=== PATIENT | male | born 1950 | race Caucasian/White ===

== ENCOUNTER → 2016-08-31 | Outpatient (REF) | payer MEDICARE ==
[~2016-08-31] MED LIST: /AMLO25TA PO; /PANT40TA OR; /TAMS4CA OR; ACET65TA OR; ADVA45AE INH; AMLO10TAB OR; ASPI81TA85 PO; BENA10TA PO; CEPACOL LOZENGE PO; CORE25TA PO; IBUP600T OR; LANCMIS XX; LEVA750T OR; LEVO750T PO; LOTENSIN HCT OR; MAALSUS OR; METF500T PO; OMEP40CA2 PO; OXYB5TA PO; OXYC-208 PO; PRED10PA PO; PRED20TA PO; RIBO100C PO; SOMA350T OR; SOMA350T PO; TESS100C PO; TYLENOL #3 OR; VENTAER IN; VENTAER INH; [UNRECOGNIZED DRUG - CODE] MT; [UNRECOGNIZED DRUG - SUPPLY]
[2016-08-31 12:58] LABS: ALBUMIN 3.5 GM/DL (3.2-5.2); ALBUMIN/GLOBULIN RATIO 1.03 (1.00-1.93); BILIRUBIN,DIRECT 0.2 MG/DL (0.0-0.2); BILIRUBIN,TOTAL 0.5 MG/DL (0.2-1.0); TOTAL PROTEIN 6.9 GM/DL (6.4-8.2)
== END ==
LOC: M LABDRWAD 12:22
PROVIDERS: ATTEND Internal Medicine Gastroenterology
DX: R93.3 Abnormal findings on diagnostic imaging of other parts of digestive tract (principal)

== ENCOUNTER → 2016-09-14 | Outpatient (CLI) | payer MEDICARE ==
[2016-09-14 13:44] LABS: ALBUMIN 3.3 GM/DL (3.2-5.2); ALBUMIN/GLOBULIN RATIO 0.87 (1.00-1.93); ALKALINE PHOSPHATASE 71 U/L (45-117); ALT/SGPT 20 U/L (12-78); ANION GAP 7 MEQ/L (8-16); AST/SGOT 16 U/L (15-37); BILIRUBIN,TOTAL 0.5 MG/DL (0.2-1.0); BLOOD UREA NITROGEN 11 MG/DL (7-18); CALCIUM LEVEL 8.9 MG/DL (8.8-10.2); CARBON DIOXIDE LEVEL 31 MEQ/L (21-32); CHLORIDE LEVEL 103 MEQ/L (98-107); CHOLESTEROL LEVEL 126 MG/DL (<200); CREATININE FOR GFR 1.01 MG/DL (0.70-1.30); GLOMERULAR FILTRATION RATE > 60.0 (>49); GLUCOSE, FASTING 121 MG/DL (80-110); POTASSIUM SERUM 4.6 MEQ/L (3.5-5.1); SODIUM LEVEL 141 MEQ/L (136-145); TOTAL PROTEIN 7.1 GM/DL (6.4-8.2); TRIGLYCERIDES LEVEL 130 MG/DL (<150)
== END ==
LOC: M LAB 12:37
PROVIDERS: ATTEND Physician Assistant
DX: E11.9 Type 2 diabetes mellitus without complications (principal); I10 Essential (primary) hypertension; E78.4 Other hyperlipidemia; Z12.5 Encounter for screening for malignant neoplasm of prostate

== ENCOUNTER → 2016-09-14 | Outpatient (CLI) | payer MEDICARE ==
[2016-09-14 13:41] LABS: BLOOD UREA NITROGEN 11 MG/DL (7-18); CREATININE FOR GFR 1.01 MG/DL (0.70-1.30); GLOMERULAR FILTRATION RATE > 60.0 (>49)
--- NOTE | 2016-09-14 19:45 | REP ---
MRI study of the abdomen without and with IV gadolinium: History: Gallbladder mass. Comparison sonography: 06/18/2016. MRI contrast dose: 17.8 mL of intravenous ProHance is administered. MR technique: Axial and coronal T1 and T2-weighted scans are obtained including true FISP, spin echo, turbo spin-echo, in and out of phase, and dynamically acquired sequential post gadolinium enhanced 2-D gradient echo T1 fat sat images. MRI findings: The gallbladder is somewhat distended and there is heterogeneous material in the dependent portion the gallbladder consistent with sludge and gravel like stones. Gallbladder wall is thin and no mass lesion is seen. No enhancement is seen post contrast within the intraluminal material in the gallbladder. No liver mass lesion is seen. No abnormal splenic or pancreatic enhancement or mass lesion is observed. There is a cyst in the lower pole right kidney and another cyst is seen at mid pole position of the left kidney. These measure 2.3 and 2.1 cm in greatest diameter respectively and appear to be simple cysts. No adrenal lesion is seen on either side. No pleural effusion or ascites is noted. Impression: Gravel like calculi and sludge in the gallbladder lumen. No evidence of gallbladder mass. Normal CBD and pancreatic ducts. Caliber. No abnormal contrast enhancement seen. Signed by Taras Urias MD 09/15/2016 10:04 A
== END ==
LOC: M RAD 12:27
PROVIDERS: ATTEND Surgery
DX: R93.3 Abnormal findings on diagnostic imaging of other parts of digestive tract (principal); K80.20 Calculus of gallbladder without cholecystitis without obstruction; E11.9 Type 2 diabetes mellitus without complications; I10 Essential (primary) hypertension; E78.4 Other hyperlipidemia; Z12.5 Encounter for screening for malignant neoplasm of prostate
CPT/HCPCS: 36415; 74183; 80053; 80061; 82043; 83036; A9576; G0103

== ENCOUNTER 2016-09-23 07:45 | Emergency (ER) | payer MEDICARE ==
[2016-09-23] MEDS ORDERED: predniSONE 20 MG TAB As Ordered ONE (08:09)
[2016-09-23] MEDS ORDERED: IPRATROPIUM 0.5MG/ALBUTEROL 2.5MG INH SOL UD 3ML (DUONEB)(J7620) As Ordered ONE (08:12)
[2016-09-23] MEDS ORDERED: BENZONATATE 100 MG CAP As Ordered ONE (09:03)
[2016-09-23] MEDS ORDERED: BUDESONIDE 0.5 MG/2 ML INHALATION SUSPENSION INH ONE (09:30)
--- NOTE | 2016-09-23 10:45 | EDDOCDS ---
Nurse's Notes [facility] Name: Amando Ovalle Age: 65 yrs Sex: Male : 1950 Arrival Date: 09/23/2016 Time: 07:45 Bed I3 / M3 Private MD: Diagnosis: Chronic obstructive pulmonary disease with (acute) exacerbation Presentation: 09/23 07:49 Presenting complaint: Patient states: non productive cough x 4 days - reports headache pml and joint pains. Adult Sepsis Screening: The patient does not have new or worsening altered mentation. Patient's respiratory rate is less than 22. Systolic blood pressure is greater than 100. Patient has a qSOFA score of 0- Negative Sepsis Screen. Suicide/Homicide risk assessment- the patient denies having any suicidal and/or homicidal ideations and does not present with any other emotional, behavioral or mental health complaints. Status: Patient is not a business services officer or dependent. Transition of care: patient was not received from another setting of care. 07:49 Method Of Arrival: Walkin/Carried/Asstd pml 07:49 Acuity: ZOE Level 4 pml Triage Assessment: 07:55 General: Appears in no apparent distress, Behavior is appropriate for age, cooperative. pml Pain: Location: scalp and back Pain currently is 7 out of 10 on a pain scale. HIV screening NA for this visit Offered previously. Historical: - Allergies: no known allergies; - Home Meds: 1. metformin 1,000 mg oral TG24 1 tab 2 times per day 2. amlodipine 10 mg oral tab 1 tab once daily 3. oxycodone 5 mg Oral tab 1 tab every 4-6 hours 4. carisoprodol 350 mg oral tab 1 tab 3 times per day 5. atorvastatin 40 mg oral tab 1 tab once daily 6. omeprazole 40 mg Oral cpDR 1 cap once daily 7. oxybutynin chloride 5 mg Oral tab daily 8. tamsulosin 0.4 mg oral cp24 1 cap once daily - PMHx: Diabetes - NIDDM: uncontrolled; High Cholesterol; Hypertension; Chronic Back pain; - PSHx: back surgery; Appendectomy; - Social history: Smoking status: Patient uses tobacco products, heavy tobacco smoker. No barriers to communication noted, The patient speaks fluent Icelandic, Speaks appropriately for age. - Family history: Not pertinent. - : The pt / caregiver states he / she is not on anticoagulants. Home medication list is obtained from patients' pharmacy. Unable to Verify Home Med List with the patient / caregiver. - Exposure Risk Screening:: None identified. Screenin:13 Screening information is obtained from the patient. Fall risk: No risks identified. ck1 Assistance ADL's: requires no assistance with activities of daily living. Abuse/DV Screen: The patient / caregiver reports he/she is: not in a situation that causes fear, pain or injury. Nutritional screening: No deficits noted. Advance Directives: Currently, there is no health care proxy. home support is adequate. Assessment: 08:13 General: Appears in no apparent distress, comfortable, Behavior is appropriate for age, ck1 cooperative. Pain: Location: head and chest Pain currently is 8 out of 10 on a pain scale. Aggravated by coughing. Respiratory: Respiratory effort is unlabored, Respiratory pattern is regular, symmetrical, Breath sounds are diminished Breath sounds with wheezes bilaterally. Derm: Skin is pink, warm & dry. 09:06 General: Appears in no apparent distress, comfortable, Behavior is appropriate for age, ck1 cooperative. Pain: Location: chest and head Pain currently is 8 out of 10 on a pain scale. Aggravated by cough. Respiratory: Respiratory effort is unlabored, Respiratory pattern is regular, symmetrical, Reports cough that is dry, persistent. Derm: Skin is pink, warm & dry. 10:26 General: Appears in no apparent distress, Behavior is appropriate for age, cooperative. mlb1 Pain: Location: chest and head Pain currently is 8 out of 10 on a pain scale. Respiratory: Airway is patent Respiratory effort is even, unlabored, Reports cough that is dry, persistent. Derm: No deficits noted. 10:44 General: Appears in no apparent distress, comfortable, Behavior is appropriate for age, ck1 cooperative. Pain: Location: head Pain currently is 8 out of 10 on a pain scale. Neurological: Level of Consciousness is awake, alert, obeys commands, Oriented to person, place, time. Respiratory: Respiratory effort is unlabored, Respiratory pattern is regular, symmetrical, Reports cough that is dry, persistent. Derm: Skin is pink, warm & dry. Vital Signs: 07:49 BP 139 / 87; Pulse 106; Resp 22; Temp 98.7; Pulse Ox 94% on R/A; Weight 90.72 kg; pml Height 5 ft. 11 in. (180.34 cm); 10:28 BP 118 / 55; Pulse 95; Resp 18; Temp 98.2(O); Pulse Ox 97% on R/A; Pain 8/10; jml1 07:49 Body Mass Index 27.89 (90.72 kg, 180.34 cm) [facility] Vitals: 07:49 Log In Time: September 23, 2016 at 07:46. [facility] ED Course: 07:46 Patient visited by Maddie Weiner, Reg. hs2 07:46 Patient moved to Waiting hs2 07:50 Triage Initiated pml 07:56 Patient visited by Rosa Jaquez,JUANPABLO. pml 07:56 Patient moved to I3 / M3 pml 08:04 Dean Rodriguez PA-C is PHCP. cc10 08:04 Karel Bustamante MD is Attending Physician. cc10 08:04 Patient visited by Dean Rodriguez PA-C. cc10 08:04 Patient visited by Dean Rodriguez PA-C. cc10 08:13 No IV's were initiated during this patient's visit. No procedures done that require ck1 assistance. 08:14 The patient / caregiver is instructed regarding the plan of care and ED course. ck1 08:39 Patient visited by Maribel Egan RN. ck1 09:05 Patient visited by Maribel Egan RN. ck1 09:45 Patient visited by Maribel Egan RN. ck1 10:27 Patient visited by Simeon Dominguez, JUANPABLO. mlb1 10:28 Patient visited by Jony Gonzalez. jml1 Administered Medications: 08:13 Drug: predniSONE 40 mg [prednisone 20 mg tablet (2 tabs)] Route: PO; ck1 08:14 Drug: Albuterol-Ipratropium 3 ml [ipratropium-albuterol 0.5 mg-3 mg(2.5 mg base)/3 mL js nebulization soln (3 mL)] Route: Inhalation; 09:06 Drug: Tessalon 200 mg Route: PO; ck1 10:01 Drug: Pulmicort 2 mg Route: Inhalation; js RT: 08:14 Initial Med Neb Given as ordered Patient was instructed and evaluated on procedure js Patient tolerated procedure well without adverse effect. Respiratory: Breath sounds are diminished bilaterally. 10:02 Subsequent Med Neb Given as ordered. Respiratory: Breath sounds are diminished js bilaterally. Order Results: There are currently no results for this order. Outcome: 10:34 Discharge ordered by Provider. cc10 10:43 Discharge Assessment: Patient awake, alert and oriented x 3. No cognitive and/or ck1 functional deficits noted. Patient verbalized understanding of disposition instructions. patient administered narcotics - no. The following High Risk Discharge criteria are identified: None. Discharged to home ambulatory. Condition: stable. Discharge instructions given to patient, Instructed on discharge instructions, follow up and referral plans. medication usage, Demonstrated understanding of instructions, medications, Pt was receptive of discharge instructions/ teaching. Prescriptions given X 4. No special radiology studies were completed. Property :Personal belongings accompany Pt. 10:45 Patient left the ED. ck1 Signatures: Louie Simon Michael B RN RN mlb1 Maribel Egan RN RN ck1 Jony Gonzalez jml1 Rosa Jaquez RN RN pml Dean Rodriguez, PA-C PA-C cc10 Maddie Weiner, Reg Reg hs2 Corrections: (The following items were deleted from the chart) 07:56 07:49 Acuity: ZOE Level 3 pml pml MTDD
--- NOTE | 2016-09-23 10:45 | EDDOCDS ---
Physician Documentation [facility] Name: Amando Ovalle Age: 65 yrs Sex: Male : 1950 Arrival Date: 09/23/2016 Time: 07:45 Bed I3 / M3 Private MD: Disposition: 09/23/16 10:34 Discharged to Home/Self Care. Impression: Chronic obstructive pulmonary disease with (acute) exacerbation. - Condition is Stable. - Discharge Instructions: Chronic Obstructive Pulmonary Disease. - Prescriptions for hydrocodone- guaifenesin 2.5-200 mg/5 mL Oral solution - take 10 milliliter by ORAL route every 6 hours As needed MDD: 40 ML; 150 milliliter. Prednisone 20 mg Oral Tablet - take 1 tablet by ORAL route once daily for 3 days; 3 tablet. Pulmicort Flexhaler 90 mcg/actuation - inhale 2 puff by INHALATION route 2 times per day; 1 unit. benzonatate 200 mg Oral Capsule - take 1 capsule by ORAL route 3 times per day As needed; 30 capsule. - Medication Reconciliation, Local Pharmacy Hours form. - Follow up: Private Physician; When: Call to arrange an appointment; Reason: Wound/Symptom Recheck, Recheck today's complaints, Worsening of conditions, Continuance of care. - Problem is new. - Symptoms have improved. Historical: - Allergies: no known allergies; - Home Meds: 1. metformin 1,000 mg oral TG24 1 tab 2 times per day 2. amlodipine 10 mg oral tab 1 tab once daily 3. oxycodone 5 mg Oral tab 1 tab every 4-6 hours 4. carisoprodol 350 mg oral tab 1 tab 3 times per day 5. atorvastatin 40 mg oral tab 1 tab once daily 6. omeprazole 40 mg Oral cpDR 1 cap once daily 7. oxybutynin chloride 5 mg Oral tab daily 8. tamsulosin 0.4 mg oral cp24 1 cap once daily - PMHx: Diabetes - NIDDM: uncontrolled; High Cholesterol; Hypertension; Chronic Back pain; - PSHx: back surgery; Appendectomy; - Social history: Smoking status: Patient uses tobacco products, heavy tobacco smoker. No barriers to communication noted, The patient speaks fluent [place], Speaks appropriately for age. - Family history: Not pertinent. - : The pt / caregiver states he / she is not on anticoagulants. Home medication list is obtained from patients' pharmacy. Unable to Verify Home Med List with the patient / caregiver. - Exposure Risk Screening:: None identified. Vital Signs: 09/23 07:49 BP 139 / 87; Pulse 106; Resp 22; Temp 98.7; Pulse Ox 94% on R/A; Weight 90.72 kg / 200 pml lbs; Height 5 ft. 11 in. (180.34 cm); 10:28 BP 118 / 55; Pulse 95; Resp 18; Temp 98.2(O); Pulse Ox 97% on R/A; Pain 8/10; jml1 07:49 Body Mass Index 27.89 (90.72 kg, 180.34 cm) pml MDM: 08:08 Albuterol-Ipratropium 3 ml Inhalation once ordered. cc10 08:08 Call Respiratory ordered. cc10 08:08 predniSONE 40 mg PO once; administer with food or milk ordered. cc10 08:08 Call Respiratory complete. ck1 08:09 Chest, 2 View (pa\E\lat) Ordered. EDMS 08:36 Financial registration complete. mpb 08:57 Tessalon 200 mg PO once ordered. cc10 08:57 Call Respiratory ordered. cc10 08:57 Pulmicort 2 mg Inhalation once ordered. cc10 08:59 Call Respiratory complete. ck1 10:21 Vital Signs ordered. cc10 Administered Medications: 08:13 Drug: predniSONE 40 mg [prednisone 20 mg tablet (2 tabs)] Route: PO; ck1 08:14 Drug: Albuterol-Ipratropium 3 ml [ipratropium-albuterol 0.5 mg-3 mg(2.5 mg base)/3 mL js nebulization soln (3 mL)] Route: Inhalation; 09:06 Drug: Tessalon 200 mg Route: PO; ck1 10:01 Drug: Pulmicort 2 mg Route: Inhalation; js Signatures: Dispatcher [employer] EDMS Maribel Egan RN RN ck1 Rosa Jaquez RN RN pml Dean Rodriguez, PA-C PA-C cc10 Simeon Phan, Reg Reg Louie Rivers MTDD
--- NOTE | 2016-09-23 13:45 | REP ---
CHEST PA AND LATERAL: 09/23/2016. Clinical history: Cough. Comparison: 12/25/2014, 07/09/2014. Findings: Lungs are well inflated. There is no pleural effusion, dense consolidation or pneumothorax. Underlying interstitial fibrotic changes noted. There is peribronchial thickening noted bilaterally suggesting some bronchitis or reactive airway disease. No pulmonary edema. There is no cardiomegaly. The aorta is calcified at the arch but without aneurysm. Airway intact. No mediastinal or hilar mass. Bones show no compression deformity. There is no free air under the diaphragm. Impression: 1. Perihilar changes of bronchitis or reactive airway disease without dense consolidation, pleural effusion, cardiomegaly or edema. Signed by Flavio Tabor MD 09/23/2016 07:22 P
--- NOTE | 2016-09-25 11:46 | EDDOCDS ---
Nurse's Notes [facility] Name: Amando Ovalle Age: 65 yrs Sex: Male : 1950 Arrival Date: 09/23/2016 Time: 07:45 Bed I3 / M3 Private MD: Diagnosis: Chronic obstructive pulmonary disease with (acute) exacerbation Presentation: 09/23 07:49 Presenting complaint: Patient states: non productive cough x 4 days - reports headache pml and joint pains. Adult Sepsis Screening: The patient does not have new or worsening altered mentation. Patient's respiratory rate is less than 22. Systolic blood pressure is greater than 100. Patient has a qSOFA score of 0- Negative Sepsis Screen. Suicide/Homicide risk assessment- the patient denies having any suicidal and/or homicidal ideations and does not present with any other emotional, behavioral or mental health complaints. Status: Patient is not a bibliographic services specialist or dependent. Transition of care: patient was not received from another setting of care. 07:49 Method Of Arrival: Walkin/Carried/Asstd pml 07:49 Acuity: ZOE Level 4 pml Triage Assessment: 07:55 General: Appears in no apparent distress, Behavior is appropriate for age, cooperative. pml Pain: Location: scalp and back Pain currently is 7 out of 10 on a pain scale. HIV screening NA for this visit Offered previously. Historical: - Allergies: no known allergies; - Home Meds: 1. metformin 1,000 mg oral TG24 1 tab 2 times per day 2. amlodipine 10 mg oral tab 1 tab once daily 3. oxycodone 5 mg Oral tab 1 tab every 4-6 hours 4. carisoprodol 350 mg oral tab 1 tab 3 times per day 5. atorvastatin 40 mg oral tab 1 tab once daily 6. omeprazole 40 mg Oral cpDR 1 cap once daily 7. oxybutynin chloride 5 mg Oral tab daily 8. tamsulosin 0.4 mg oral cp24 1 cap once daily - PMHx: Diabetes - NIDDM: uncontrolled; High Cholesterol; Hypertension; Chronic Back pain; - PSHx: back surgery; Appendectomy; - Social history: Smoking status: Patient uses tobacco products, heavy tobacco smoker. No barriers to communication noted, The patient speaks fluent Albanian, Speaks appropriately for age. - Family history: Not pertinent. - : The pt / caregiver states he / she is not on anticoagulants. Home medication list is obtained from patients' pharmacy. Unable to Verify Home Med List with the patient / caregiver. - Exposure Risk Screening:: None identified. Screenin:13 Screening information is obtained from the patient. Fall risk: No risks identified. ck1 Assistance ADL's: requires no assistance with activities of daily living. Abuse/DV Screen: The patient / caregiver reports he/she is: not in a situation that causes fear, pain or injury. Nutritional screening: No deficits noted. Advance Directives: Currently, there is no health care proxy. home support is adequate. Assessment: 08:13 General: Appears in no apparent distress, comfortable, Behavior is appropriate for age, ck1 cooperative. Pain: Location: head and chest Pain currently is 8 out of 10 on a pain scale. Aggravated by coughing. Respiratory: Respiratory effort is unlabored, Respiratory pattern is regular, symmetrical, Breath sounds are diminished Breath sounds with wheezes bilaterally. Derm: Skin is pink, warm & dry. 09:06 General: Appears in no apparent distress, comfortable, Behavior is appropriate for age, ck1 cooperative. Pain: Location: chest and head Pain currently is 8 out of 10 on a pain scale. Aggravated by cough. Respiratory: Respiratory effort is unlabored, Respiratory pattern is regular, symmetrical, Reports cough that is dry, persistent. Derm: Skin is pink, warm & dry. 10:26 General: Appears in no apparent distress, Behavior is appropriate for age, cooperative. mlb1 Pain: Location: chest and head Pain currently is 8 out of 10 on a pain scale. Respiratory: Airway is patent Respiratory effort is even, unlabored, Reports cough that is dry, persistent. Derm: No deficits noted. 10:44 General: Appears in no apparent distress, comfortable, Behavior is appropriate for age, ck1 cooperative. Pain: Location: head Pain currently is 8 out of 10 on a pain scale. Neurological: Level of Consciousness is awake, alert, obeys commands, Oriented to person, place, time. Respiratory: Respiratory effort is unlabored, Respiratory pattern is regular, symmetrical, Reports cough that is dry, persistent. Derm: Skin is pink, warm & dry. Vital Signs: 07:49 BP 139 / 87; Pulse 106; Resp 22; Temp 98.7; Pulse Ox 94% on R/A; Weight 90.72 kg; pml Height 5 ft. 11 in. (180.34 cm); 10:28 BP 118 / 55; Pulse 95; Resp 18; Temp 98.2(O); Pulse Ox 97% on R/A; Pain 8/10; jml1 07:49 Body Mass Index 27.89 (90.72 kg, 180.34 cm) [facility] Vitals: 07:49 Log In Time: September 23, 2016 at 07:46. [facility] ED Course: 07:46 Patient visited by Maddie Weiner, Reg. hs2 07:46 Patient moved to Waiting hs2 07:50 Triage Initiated pml 07:56 Patient visited by Rosa Jaquez,JUANPABLO. pml 07:56 Patient moved to I3 / M3 pml 08:04 Dean Rodriguez PA-C is PHCP. cc10 08:04 Karel Bustamante MD is Attending Physician. cc10 08:04 Patient visited by Dean Rodriguez PA-C. cc10 08:04 Patient visited by Dean Rodriguez PA-C. cc10 08:13 No IV's were initiated during this patient's visit. No procedures done that require ck1 assistance. 08:14 The patient / caregiver is instructed regarding the plan of care and ED course. ck1 08:39 Patient visited by Maribel Egan RN. ck1 09:05 Patient visited by Maribel Egan,JUANPABLO. ck1 09:45 Patient visited by Maribel Egan,JUANPABLO. ck1 10:27 Patient visited by Simeon Dominguez, JUANPABLO. mlb1 10:28 Patient visited by Jony Gonzalez. jml1 13:56 Chest, 2 View (pa\E\lat) Returned. EDMS 14:34 [facility] Payment Agreement was scanned into [employer] and attached to record. mpb 21:01 T-Sheet-- Draft Copy was scanned into [employer] and attached to record. klr Administered Medications: 08:13 Drug: predniSONE 40 mg [prednisone 20 mg tablet (2 tabs)] Route: PO; ck1 08:14 Drug: Albuterol-Ipratropium 3 ml [ipratropium-albuterol 0.5 mg-3 mg(2.5 mg base)/3 mL js nebulization soln (3 mL)] Route: Inhalation; 09:06 Drug: Tessalon 200 mg Route: PO; ck1 10:01 Drug: Pulmicort 2 mg Route: Inhalation; js RT: 08:14 Initial Med Neb Given as ordered Patient was instructed and evaluated on procedure js Patient tolerated procedure well without adverse effect. Respiratory: Breath sounds are diminished bilaterally. 10:02 Subsequent Med Neb Given as ordered. Respiratory: Breath sounds are diminished js bilaterally. Order Results: Radiology Order: Chest, 2 View (pa\E\lat) Test: Chest, 2 View (pa\E\lat) REASON FOR EXAMINATION: Cough; CHEST PA AND LATERAL: 09/23/2016.; ; Clinical history: Cough.; ; Comparison: 12/25/2014, 07/09/2014.; ; Findings: Lungs are well inflated. There is no pleural effusion, dense; consolidation or pneumothorax. Underlying interstitial fibrotic changes noted.; There is peribronchial thickening noted bilaterally suggesting some bronchitis or; reactive airway disease. No pulmonary edema. There is no cardiomegaly. The; aorta is calcified at the arch but without aneurysm. Airway intact. No; mediastinal or hilar mass. Bones show no compression deformity. There is no; free air under the diaphragm.; ; Impression:; ; 1. Perihilar changes of bronchitis or reactive airway disease without dense; consolidation, pleural effusion, cardiomegaly or edema.; ; ; Signed by; Flavio Tabor MD 09/23/2016 07:22 P; Outcome: 10:34 Discharge ordered by Provider. cc10 10:43 Discharge Assessment: Patient awake, alert and oriented x 3. No cognitive and/or ck1 functional deficits noted. Patient verbalized understanding of disposition instructions. patient administered narcotics - no. The following High Risk Discharge criteria are identified: None. Discharged to home ambulatory. Condition: stable. Discharge instructions given to patient, Instructed on discharge instructions, follow up and referral plans. medication usage, Demonstrated understanding of instructions, medications, Pt was receptive of discharge instructions/ teaching. Prescriptions given X 4. No special radiology studies were completed. Property :Personal belongings accompany Pt. 10:45 Patient left the ED. ck1 Signatures: Dispatcher [employer] EDLouie Hogue Michael B RN RN mlb1 Maribel Egan RN RN ck1 Jony Gonzalez jml1 Rosa Jaquez RN RN pml Dean Rodriguez PAMarlonC PA-C cc10 Simeon Phan, Reg Reg mpb Maddie Weiner, Reg Reg hs2 Gill Serrano Corrections: (The following items were deleted from the chart) 07:56 07:49 Acuity: ZOE Level 3 pml pml Chart Complete MTDD
--- NOTE | 2016-09-25 11:46 | EDDOCDS ---
Physician Documentation [facility] Name: Amando Ovalle Age: 65 yrs Sex: Male : 1950 Arrival Date: 09/23/2016 Time: 07:45 Bed I3 / M3 Private MD: Disposition: 09/23/16 10:34 Discharged to Home/Self Care. Impression: Chronic obstructive pulmonary disease with (acute) exacerbation. - Condition is Stable. - Discharge Instructions: Chronic Obstructive Pulmonary Disease. - Prescriptions for hydrocodone- guaifenesin 2.5-200 mg/5 mL Oral solution - take 10 milliliter by ORAL route every 6 hours As needed MDD: 40 ML; 150 milliliter. Prednisone 20 mg Oral Tablet - take 1 tablet by ORAL route once daily for 3 days; 3 tablet. Pulmicort Flexhaler 90 mcg/actuation - inhale 2 puff by INHALATION route 2 times per day; 1 unit. benzonatate 200 mg Oral Capsule - take 1 capsule by ORAL route 3 times per day As needed; 30 capsule. - Medication Reconciliation, Local Pharmacy Hours form. - Follow up: Private Physician; When: Call to arrange an appointment; Reason: Wound/Symptom Recheck, Recheck today's complaints, Worsening of conditions, Continuance of care. - Problem is new. - Symptoms have improved. Historical: - Allergies: no known allergies; - Home Meds: 1. metformin 1,000 mg oral TG24 1 tab 2 times per day 2. amlodipine 10 mg oral tab 1 tab once daily 3. oxycodone 5 mg Oral tab 1 tab every 4-6 hours 4. carisoprodol 350 mg oral tab 1 tab 3 times per day 5. atorvastatin 40 mg oral tab 1 tab once daily 6. omeprazole 40 mg Oral cpDR 1 cap once daily 7. oxybutynin chloride 5 mg Oral tab daily 8. tamsulosin 0.4 mg oral cp24 1 cap once daily - PMHx: Diabetes - NIDDM: uncontrolled; High Cholesterol; Hypertension; Chronic Back pain; - PSHx: back surgery; Appendectomy; - Social history: Smoking status: Patient uses tobacco products, heavy tobacco smoker. No barriers to communication noted, The patient speaks fluent Estonian, Speaks appropriately for age. - Family history: Not pertinent. - : The pt / caregiver states he / she is not on anticoagulants. Home medication list is obtained from patients' pharmacy. Unable to Verify Home Med List with the patient / caregiver. - Exposure Risk Screening:: None identified. Vital Signs: 12 07:49 BP 139 / 87; Pulse 106; Resp 22; Temp 98.7; Pulse Ox 94% on R/A; Weight 90.72 kg / 200 pml lbs; Height 5 ft. 11 in. (180.34 cm); 10:28 BP 118 / 55; Pulse 95; Resp 18; Temp 98.2(O); Pulse Ox 97% on R/A; Pain 8/10; jml1 07:49 Body Mass Index 27.89 (90.72 kg, 180.34 cm) pml MDM: 08:08 Albuterol-Ipratropium 3 ml Inhalation once ordered. cc10 08:08 Call Respiratory ordered. cc10 08:08 predniSONE 40 mg PO once; administer with food or milk ordered. cc10 08:08 Call Respiratory complete. ck1 08:09 Chest, 2 View (pa\E\lat) Ordered. EDMS 08:36 Financial registration complete. mpb 08:57 Tessalon 200 mg PO once ordered. cc10 08:57 Call Respiratory ordered. cc10 08:57 Pulmicort 2 mg Inhalation once ordered. cc10 08:59 Call Respiratory complete. ck1 10:21 Vital Signs ordered. cc10 14:34 [facility] Payment Agreement was scanned into [employer] and attached to record. mpb 21:01 T-Sheet-- Draft Copy was scanned into [employer] and attached to record. klr Administered Medications: 08:13 Drug: predniSONE 40 mg [prednisone 20 mg tablet (2 tabs)] Route: PO; ck1 08:14 Drug: Albuterol-Ipratropium 3 ml [ipratropium-albuterol 0.5 mg-3 mg(2.5 mg base)/3 mL js nebulization soln (3 mL)] Route: Inhalation; 09:06 Drug: Tessalon 200 mg Route: PO; ck1 10:01 Drug: Pulmicort 2 mg Route: Inhalation; js Signatures: Dispatcher [employer] EDMS Maribel Egan RN RN ck1 Rosa Jaquez RN RN pml Dean Rodriguez, PA-C PA-C cc10 Simeon Phan, Reg Reg mpb Gill Serrano James js The chart was reviewed and I authenticate all verbal orders and agree with the evaluation and treatment provided.Attachments: 14:34 [facility] Payment Agreement mpb 21:01 T-Sheet-- Draft Copy klr Chart Complete MTDD
--- NOTE | 2016-09-25 11:46 | EDDOCDS ---
Physician Documentation [facility] Name: Amando Ovalle Age: 65 yrs Sex: Male : 1950 Arrival Date: 09/23/2016 Time: 07:45 Bed I3 / M3 Private MD: Disposition: 09/23/16 10:34 Discharged to Home/Self Care. Impression: Chronic obstructive pulmonary disease with (acute) exacerbation. - Condition is Stable. - Discharge Instructions: Chronic Obstructive Pulmonary Disease. - Prescriptions for hydrocodone- guaifenesin 2.5-200 mg/5 mL Oral solution - take 10 milliliter by ORAL route every 6 hours As needed MDD: 40 ML; 150 milliliter. Prednisone 20 mg Oral Tablet - take 1 tablet by ORAL route once daily for 3 days; 3 tablet. Pulmicort Flexhaler 90 mcg/actuation - inhale 2 puff by INHALATION route 2 times per day; 1 unit. benzonatate 200 mg Oral Capsule - take 1 capsule by ORAL route 3 times per day As needed; 30 capsule. - Medication Reconciliation, Local Pharmacy Hours form. - Follow up: Private Physician; When: Call to arrange an appointment; Reason: Wound/Symptom Recheck, Recheck today's complaints, Worsening of conditions, Continuance of care. - Problem is new. - Symptoms have improved. Historical: - Allergies: no known allergies; - Home Meds: 1. metformin 1,000 mg oral TG24 1 tab 2 times per day 2. amlodipine 10 mg oral tab 1 tab once daily 3. oxycodone 5 mg Oral tab 1 tab every 4-6 hours 4. carisoprodol 350 mg oral tab 1 tab 3 times per day 5. atorvastatin 40 mg oral tab 1 tab once daily 6. omeprazole 40 mg Oral cpDR 1 cap once daily 7. oxybutynin chloride 5 mg Oral tab daily 8. tamsulosin 0.4 mg oral cp24 1 cap once daily - PMHx: Diabetes - NIDDM: uncontrolled; High Cholesterol; Hypertension; Chronic Back pain; - PSHx: back surgery; Appendectomy; - Social history: Smoking status: Patient uses tobacco products, heavy tobacco smoker. No barriers to communication noted, The patient speaks fluent Urdu, Speaks appropriately for age. - Family history: Not pertinent. - : The pt / caregiver states he / she is not on anticoagulants. Home medication list is obtained from patients' pharmacy. Unable to Verify Home Med List with the patient / caregiver. - Exposure Risk Screening:: None identified. Vital Signs: 12 07:49 BP 139 / 87; Pulse 106; Resp 22; Temp 98.7; Pulse Ox 94% on R/A; Weight 90.72 kg / 200 pml lbs; Height 5 ft. 11 in. (180.34 cm); 10:28 BP 118 / 55; Pulse 95; Resp 18; Temp 98.2(O); Pulse Ox 97% on R/A; Pain 8/10; jml1 07:49 Body Mass Index 27.89 (90.72 kg, 180.34 cm) pml MDM: 08:08 Albuterol-Ipratropium 3 ml Inhalation once ordered. cc10 08:08 Call Respiratory ordered. cc10 08:08 predniSONE 40 mg PO once; administer with food or milk ordered. cc10 08:08 Call Respiratory complete. ck1 08:09 Chest, 2 View (pa\E\lat) Ordered. EDMS 08:36 Financial registration complete. mpb 08:57 Tessalon 200 mg PO once ordered. cc10 08:57 Call Respiratory ordered. cc10 08:57 Pulmicort 2 mg Inhalation once ordered. cc10 08:59 Call Respiratory complete. ck1 10:21 Vital Signs ordered. cc10 14:34 [facility] Payment Agreement was scanned into [employer] and attached to record. mpb 21:01 T-Sheet-- Draft Copy was scanned into [employer] and attached to record. klr Administered Medications: 08:13 Drug: predniSONE 40 mg [prednisone 20 mg tablet (2 tabs)] Route: PO; ck1 08:14 Drug: Albuterol-Ipratropium 3 ml [ipratropium-albuterol 0.5 mg-3 mg(2.5 mg base)/3 mL js nebulization soln (3 mL)] Route: Inhalation; 09:06 Drug: Tessalon 200 mg Route: PO; ck1 10:01 Drug: Pulmicort 2 mg Route: Inhalation; js Signatures: Dispatcher [employer] EDMS Maribel Egan RN RN ck1 Rosa Jaquez RN RN pml Dean Rodriguez, PA-C PA-C cc10 Simeon Phan, Reg Reg mpb Gill Serrano James js The chart was reviewed and I authenticate all verbal orders and agree with the evaluation and treatment provided.Attachments: 14:34 [facility] Payment Agreement mpb 21:01 T-Sheet-- Draft Copy klr Chart Complete MTDD
== END 2016-09-23 10:45 | disposition home or self-care (01) ==
LOC: M ED 07:45
DX: J44.1 Chronic obstructive pulmonary disease with (acute) exacerbation (principal); E11.9 Type 2 diabetes mellitus without complications; I10 Essential (primary) hypertension; E78.00 Pure hypercholesterolemia, unspecified; G89.29 Other chronic pain; M54.9 Dorsalgia, unspecified; Z72.0 Tobacco use; Z79.84 Long term (current) use of oral hypoglycemic drugs; Z79.899 Other long term (current) drug therapy

== ENCOUNTER → 2016-12-12 | Outpatient (REF) | payer MEDICARE | LOC: M SMT 17:05 | PROVIDERS: ATTEND Nurse Practitioner Women's Health | DX: N40.0 Benign prostatic hyperplasia without lower urinary tract symptoms (principal) | CPT/HCPCS: 51798; 81001; 87086; G0463 ==

== ENCOUNTER → 2017-07-17 | Outpatient (CLI) | payer MEDICARE | LOC: M PAIN 13:30 | DX: G89.29 Other chronic pain (principal); M96.1 Postlaminectomy syndrome, not elsewhere classified; M47.816 Spondylosis without myelopathy or radiculopathy, lumbar region; I10 Essential (primary) hypertension; E11.9 Type 2 diabetes mellitus without complications; F17.210 Nicotine dependence, cigarettes, uncomplicated; E78.5 Hyperlipidemia, unspecified; N40.0 Benign prostatic hyperplasia without lower urinary tract symptoms; Z79.899 Other long term (current) drug therapy; Z79.891 Long term (current) use of opiate analgesic; Z79.84 Long term (current) use of oral hypoglycemic drugs | CPT/HCPCS: G0463 ==

== ENCOUNTER → 2017-09-02 | Outpatient (CLI) | payer MEDICARE | LOC: M PAIN 13:45 | DX: M96.1 Postlaminectomy syndrome, not elsewhere classified (principal); M47.816 Spondylosis without myelopathy or radiculopathy, lumbar region; I10 Essential (primary) hypertension; E11.9 Type 2 diabetes mellitus without complications; G89.29 Other chronic pain; N40.0 Benign prostatic hyperplasia without lower urinary tract symptoms; F17.210 Nicotine dependence, cigarettes, uncomplicated; Z79.891 Long term (current) use of opiate analgesic; Z79.899 Other long term (current) drug therapy; Z79.82 Long term (current) use of aspirin | CPT/HCPCS: G0463 ==

== ENCOUNTER → 2017-10-21 | Outpatient (CLI) | payer MEDICARE | LOC: M PAIN 09:15 | DX: M47.816 Spondylosis without myelopathy or radiculopathy, lumbar region (principal); M96.1 Postlaminectomy syndrome, not elsewhere classified; M79.1 Myalgia; G89.29 Other chronic pain; I10 Essential (primary) hypertension; E11.9 Type 2 diabetes mellitus without complications; F17.210 Nicotine dependence, cigarettes, uncomplicated; E78.5 Hyperlipidemia, unspecified; Z79.82 Long term (current) use of aspirin; Z79.84 Long term (current) use of oral hypoglycemic drugs; Z79.899 Other long term (current) drug therapy | CPT/HCPCS: G0463 ==

== ENCOUNTER → 2017-10-24 | Outpatient (CLI) | payer MEDICARE | LOC: M ADAMS 09:19 | DX: S20.212A Contusion of left front wall of thorax, initial encounter (principal); X58.XXXA Exposure to other specified factors, initial encounter; Y92.89 Other specified places as the place of occurrence of the external cause; Y99.9 Unspecified external cause status; Y93.89 Activity, other specified | CPT/HCPCS: 71101 ==

== ENCOUNTER 2017-10-28 09:27 | Emergency (ER) | payer MEDICARE ==
[2017-10-28] MEDS: IPRATROPIUM 0.5MG/ALBUTEROL 2.5MG INH SOL UD 3ML (DUONEB)(J7620) NEB (10:12)
[2017-10-28] MEDS: BENZONATATE 100 MG CAP PO (10:14)
[2017-10-28 10:33] LABS: BASO # 0.1 10^3/uL (0.0-0.2); BASO % 0.3 % (0.0-1.0); EOS # 0.3 10^3/uL (0.0-0.50); EOS % 1.3 % (0.0-3.0); HEMOGLOBIN 14.9 g/dl (14.0-18.0); IMMATURE GRANULOCYTE % 0.5 % (0-3.0); LYMPH # 4.2 10^3/uL (1.5-4.5); LYMPH % 20.8 % (24.0-44.0); MEAN CORPUSCULAR HEMOGLOBIN 30.1 pg (27.0-33.0); MEAN CORPUSCULAR HGB CONC 31.7 g/dl (32.0-36.5); MEAN CORPUSCULAR VOLUME 94.9 fl (80.0-96.0); MONO # 1.7 10^3/uL (0.0-0.8); MONO % 8.5 % (0.0-5.0); NEUTROPHILS # 13.8 10^3/uL (1.8-7.7); NEUTROPHILS % 68.6 % (36.0-66.0); PLATELET COUNT, AUTOMATED 292 10^3/uL (150-450); RED BLOOD COUNT 4.95 10^6/uL (4.30-6.10); RED CELL DISTRIBUTION WIDTH 14.5 % (11.5-14.5); WHITE BLOOD COUNT 20.1 10^3/uL (4.0-10.0)
[2017-10-28 10:49] LABS: D-DIMER QUANT 1572.5 ng/ml (<500)
[2017-10-28 10:54] LABS: ANION GAP 9 MEQ/L (8-16); BLOOD UREA NITROGEN 12 MG/DL (7-18); CALCIUM LEVEL 8.8 MG/DL (8.8-10.2); CARBON DIOXIDE LEVEL 29 MEQ/L (21-32); CHLORIDE LEVEL 100 MEQ/L (98-107); CREATININE FOR GFR 1.16 MG/DL (0.70-1.30); GLOMERULAR FILTRATION RATE > 60.0 (>49); GLUCOSE, FASTING 136 MG/DL (70-100); POTASSIUM SERUM 4.3 MEQ/L (3.5-5.1); SODIUM LEVEL 138 MEQ/L (136-145)
[2017-10-28] MEDS: MORPHINE 4 MG/ML 1ML VIAL (J2270) IV (11:19)
[2017-10-28] MEDS ORDERED: ISOVUE-370 76% 100ML VIAL (Q9967) As Ordered (11:55)
[2017-10-28] MEDS: METHOCARBAMOL 750 MG TAB PO (12:06)
[2017-10-28 12:35] LABS: INFLUENZA A AMPLIFICATION NEGATIVE (NEGATIVE); INFLUENZA B AMPLIFICATION NEGATIVE (NEGATIVE)
== END 2017-10-28 13:31 | disposition home or self-care (01) ==
LOC: M ED 09:27
DX: J18.1 Lobar pneumonia, unspecified organism (principal); S20.222A Contusion of left back wall of thorax, initial encounter; W00.9XXA Unspecified fall due to ice and snow, initial encounter; Y92.89 Other specified places as the place of occurrence of the external cause; E11.9 Type 2 diabetes mellitus without complications; I10 Essential (primary) hypertension; M54.9 Dorsalgia, unspecified; G89.29 Other chronic pain; F17.210 Nicotine dependence, cigarettes, uncomplicated; Z79.51 Long term (current) use of inhaled steroids; Z79.899 Other long term (current) drug therapy; Z79.82 Long term (current) use of aspirin; Z98.890 Other specified postprocedural states
CPT/HCPCS: J2270

== ENCOUNTER → 2017-11-06 | Outpatient (CLI) | payer MEDICARE | LOC: M PAIN 14:00 | DX: M96.1 Postlaminectomy syndrome, not elsewhere classified (principal); M79.1 Myalgia; M47.816 Spondylosis without myelopathy or radiculopathy, lumbar region; G89.29 Other chronic pain; I10 Essential (primary) hypertension; E11.9 Type 2 diabetes mellitus without complications; F17.210 Nicotine dependence, cigarettes, uncomplicated; E78.5 Hyperlipidemia, unspecified; Z79.82 Long term (current) use of aspirin; Z79.84 Long term (current) use of oral hypoglycemic drugs; Z79.899 Other long term (current) drug therapy; Z86.19 Personal history of other infectious and parasitic diseases | CPT/HCPCS: G0463 ==

== ENCOUNTER → 2018-01-08 | Outpatient (REF) | payer MEDICARE ==
[2018-01-08 17:50] LABS: AMMONIA 71 uMOL/L (<32)
[2018-01-08 22:19] LABS: ESTIMATED AVERAGE GLUCOSE 140 MG/DL (60-110); HEMOGLOBIN A1c 6.5 %
[2018-01-08 22:38] LABS: BASO # 0.1 10^3/uL (0.0-0.2); BASO % 0.6 % (0.0-1.0); EOS # 0.5 10^3/uL (0.0-0.50); EOS % 3.4 % (0.0-3.0); HEMATOCRIT 40.8 % (42.0-52.0); HEMOGLOBIN 13.7 g/dl (13.5-17.5); IMMATURE GRANULOCYTE % 0.4 % (0-3.0); LYMPH % 34.3 % (24.0-44.0); MEAN CORPUSCULAR HEMOGLOBIN 34.2 pg (27.0-33.0); MEAN CORPUSCULAR HGB CONC 33.6 g/dl (32.0-36.5); MEAN CORPUSCULAR VOLUME 101.7 fl (80.0-96.0); MONO % 7.3 % (0.0-5.0); NEUTROPHILS # 7.7 10^3/uL (1.8-7.7); PLATELET COUNT, AUTOMATED 256 10^3/uL (150-450); RED BLOOD COUNT 4.01 10^6/uL (4.30-6.10); RED CELL DISTRIBUTION WIDTH 14.9 % (11.5-14.5); WHITE BLOOD COUNT 14.2 10^3/uL (4.0-10.0)
[2018-01-08 23:39] LABS: ALBUMIN 3.5 GM/DL (3.2-5.2); ALBUMIN/GLOBULIN RATIO 0.97 (1.00-1.93); ALKALINE PHOSPHATASE 71 U/L (45-117); ALT/SGPT 20 U/L (12-78); ANION GAP 5 MEQ/L (8-16); AST/SGOT 27 U/L (7-37); BILIRUBIN,TOTAL 0.6 MG/DL (0.2-1.0); BLOOD UREA NITROGEN 18 MG/DL (7-18); CALCIUM LEVEL 8.5 MG/DL (8.8-10.2); CARBON DIOXIDE LEVEL 30 MEQ/L (21-32); CHLORIDE LEVEL 104 MEQ/L (98-107); CHOLESTEROL LEVEL 76 MG/DL (<200); CHOLESTEROL RISK RATIO 2.375 (<5); CREATININE FOR GFR 1.33 MG/DL (0.70-1.30); GLOMERULAR FILTRATION RATE 57.3 (>49); GLUCOSE, FASTING 73 MG/DL (70-100); HDL CHOLESTEROL 32 MG/DL (>40); LDL CHOLESTEROL 30.8 MG/DL (<100); NON-HDL-C 44 MG/DL; POTASSIUM SERUM 4.3 MEQ/L (3.5-5.1); SODIUM LEVEL 139 MEQ/L (136-145); TOTAL PROTEIN 7.1 GM/DL (6.4-8.2); TRIGLYCERIDES LEVEL 66 MG/DL (<150)
[2018-01-08 23:53] LABS: LYMPH # 4.9 10^3/uL (1.5-4.5); POSITIVE DIFF POS FLAG
[2018-01-09 02:59] LABS: SLIDE REVIEW Report; SOURCE PERIPHERAL SMEAR
[2018-01-09 03:00] LABS: REASON FOR REVIEW WBC/LEUKEMIA/BLAST
[2018-01-09 14:38] LABS: TOTAL 25(OH) VITAMIN D 13.5 NG/ML (30.0-100.0)
[2018-01-10 10:47] LABS: ALPHA FETOPROTEIN TUMOR QUANT 1.5 NG/ML (<8.1)
== END ==
LOC: M SFHCADAM 07:34
DX: E11.9 Type 2 diabetes mellitus without complications (principal); I10 Essential (primary) hypertension; K74.60 Unspecified cirrhosis of liver; D72.828 Other elevated white blood cell count
CPT/HCPCS: 82140

== ENCOUNTER → 2018-01-13 | Outpatient (REF) | payer MEDICARE ==
[2018-01-13 13:09] LABS: CREATININE, URINE 74.3 MG/DL; MALB URINE SIEMENS 8.7 MG/L; MAU/CREAT RATIO 11.7 MCG/MG (0.0-30.0)
== END ==
LOC: M SFHCADAM 12:19
DX: K74.60 Unspecified cirrhosis of liver (principal); E11.9 Type 2 diabetes mellitus without complications; I10 Essential (primary) hypertension
CPT/HCPCS: 82043

== ENCOUNTER → 2018-05-06 | Outpatient (CLI) | payer MEDICARE | LOC: M ADAMS 15:37 | DX: M19.012 Primary osteoarthritis, left shoulder (principal); M25.78 Osteophyte, vertebrae; S22.42XD Multiple fractures of ribs, left side, subsequent encounter for fracture with routine healing; M47.816 Spondylosis without myelopathy or radiculopathy, lumbar region; M54.2 Cervicalgia; M25.512 Pain in left shoulder | CPT/HCPCS: 72050 ==

== ENCOUNTER → 2018-05-16 | Outpatient (CLI) | payer MEDICARE | LOC: M RAD 07:11 | DX: S46.912A Strain of unspecified muscle, fascia and tendon at shoulder and upper arm level, left arm, initial encounter (principal); M19.012 Primary osteoarthritis, left shoulder; X58.XXXA Exposure to other specified factors, initial encounter; Y92.9 Unspecified place or not applicable | CPT/HCPCS: 73221 ==

== ENCOUNTER → 2018-07-24 | Outpatient (REF) | payer MEDICARE ==
[2018-07-24 13:25] LABS: HEMATOCRIT 47.8 % (42.0-52.0); HEMOGLOBIN 15.7 g/dl (13.5-17.5); MEAN CORPUSCULAR HEMOGLOBIN 33.4 pg (27.0-33.0); MEAN CORPUSCULAR HGB CONC 32.8 g/dl (32.0-36.5); MEAN CORPUSCULAR VOLUME 101.7 fl (80.0-96.0); PLATELET COUNT, AUTOMATED 330 10^3/uL (150-450); RED CELL DISTRIBUTION WIDTH 14.1 % (11.5-14.5)
[2018-07-24 13:42] LABS: WHITE BLOOD COUNT 21.7 10^3/uL (4.0-10.0)
[2018-07-24 13:49] LABS: ADD MANUAL DIFFER YES; DIFF SLIDE NUMBER 212; POSITIVE DIFF POS FLAG
[2018-07-24 14:00] LABS: ALBUMIN 3.2 GM/DL (3.2-5.2); ALBUMIN/GLOBULIN RATIO 0.84 (1.00-1.93); ALKALINE PHOSPHATASE 75 U/L (45-117); ALT/SGPT 17 U/L (12-78); ANION GAP 4 MEQ/L (8-16); AST/SGOT 14 U/L (7-37); BILIRUBIN,TOTAL 0.4 MG/DL (0.2-1.0); BLOOD UREA NITROGEN 8 MG/DL (7-18); CALCIUM LEVEL 8.8 MG/DL (8.8-10.2); CARBON DIOXIDE LEVEL 35 MEQ/L (21-32); CHLORIDE LEVEL 101 MEQ/L (98-107); CHOLESTEROL LEVEL 135 MG/DL (<200); CHOLESTEROL RISK RATIO 3.552 (<5); CREATININE FOR GFR 1.03 MG/DL (0.70-1.30); GLOMERULAR FILTRATION RATE > 60.0 (>49); GLUCOSE, FASTING 116 MG/DL (70-100); HDL CHOLESTEROL 38 MG/DL (>40); LDL CHOLESTEROL 76 MG/DL (<100); NON-HDL-C 97 MG/DL; POTASSIUM SERUM 4.8 MEQ/L (3.5-5.1); SODIUM LEVEL 140 MEQ/L (136-145); TOTAL 25(OH) VITAMIN D 21.5 NG/ML (30.0-100.0); TRIGLYCERIDES LEVEL 106 MG/DL (<150)
[2018-07-24 14:05] LABS: ESTIMATED AVERAGE GLUCOSE 131 MG/DL (60-110); HEMOGLOBIN A1c 6.2 %
[2018-07-24 14:12] LABS: ATYPICAL LYMPH 1 % (0-5); BASOPHILS 2 % (0-4); EOSINOPHILS 2 % (0-5); LYMPHOCYTES 31 % (16-52); MONOCYTES 8 % (0-8); NEUTROPHILS 56 % (35-75); PLATELET ESTIMATE NORMAL (NORMAL)
[2018-07-25 11:36] LABS: ALPHA FETOPROTEIN TUMOR QUANT 1.7 NG/ML (<8.1)
== END ==
LOC: M SFHCADAM 11:20
DX: K74.60 Unspecified cirrhosis of liver (principal); E11.9 Type 2 diabetes mellitus without complications; I10 Essential (primary) hypertension; E55.9 Vitamin D deficiency, unspecified
CPT/HCPCS: 84443

== ENCOUNTER → 2018-09-27 | Outpatient (CLI) | payer MEDICARE ==
[~2018-09-27] MED LIST changes: +AMLO10TA5 PO; +ATOR40TA75 PO; +CHERSYP3 PO; +IBUP-1022 PO; +LEVA750T7 PO; +METF-877 PO; +OMEP-221 PO; -OXYB5TA PO; +OXYB5TAB10 PO; +TAMS1CAP17 PO
--- NOTE | 2018-09-28 10:07 | REP ---
MRI CERVICAL SPINE WITHOUT CONTRAST: 09/27/2018. COMPARISON: X-ray, 05/06/2018. TECHNIQUE: Sagittal T1, T2, and STIR images with axial T1 and T2 sequences. Technologist's notes indicate patient in pain, unable to lay still, and he had significant claustrophobia. This degrades the image quality, and I certainly appreciate the patient and technologist's effort to complete the examination. There is some diagnostic information to be obtained. Normal lordosis of the cervical spine is maintained. There is cervical spondylosis with disc space narrowing at C4-5 and C6-7, less at any other level. Loss of disc water signal at all cervical levels. Vertebral body heights are intact. There are some endplate changes at the inferior aspect of C4 vertebral body. No compression deformity or destructive bone lesion evident. The dens intact. Cervical cord shows no intrinsic signal abnormality, syrinx, atrophy, or mass. Craniocervical junction shows ample subarachnoid space. At C2-3, there is no disc bulge or herniation and no spinal or foraminal stenosis. At C3-4, there is no significant disc bulge or herniation. AP canal diameter is 11 mm. Foramina are only marginally adequate on the left, mildly stenotic on the right. At C4-5, posterior osteophytic ridging with associated disc bulge flattens the ventral cord surface and thins the subarachnoid space causing mild cord compression. AP canal diameter 7.9 mm. Bilateral foraminal encroachment due to uncinate and facet spurs. At C5-6, there is also minimal disc bulge. AP canal diameter 9.3 mm. This thins the subarachnoid space but does not cause cord compression. Foramina show adequate left and mildly narrowed right foramen. At C6-7, there is a posterior osteophytic ridge with a broad-based disc bulge. This flattens the ventral thecal sac, which has an AP diameter of 7 mm. There is mild cord compression. There is no myelomalacia. No subarachnoid fluid seen. The foramina are adequate on the right and marginally adequate on the left. At C7-T1, there is no disc bulge or herniation and no spinal or foraminal stenosis. IMPRESSION: 1. Cervical spondylosis from C4-5 through C6-7 with greatest stenosis of the central canal at C6-7, less at C4-5, minimally at C5-6. No compression deformity or destructive lesion. No myelomalacia or syrinx in the cord. 2. Multilevel uncinate and facet spurring along with disc bulges contributing to foraminal encroachment at the levels described above. Electronically Signed by Flavio Tabor MD 09/28/2018 11:32 A
== END ==
LOC: M RAD 11:56
PROVIDERS: ATTEND Physician Assistant
DX: M50.30 Other cervical disc degeneration, unspecified cervical region (principal); M47.892 Other spondylosis, cervical region; M50.20 Other cervical disc displacement, unspecified cervical region

== ENCOUNTER → 2019-03-05 | Outpatient (REF) | payer MEDICARE ==
[~2019-03-05] MED LIST changes: -/AMLO25TA PO; -/PANT40TA OR; -/TAMS4CA OR; +FLOM0.4C39 OR; +NORV2TAB PO; +PROT1TAB2 OR
[2019-03-05 14:42] LABS: HEMATOCRIT 43.4 % (42.0-52.0); HEMOGLOBIN 13.4 g/dl (13.5-17.5); MEAN CORPUSCULAR HEMOGLOBIN 32.4 pg (27.0-33.0); MEAN CORPUSCULAR HGB CONC 30.9 g/dl (32.0-36.5); MEAN CORPUSCULAR VOLUME 104.8 fl (80.0-96.0); PLATELET COUNT, AUTOMATED 276 10^3/uL (150-450); RED BLOOD COUNT 4.14 10^6/uL (4.30-6.10)
[2019-03-05 14:43] LABS: ALBUMIN 3.1 GM/DL (3.2-5.2); ALT/SGPT 19 U/L (12-78); BILIRUBIN,TOTAL 0.3 MG/DL (0.2-1.0); BLOOD UREA NITROGEN 19 MG/DL (7-18); CALCIUM LEVEL 8.8 MG/DL (8.8-10.2); CARBON DIOXIDE LEVEL 30 MEQ/L (21-32); CHLORIDE LEVEL 104 MEQ/L (98-107); CHOLESTEROL LEVEL 104 MG/DL (<200); CREATININE FOR GFR 1.27 MG/DL (0.70-1.30); GLOMERULAR FILTRATION RATE > 60.0 (>49); GLUCOSE, FASTING 92 MG/DL (70-100); HDL CHOLESTEROL 32 MG/DL (>40); LDL CHOLESTEROL 47 MG/DL (<100); NON-HDL-C 72 MG/DL; POTASSIUM SERUM 4.7 MEQ/L (3.5-5.1); SODIUM LEVEL 140 MEQ/L (136-145); TOTAL PROTEIN 6.7 GM/DL (6.4-8.2); TRIGLYCERIDES LEVEL 126 MG/DL (<150)
[2019-03-05 14:51] LABS: TOTAL 25(OH) VITAMIN D 19.9 NG/ML (30.0-100.0)
[2019-03-05 14:53] LABS: HEMOGLOBIN A1c 6.3 %
[2019-03-05 15:12] LABS: MALB URINE SIEMENS 23.5 MG/L; MAU/CREAT RATIO 15.1 MCG/MG (0.0-30.0)
[2019-03-05 16:05] LABS: ATYPICAL LYMPH 8 % (0-5); LYMPHOCYTES 33 % (16-52); MONOCYTES 5 % (0-8); NEUTROPHILS 52 % (35-75)
[2019-03-05 16:06] LABS: PLATELET ESTIMATE NORMAL (NORMAL)
[2019-03-05 16:08] LABS: EOSINOPHILS 2 % (0-5)
== END ==
LOC: M SFHCADAM 10:43
PROVIDERS: ATTEND Physician Assistant Medical
DX: E11.9 Type 2 diabetes mellitus without complications (principal); K74.60 Unspecified cirrhosis of liver; E55.9 Vitamin D deficiency, unspecified
CPT/HCPCS: 80053; 80061; 82043; 82105; 82306; 83036; 85025; 90670; 93005; G0009; G0463

== ENCOUNTER → 2019-03-25 | Outpatient (CLI) | payer MEDICARE ==
--- NOTE | 2019-03-25 11:28 | REP ---
RIGHT UPPER QUADRANT SONOGRAPHY: HISTORY: Hepatic cirrhosis. Comparison MRI study September 14, 2016. FINDINGS: Right upper quadrant sonography demonstrates normal sized thin-walled gallbladder containing immobile shadowing echogenic calculi in the fundal region. The gallbladder wall is borderline measuring at 3.5 mm. Common bile duct is normal measuring 3.7 mm. Liver parenchyma is somewhat heterogeneous but no focal liver mass lesion is seen. Limited views of the pancreas show no abnormality. There is a cyst in the right mid kidney measuring 2.6 x 2.5 x 2.4 cm. Right renal dimensions are 10.0 x 5.5 x 5.4 cm. IMPRESSION: No focal liver lesion. Cholelithiasis. 2.6 cm right renal cyst. Otherwise negative. Electronically Signed by Taras Urias MD 03/25/2019 08:58 P
== END ==
LOC: M RAD 07:16
PROVIDERS: ATTEND Physician Assistant Medical
DX: K74.69 Other cirrhosis of liver (principal)

== ENCOUNTER → 2019-10-15 | Outpatient (REF) | payer MEDICARE ==
[2019-10-15 15:45] LABS: BASO # 0.1 10^3/uL (0.0-0.2); BASO % 0.4 % (0.0-1.0); EOS # 0.3 10^3/uL (0.0-0.5); EOS % 2.3 % (0.0-3.0); HEMATOCRIT 43.2 % (42.0-52.0); HEMOGLOBIN 13.7 g/dl (13.5-17.5); LYMPH # 4.3 10^3/uL (1.5-5.0); MEAN CORPUSCULAR HEMOGLOBIN 31.6 pg (27.0-33.0); MEAN CORPUSCULAR HGB CONC 31.7 g/dl (32.0-36.5); MEAN CORPUSCULAR VOLUME 99.8 fl (80.0-96.0); MONO # 0.8 10^3/uL (0.0-0.8); MONO % 5.5 % (0.0-5.0); NEUTROPHILS # 8.5 10^3/uL (1.5-8.5); NEUTROPHILS % 60.4 % (36.0-66.0); PLATELET COUNT, AUTOMATED 314 10^3/uL (150-450); RED BLOOD COUNT 4.33 10^6/uL (4.30-6.10)
[2019-10-15 15:54] LABS: ALBUMIN 3.4 GM/DL (3.2-5.2); ALT/SGPT 17 U/L (12-78); BILIRUBIN,TOTAL 0.3 MG/DL (0.2-1.0); BLOOD UREA NITROGEN 9 MG/DL (7-18); CALCIUM LEVEL 8.8 MG/DL (8.8-10.2); CARBON DIOXIDE LEVEL 32 MEQ/L (21-32); CHLORIDE LEVEL 99 MEQ/L (98-107); CHOLESTEROL LEVEL 117 MG/DL (<200); CHOLESTEROL RISK RATIO 3.545 (<5); GLOMERULAR FILTRATION RATE > 60.0 (>49); GLUCOSE, FASTING 101 MG/DL (70-100); HDL CHOLESTEROL 33 MG/DL (>40); LDL CHOLESTEROL 62 MG/DL (<100); NON-HDL-C 84 MG/DL; POTASSIUM SERUM 4.7 MEQ/L (3.5-5.1); SODIUM LEVEL 135 MEQ/L (136-145); THYROID STIMULATING HORMONE 0.492 uIU/ML (0.358-3.740); TOTAL 25(OH) VITAMIN D 38.4 NG/ML (30.0-100.0); TOTAL PROTEIN 7.1 GM/DL (6.4-8.2); TRIGLYCERIDES LEVEL 109 MG/DL (<150)
[2019-10-15 16:11] LABS: HEMOGLOBIN A1c 6.6 %
== END ==
LOC: M SFHCADAM 12:57
PROVIDERS: ATTEND Family Medicine
DX: K74.60 Unspecified cirrhosis of liver (principal); E11.9 Type 2 diabetes mellitus without complications; I10 Essential (primary) hypertension; E55.9 Vitamin D deficiency, unspecified; Z23 Encounter for immunization
CPT/HCPCS: 80053; 80061; 82105; 82306; 83036; 84443; 85025; G0463

== ENCOUNTER → 2020-02-12 | Outpatient (REF) | payer MEDICARE ==
[~2020-02-12] MED LIST changes: -AMLO10TA5 PO; +AMLO1TAB25 PO; -ASPI81TA85 PO; +ASPI81TA86 PO; +OXYC-1 PO; +SOMA250T PO
[2020-02-12 17:23] LABS: INR 0.98; PROTHROMBIN TIME 12.7 SECONDS (11.8-14.0)
[2020-02-12 17:40] LABS: ALBUMIN 3.1 GM/DL (3.2-5.2); BILIRUBIN,DIRECT 0.2 MG/DL (0.0-0.2); BILIRUBIN,TOTAL 0.4 MG/DL (0.2-1.0); TOTAL PROTEIN 7.1 GM/DL (6.4-8.2)
== END ==
LOC: M LABDRWAD 16:54
PROVIDERS: ATTEND Internal Medicine Gastroenterology
DX: K74.60 Unspecified cirrhosis of liver (principal)

== ENCOUNTER → 2020-02-22 | Outpatient (REF) | payer MEDICARE ==
[2020-02-22 18:04] LABS: ALBUMIN 3.1 GM/DL (3.2-5.2); ALT/SGPT 16 U/L (12-78); BILIRUBIN,TOTAL 0.3 MG/DL (0.2-1.0); BLOOD UREA NITROGEN 17 MG/DL (7-18); CALCIUM LEVEL 8.7 MG/DL (8.8-10.2); CARBON DIOXIDE LEVEL 27 MEQ/L (21-32); CHLORIDE LEVEL 106 MEQ/L (98-107); CREATININE FOR GFR 1.03 MG/DL (0.70-1.30); GLOMERULAR FILTRATION RATE > 60.0 (>49); GLUCOSE, FASTING 98 MG/DL (70-100); LDH LACTATE DEHYDROGENASE 221 U/L (87-241); POTASSIUM SERUM 4.7 MEQ/L (3.5-5.1); SODIUM LEVEL 140 MEQ/L (136-145); TOTAL PROTEIN 7.1 GM/DL (6.4-8.2)
[2020-02-22 18:50] LABS: BASO # 0.1 10^3/uL (0.0-0.2); BASO % 0.5 % (0.0-1.0); EOS # 0.4 10^3/uL (0.0-0.5); EOS % 2.2 % (0.0-3.0); HEMATOCRIT 39.4 % (42.0-52.0); LYMPH # 5.5 10^3/uL (1.5-5.0); LYMPH % 31.3 % (24.0-44.0); MEAN CORPUSCULAR HEMOGLOBIN 33.7 pg (27.0-33.0); MEAN CORPUSCULAR VOLUME 102.1 fl (80.0-96.0); MONO # 1.3 10^3/uL (0.0-0.8); MONO % 7.4 % (0.0-5.0); NEUTROPHILS # 10.3 10^3/uL (1.5-8.5); NEUTROPHILS % 58.1 % (36.0-66.0); PLATELET COUNT, AUTOMATED 342 10^3/uL (150-450); RED BLOOD COUNT 3.86 10^6/uL (4.30-6.10)
[2020-02-22 19:05] LABS: WHITE BLOOD COUNT 17.6 10^3/uL (4.0-10.0)
== END ==
LOC: M LABDRWAD 16:36
PROVIDERS: ATTEND Internal Medicine Medical Oncology
DX: D72.829 Elevated white blood cell count, unspecified (principal)

== ENCOUNTER → 2020-11-03 | Outpatient (CLI) | payer MEDICARE ==
[~2020-11-03] MED LIST changes: +ACET1TAB55 PO; +ASPI81TA26 PO; +BENA20TA8 PO; +CEFD1CAP8 PO; +CEFD300CAP PO; +DOXY-350 PO; +DOXY100C37 PO; +IBUP1TAB6 PO; +IPRA2IN INH; +LEVO500T3 PO; +MUCI600T31 PO; +OXYB15TA14 PO; +PATIENT COMMENT; +PRED5PAK2 PO; +SPIR1CAP INH; +TORS10TA3 PO; +med rec comment
--- NOTE | 2020-11-03 17:02 | REP ---
INDICATION: GANGLION. COMPARISON: None. TECHNIQUE: AP and lateral views. FINDINGS: AP and lateral views of the right wrist demonstrate overall normal mineralization. There is small subcortical cyst in the distal pole of the navicula. Joint spaces are preserved. No erosive changes seen. There is minimal swelling dorsally over the carpus on lateral radiograph. No soft tissue mass is evident. IMPRESSION: No acute bony abnormality noted. Mild soft tissue swelling dorsally over the carpus on lateral film. <Electronically signed by Pj Urias > 11/03/20 [id number]
== END ==
LOC: M SOG 15:17
PROVIDERS: ATTEND Orthopaedic Surgery Sports Medicine
DX: M79.89 Other specified soft tissue disorders (principal)

== ENCOUNTER → 2020-11-15 | Outpatient (CLI) | payer MEDICARE ==
[~2020-11-15] MED LIST changes: -ACET1TAB55 PO; -ASPI81TA26 PO; -BENA20TA8 PO; -CEFD1CAP8 PO; -CEFD300CAP PO; -DOXY-350 PO; -DOXY100C37 PO; -IBUP1TAB6 PO; -IPRA2IN INH; -LEVO500T3 PO; -MUCI600T31 PO; -OXYB15TA14 PO; -PATIENT COMMENT; -PRED5PAK2 PO; -SPIR1CAP INH; -TORS10TA3 PO; -med rec comment
--- NOTE | 2020-11-16 07:39 | REP ---
INDICATION: GANGLION CYST WRIST COMPARISON: None TECHNIQUE: Realtime grayscale and color evaluation using linear high-frequency transducer. FINDINGS: There is a complex cystic lesion anterior and adjacent to the distal radial artery measuring 18 x 7 x 12 mm. Adjacent renal artery and vein are patent and without communication to the above-mentioned cystic lesion. IMPRESSION: Findings consistent with the given history of ganglion cyst. <Electronically signed by Mayo Bradshaw > 11/16/20 [id number]
--- NOTE | 2020-11-16 07:55 | REP ---
INDICATION: GANGLION RT WRIST COMPARISON: None TECHNIQUE: Grayscale and Doppler evaluation using linear high-frequency transducer. FINDINGS: A complex cystic lesion is identified separate from, but adjacent to the distal radial artery and vein in the wrist/distal forearm. Proximal radial artery: 63.8 cm/sec and triphasic. Mid radial artery 82.0 cm/sec and triphasic. Distal radial artery 885 cm/sec and triphasic. IMPRESSION: Normal velocity and wave patterns to the radial artery. Adjacent presumed complex ganglion cyst in the distal forearm/wrist. <Electronically signed by Mayo Bradshaw > 11/16/20 [id number]
== END ==
LOC: M RAD 14:31
PROVIDERS: ATTEND Orthopaedic Surgery Sports Medicine
DX: M67.431 Ganglion, right wrist (principal)

== ENCOUNTER → 2020-12-01 | Outpatient (REF) | payer MEDICARE | LOC: M SFHCADAM 09:47 | PROVIDERS: ATTEND Physician Assistant Medical | DX: K74.60 Unspecified cirrhosis of liver (principal); E11.9 Type 2 diabetes mellitus without complications ==

== ENCOUNTER → 2020-12-02 | Outpatient (REF) | payer MEDICARE ==
[2020-12-02 12:59] LABS: BASO # 0.1 10^3/uL (0.0-0.2); BASO % 0.6 % (0.0-1.0); EOS # 0.4 10^3/uL (0.0-0.5); HEMATOCRIT 40.8 % (42.0-52.0); HEMOGLOBIN 12.8 g/dl (13.5-17.5); LYMPH # 4.1 10^3/uL (1.5-5.0); LYMPH % 29.4 % (24.0-44.0); MEAN CORPUSCULAR HEMOGLOBIN 32.1 pg (27.0-33.0); MEAN CORPUSCULAR HGB CONC 31.4 g/dl (32.0-36.5); MEAN CORPUSCULAR VOLUME 102.3 fl (80.0-96.0); MONO # 1.1 10^3/uL (0.0-0.8); NEUTROPHILS # 8.3 10^3/uL (1.5-8.5); NEUTROPHILS % 58.7 % (36.0-66.0); PLATELET COUNT, AUTOMATED 305 10^3/uL (150-450); RED BLOOD COUNT 3.99 10^6/uL (4.30-6.10); WHITE BLOOD COUNT 14.1 10^3/uL (4.0-10.0)
[2020-12-02 13:34] LABS: ALT/SGPT 14 U/L (12-78); BILIRUBIN,TOTAL 0.3 MG/DL (0.2-1.0); BLOOD UREA NITROGEN 15 MG/DL (7-18); CALCIUM LEVEL 8.8 MG/DL (8.8-10.2); CARBON DIOXIDE LEVEL 32 MEQ/L (21-32); CHLORIDE LEVEL 104 MEQ/L (98-107); CHOLESTEROL LEVEL 109 MG/DL (<200); CHOLESTEROL RISK RATIO 3.114 (<5); CREATININE FOR GFR 1.18 MG/DL (0.70-1.30); GLOMERULAR FILTRATION RATE > 60.0 (>49); GLUCOSE, FASTING 154 MG/DL (70-100); HDL CHOLESTEROL 35 MG/DL (>40); LDL CHOLESTEROL 52 MG/DL (<100); NON-HDL-C 74 MG/DL; POTASSIUM SERUM 4.6 MEQ/L (3.5-5.1); SODIUM LEVEL 140 MEQ/L (136-145); TOTAL PROTEIN 6.7 GM/DL (6.4-8.2); TRIGLYCERIDES LEVEL 111 MG/DL (<150)
== END ==
LOC: M SFHCADAM 07:51
PROVIDERS: ATTEND Physician Assistant Medical
DX: K74.60 Unspecified cirrhosis of liver (principal); E11.9 Type 2 diabetes mellitus without complications

== ENCOUNTER 2020-12-16 14:21 | Inpatient (IN) | payer MEDICARE ==
[~2020-12-16] VITALS: Ht 180.3 cm; Wt 81.1 kg
[2020-12-16] MEDS ORDERED: COMBIVENT RESPIMAT 100-20MCG INHALER 4GM INH PRN (15:25)
[2020-12-16 15:52] LABS: VENOUS BASE EXCESS 1.7 (-2.0-2.0); VENOUS HCO3 29.3 MEQ/L (23.0-27.0); VENOUS O2 SATURATION 50.6 % (60.0-80.0); VENOUS PARTIAL PRESSURE CO2 58.8 mmHg (38.0-50.0); VENOUS PARTIAL PRESSURE O2 25.5 mmHg (30.0-50.0); VENOUS PH 7.315 UNITS (7.330-7.430); VENOUS STANDARD HCO3 24.8 MEQ/L; VENOUS TOTAL CO2 31.1 MEQ/L (24.0-28.0)
[2020-12-16 15:57] LABS: BASO # 0.1 10^3/uL (0.0-0.2); BASO % 0.3 % (0.0-1.0); EOS % 0.1 % (0.0-3.0); HEMATOCRIT 43.3 % (42.0-52.0); HEMOGLOBIN 13.4 g/dl (13.5-17.5); LYMPH # 4.2 10^3/uL (1.5-5.0); LYMPH % 12.5 % (24.0-44.0); MEAN CORPUSCULAR HEMOGLOBIN 29.6 pg (27.0-33.0); MEAN CORPUSCULAR HGB CONC 30.9 g/dl (32.0-36.5); MEAN CORPUSCULAR VOLUME 95.8 fl (80.0-96.0); MONO % 8.9 % (2.0-8.0); NEUTROPHILS # 25.5 10^3/uL (1.5-8.5); NEUTROPHILS % 76.3 % (36.0-66.0); PLATELET COUNT, AUTOMATED 306 10^3/uL (150-450); RED BLOOD COUNT 4.52 10^6/uL (4.30-6.10)
--- NOTE | 2020-12-16 16:23 | REP ---
INDICATION: DYSPNEA/COUGH. COMPARISON: Comparison chest x-ray October 28, 2017. TECHNIQUE: Portable upright AP chest radiograph. FINDINGS: The lungs are symmetrically aerated and free of focal infiltrate. Interstitial markings are slightly prominent unchanged. There are old healed rib fractures on the left. The heart is not enlarged. Pulmonary vasculature is not increased. Monitoring electrodes are seen. A fusion plate is visible in the lower cervical spine.. IMPRESSION: No active disease. <Electronically signed by Pj Urias > 12/16/20 [id number]
[2020-12-16 16:31] LABS: ALBUMIN 3.2 GM/DL (3.2-5.2); ALT/SGPT 17 U/L (12-78); BILIRUBIN,DIRECT 0.2 MG/DL (0.0-0.2); BILIRUBIN,TOTAL 0.5 MG/DL (0.2-1.0); NT-PRO BNP 392 PG/ML (<125); THYROID STIMULATING HORMONE 0.224 uIU/ML (0.358-3.740); TOTAL PROTEIN 7.6 GM/DL (6.4-8.2)
[2020-12-16] MEDS ORDERED: predniSONE 20 MG TAB PO ONE (16:35)
[2020-12-16 16:48] LABS: WHITE BLOOD COUNT 33.4 10^3/uL (4.0-10.0)
[2020-12-16] MEDS ORDERED: ISOVUE-370 76% 100ML VIAL As Ordered ONE (17:37)
[2020-12-16 18:12] LABS: CPK CREATINE PHOSPHOKINASE 361 U/L (39-308); MB/CK RELATIVE INDEX 1.39 (< OR =4); TROPONIN I < 0.02 NG/ML (< 0.10)
[2020-12-16] MEDS ORDERED: AZITHROMYCIN INJ 500 MG, VIAL MATE ADAPTER 1 EACH in NS 250 ML IV ONE (18:15)
[2020-12-16] MEDS ORDERED: cefTRIAXone SOD 1 GM in D5W MINI-BAG PLUS 50 ML IV ONE (18:15)
[2020-12-16] MEDS ORDERED: OXYB15TA14 PO (18:52)
--- NOTE | 2020-12-16 19:08 | ECGEPIP ---
[facility] - ED Test Date: 2020-12-16 Pat Name: FLACO BALL Department: Room: - Gender: Male Religious Educator: : 1950 Requested By: Chantelle Lombardi Order Number: [id number] Reading MD: Miguel Angel Diaz Measurements Intervals Eads Rate: 107 P: 67 NE: 136 QRS: 78 QRSD: 94 T: 65 QT: 336 QTc: 448 Interpretive Statements Sinus tachycardia NSTTW ABNORMALITY(S) NO PRIORS FOR COMPARISON Electronically Signed on 12-16-2020 19:07:41 EDT by Miguel Angel Diaz
--- NOTE | 2020-12-16 19:20 | REPVR ---
PROCEDURE INFORMATION: Exam: CTA Chest With Contrast Exam date and time: 12/16/2020 5:42 PM Age: 70 years old Clinical indication: Shortness of breath; Additional info: SOB TECHNIQUE: Imaging protocol: Computed tomographic angiography of the chest with contrast. 3D rendering (Not supervised by radiologist): MIP and/or 3D reconstructed images were created by the technologist. Radiation optimization: All CT scans at this facility use at least one of these dose optimization techniques: automated exposure control; mA and/or kV adjustment per patient size (includes targeted exams where dose is matched to clinical indication); or iterative reconstruction. Contrast material: ISOVUE 370; Contrast volume: 100 ml; Contrast route: INTRAVENOUS (IV); COMPARISON: 1. CT ANGIO CHEST 10/28/2017 12:01 PM 2. [place] Chest, 2 view PA, Lat 10/28/2017 10:06:42 AM 3. [place] PORTABLE CHEST X-RAY 12/16/2020 4:07:48 PM FINDINGS: Pulmonary arteries: Normal. No pulmonary emboli. Aorta: There is atherosclerotic calcification of the thoracic aorta. Mildly ectatic aorta with no aneurysmal dilatation. No dissection. Lungs: There is peripheral mixed interstitial and airspace opacity in the right lower lobe, increased since 10/28/2017. This includes a somewhat nodular mostly more dense area which is increased, measuring 1.8 cm. This has tiny foci of air within it which are rounded in appearance. It is difficult to determine whether there are branching patterns of air bronchograms given that this region is not very large in size. There are multiple pulmonary nodules bilaterally, more pronounced in the right upper lobe posteriorly with peribronchovascular and peripheral configuration measuring up to 7 mm, with less extensive similar smaller nodules in the right middle lobe, lingula and left lower lobe as well as the left upper lobe. Most of these nodules have soft tissue density, although a few have ground-glass attenuation. Overall, findings suggest endobronchial spread of infection or atypical infection. Pleural spaces: Unremarkable. No pneumothorax. No pleural effusion. Heart: Unremarkable. No cardiomegaly. No pericardial effusion. Lymph nodes: Small mediastinal nodes, with AP window lymph node at the upper limits of normal at 9 mm. Small left hilar nodes. Right hilar lymphadenopathy, with the largest node node with short axis dimension of 2.3 cm. Gallbladder and bile ducts: Marked gallbladder distension, partially included. Common bile duct is only partially included, measuring up to 10 mm. Pancreas: Mild fatty atrophy of the pancreas. Kidneys and ureters: Nonobstructing calculus in the upper pole right kidney measuring 9 mm. Bones/joints: No acute osseous abnormality. Fixation hardware in the lower cervical spine partially included. Old healed left rib fractures. Soft tissues: Unremarkable. IMPRESSION: 1. Increased peripheral mixed interstitial and airspace opacity in the right lower lobe with somewhat nodular mostly more dense opacity measuring 1.8 cm which is larger and better visualized and of uncertain etiology. Findings could be related to pulmonary fibrosis, although pneumonia is not excluded. Parenchymal mass lesion could potentially be obscured but is considered less likely given the tiny rounded foci of air within this. Recommend follow-up to resolution. 2. Numerous peribronchovascular nodules, most pronounced in the right upper lobe where there are larger more extensive nodules measuring up to 7 mm, but seen in all lobes. These findings suggest endobronchial spread of infection or atypical infection such as mycobacterial infection. 3. Marked gallbladder distention. Common bile duct only partially included, measuring up to 10 mm. 4. Right hilar lymphadenopathy with the largest node measuring up to 2.3 cm in short axis dimension. Recommend attention to this on follow-up imaging. Recommend CT Chest at 3-6 months. Subsequent management based on the most suspicious nodule(s) (Reference: Sandro). Also recommend correlation with patient's clinical presentation and history. References: Sandro Aguirre, et al. Guidelines for Management of Incidental Pulmonary Nodules Detected on CT Images: From the Fleischner Society 2017. Radiology. 2017;284(1):228-243. Electronically signed by: Rachel Franco On 12/16/2020 19:19:40 PM
[2020-12-16] MEDS ORDERED: ASPI81TA26 PO (19:33)
[2020-12-16] MEDS ORDERED: BENA20TA8 PO (19:33)
[2020-12-16] MEDS ORDERED: med rec comment (19:34)
[2020-12-16] MEDS: SODIUM CHLORIDE 0.9% 1000ML IV STA ×2 (19:47→19:57)
[2020-12-16 20:10] LABS: FREE T4 1.15 NG/DL (0.76-1.46)
--- NOTE | 2020-12-16 20:25 | HPEPDOC ---
[facility] Medical History & Physical Date of Admission December 16, 2020 Date of Service: December 16, 2020 Attending Physician: RYANN ALBERTO MD History and Physical CHIEF COMPLAINT: shortness of breath, cough HISTORY OF PRESENT ILLNESS: Amando Ovalle is a 70 year old male who presented to the ED today after 3 days of worsening cough and shortness of breath. He states his symptoms came on gradually over the course of 1 day on Saturday. He does not recall what he was doing when his symptoms began. He notes a productive cough with yellow sputum, no hemoptysis. He also notes some shortness of breath which is worse when he lies down. He reports chest pain which is present around his rib cage only when coughing. He denies any radiation of the pain. He describes the pain as sharp. He denies prior episodes of symptoms like this. No fevers, chills, weight loss. Patient is a poor history regarding his medical history and much of this is obtained from chart review. PAST MEDICAL HISTORY: CLL Type 2 diabetes Hypertension Hyperlipidemia Liver cirrhosis with chronic hepatitis C Little's esophagus vitamin D deficiency Low back pain due to discopathy BPH PAST SURGICAL HISTORY: Lumbar fusion Cervical fusion Umbilical hernia repair as a child EGD and colonoscopies SOCIAL HISTORY: Current smoker since age 19 up to 2 packs per day, currently 1 ppd and trying to cut back. Denies alcohol use. Denies illicit substance use Lives at home with a roommate On disability for back problems. FAMILY HISTORY: A sister of unknown unknown type of cancer in her 30s. Another sister had leukemia in childhood. ALLERGIES: Please see below. REVIEW OF SYSTEMS: 10-point review of systems negative except as listed in HPI HOME MEDICATIONS: Please see below. PHYSICAL EXAMINATION: VITAL SIGNS: See below GENERAL: Alert, comfortable, in no acute distress HEENT: Normocephalic, atraumatic, sclera anicteric, moist mucous membranes NECK: Supple, trachea midline, no lymphadenopathy CARDIOVASCULAR: Regular rate and rhythm, normal S1 and S2. RESPIRATORY: Clear to auscultation bilaterally with equal air entry bilaterally. No wheezing, rhonchi, or rales. ABDOMEN: Soft, nontender, nondistended, bowel sounds present, no masses or hepatosplenomegaly appreciated EXTREMITIES: No cyanosis or edema. Pulses 2+/4 in bilateral upper and lower extremities SKIN: [place], warm, dry NEUROLOGIC: Alert and oriented x3 to person, place and time. No focal deficits appreciated PSYCHIATRIC: Mood and affect appropriate LABORATORY DATA: See below. IMAGING: - CXR No active disease. - CTA Chest 1. Increased peripheral mixed interstitial and airspace opacity in the right lower lobe with somewhat nodular mostly more dense opacity measuring 1.8 cm which is larger and better visualized and of uncertain etiology. Findings could be related to pulmonary fibrosis, although pneumonia is not excluded. Parenchymal mass lesion could potentially be obscured but is considered less likely given the tiny rounded foci of air within this. Recommend follow-up to resolution. 2. Numerous peribronchovascular nodules, most pronounced in the right upper lobe where there are larger more extensive nodules measuring up to 7 mm, but seen in all lobes. These findings suggest endobronchial spread of infection or atypical infection such as mycobacterial infection. 3. Marked gallbladder distention. Common bile duct only partially included, measuring up to 10 mm. 4. Right hilar lymphadenopathy with the largest node measuring up to 2.3 cm in short axis dimension. Recommend attention to this on follow-up imaging. MICROBIOLOGY: Please see below. ASSESSMENT: 70 year old male with PMHx of CLL, type 2 diabetes, hypertension, hyperlipidemia, liver cirrhosis with chronic hepatitis C, Little's esophagus, vitamin D deficiency, low back pain due to discopathy. and BPH who presented with 3 days of worsening shortness of breath and coughing found to be tachycardic with WBC above baseline and CT suggestive of pneumonia PLAN: # Sepsis 2/2 pneumonia - SIRS criteria met with tachycardia, elevated WBC. qsofa score 0, low risk - Lactic acid level below 2. Procalcitonin pending. - IV fluids 30ml/kg bolus. May require further fluid bolus if he continues to be tachycardic. - IV antibiotics ceftriaxone and doxycycline for community acquired pneumonia - Sputum culture ordered. Blood cultures x2 pending. - Monitor on telemetry - oxygen therapy titrate to O2 sat >92%, incentive spirometer, acapella # CLL - may contribute to his elevated WBC, although his baseline appears to be 14-20 - follows with oncology, no current treatment # Type 2 diabetes - consistent carb diet, SSI ACHS, hypoglycemic protocol - hold home meds # Hypertension - hold home meds to avoid hypotension # Hyperlipidemia - continue statin and aspirin # Little's esophagus - continue PPI # Low back pain due to discopathy - continue home oxycodone prn # BPH - continue home flomax and Oxybutynin # Liver cirrhosis with chronic hepatitis C DVT prophylaxis: sc heparin Disposition: admitted to PCU pending clinical improvement Vital Signs Vital Signs Date Time Temp Pulse Resp B/P (MAP) Pulse Ox O2 Delivery O2 Flow Rate FiO2 12/16/20 19:30 125 123/58 (79) 93 Nasal Cannula 3.0 12/16/20 14:22 97.9 14 Laboratory Data Labs 24H Laboratory Tests 2 12/16/20 15:08: Immature Granulocyte % (Auto) 1.9, Neutrophils (%) (Auto) 76.3H, Lymphocytes (%) (Auto) 12.5L, Monocytes (%) (Auto) 8.9H, Eosinophils (%) (Auto) 0.1, Basophils (%) (Auto) 0.3, Neutrophils # (Auto) 25.5H, Lymphocytes # (Auto) 4.2, Monocytes # (Auto) 3.0H, Eosinophils # (Auto) 0.0, Basophils # (Auto) 0.1, Nucleated Red Blood Cells % (auto) 0.0, Lactic Acid Level 1.8, Total Bilirubin 0.5, Direct Bilirubin 0.2, Aspartate Amino Transf (AST/SGOT) 24, Alanine Aminotransferase (ALT/SGPT) 17, Alkaline Phosphatase 116, Total Creatine Kinase 361H, Creatine Kinase MB 5.0H, Creatine Kinase MB Relative Index 1.39, Troponin I < 0.02, SZ-Kbh-H-Type Natriuretic Peptide 392H, Total Protein 7.6, Albumin 3.2, Albumin/Globulin Ratio 0.7, Thyroid Stimulating Hormone (TSH) 0.224L, Free Thyroxine 1.15 12/16/20 15:34: Blood Gas Bicarbonate Standard 24.8, Venous Blood pH 7.315L, Venous Blood Partial Pressure CO2 58.8H, Venous Blood Partial Pressure O2 25.5L, Venous Blood Total Carbon Dioxide 31.1H, Venous Blood HCO3 29.3H, Venous Blood Oxygen Satu ration 50.6L, Venous Blood Base Excess 1.7 12/16/20 15:43: POC Glucose (Misc Panel) 102, POC Sodium (Misc Panel) 133L, POC Potassium (Misc Panel) 4.4, POC Chloride (Misc Panel) 94L, POC Total CO2 (Misc Panel) 30.0H, POC Blood Urea Nitrogen (Misc Panel 16, POC Ionized Calcium (Misc Panel) 4.6, POC Creatinine (Misc Panel) 1.4H, POC Hematocrit (Misc Panel) 49.0 CBC/BMP Laboratory Tests 12/16/20 15:08 Microbiology Microbiology 12/16/20 Blood Culture, Received Pending 12/16/20 Respiratory Virus Panel (PCR) (TASIA) - Final, Complete 12/16/20 Blood Culture, Received Pending Home Medications Scheduled Amlodipine Besylate (Amlodipine Besylate) 10 Mg Tab, 10 MG PO DAILY Aspirin (Aspirin EC) 81 Mg Tablet.dr, 81 MG PO DAILY Atorvastatin Calcium (Atorvastatin Calcium) 40 Mg Tab, 40 MG PO DAILY Benazepril HCl (Benazepril HCl) 20 Mg Tablet, 20 MG PO DAILY Cefdinir (Cefdinir) 300 Mg Capsule, 300 MG PO BID Doxycycline Monohydrate (Doxycycline) 100 Mg Capsule, 1 CAP PO BID Guaifenesin (Mucinex) 600 Mg Tab.er.12h, 600 MG PO BID Metformin HCl (Metformin HCl) 1,000 Mg Tab, 1,000 MG PO BID Omeprazole (Omeprazole) 40 Mg Cap, 40 MG PO DAILY Oxybutynin Chloride (Oxybutynin Chloride ER) 15 Mg Tab.er.24, 15 MG PO DAILY Tamsulosin Hcl (Tamsulosin HCl) 0.4 Mg Cap, 0.4 MG PO DAILY Scheduled PRN Albuterol Sulfate (Ventolin Hfa) 108 Mcg/Act Aer, 2 PUFF INH Q4-6HP PRN for wheezing Ibuprofen (Ibuprofen) 600 Mg Tab, 600 MG PO Q6H PRN for PAIN Oxycodone Hcl (Oxycodone HCl) 15 Mg Tablet, 15 MG PO TIDP PRN for PAIN Miscellaneous Medications [med rec comment] unable to speak with patient Allergies Coded Allergies: No Known Allergies (Unverified , 11/28/18) GME ATTESTATION GME ATTESTATION My faculty preceptor for this patient encounter was physically present during the encounter and was fully available. All aspects of the patient interview, examination, medical decision making process, and medical care plan development were reviewed and approved by the faculty preceptor. The faculty preceptor is aware and concurs with the plan as stated in the body of this note and will attest to such by his/her cosignature. ATTENDING NOTE I, A Yousef, have independently examined this patient and performed my own physical exam, as well as reviewed the documentation and edited where necessary. I have discussed in detail with the resident / student the findings and plan of treatment as documented by the resident / student and edited their note. I agree with their findings and treatment plan and have edited their documentation. I will continue to follow the patient during this hospital stay. ANDREW PEREZ D.O. December 16, 2020 20:25 RYANN ALBERTO MD December 19, 2020 02:24
[2020-12-16] MEDS: IPRATROPIUM 0.5MG/ALBUTEROL 2.5MG INH SOL UD 3ML (DUONEB) INH SCH (21:06)
[2020-12-16 22:40] VITALS: BP 145/70
[2020-12-16 23:00] VITALS: O2SAT 90
[2020-12-16] MEDS ORDERED: oxyCODONE 5MG TAB PO PRN (23:25)
[2020-12-17] VITALS (11 sets, daily range): BP systolic 107–137; BP diastolic 58–70; O2SAT 91–97
[2020-12-17] MEDS ORDERED: DEXTROSE 50% 50 ML SYRINGE IV PRN
[2020-12-17] MEDS ORDERED: GLUCOSE 4GM CHEW TABLET PO PRN
[2020-12-17] MEDS ORDERED: GLUCAGON INJ 1MG VIAL SC PRN
[2020-12-17] MEDS: IPRATROPIUM 0.5MG/ALBUTEROL 2.5MG INH SOL UD 3ML (DUONEB) INH SCH ×7 (00:02→23:54)
[2020-12-17] MEDS: HumaLOG INSULIN (NovoLOG) PER UNIT SC SCH ×5 (01:45→20:34)
[2020-12-17 05:14] LABS: BLOOD UREA NITROGEN 16 MG/DL (7-18); CALCIUM LEVEL 8.8 MG/DL (8.8-10.2); CARBON DIOXIDE LEVEL 31 MEQ/L (21-32); CHLORIDE LEVEL 105 MEQ/L (98-107); GLOMERULAR FILTRATION RATE > 60.0 (>49); GLUCOSE, FASTING 165 MG/DL (70-100); MAGNESIUM LEVEL 1.9 MG/DL (1.8-2.4); POTASSIUM SERUM 4.3 MEQ/L (3.5-5.1); SODIUM LEVEL 138 MEQ/L (136-145)
[2020-12-17] MEDS: HEPARIN SOD (PORCINE) 5000UNITS/ML 1ML VIAL/SYRINGE SC SCH ×3 (06:34→22:01)
[2020-12-17] MEDS: OMEPRAZOLE 20 MG CAP PO SCH (08:46)
[2020-12-17] MEDS: ASPIRIN 81MG ENTERIC TABLET PO SCH (08:46)
[2020-12-17] MEDS: ATORVASTATIN 20 MG TAB PO SCH (08:46)
[2020-12-17] MEDS: oxyBUTYnin *DITROPAN XL* 5 MG TABCR PO SCH (08:46)
[2020-12-17] MEDS: TAMSULOSIN 0.4 MG CAP PO SCH (08:46)
[2020-12-17] MEDS: DOXYCYCLINE HYCLATE 100 MG in D5W MINI-BAG PLUS 100 ML IV SCH ×2 (08:46→20:34)
[2020-12-17] MEDS ORDERED: PNEUMOCOCCAL VACCINE 0.5ML SYRINGE (PNEUMOVAX 23) IM ONE (09:00)
[2020-12-17] MEDS ORDERED: FLUBLOK(EGG FREE)(QUAD)INFLUENZA VACC 0.5ML SYRINGE 18YRS & OLDER IM ONE (09:00)
[2020-12-17] MEDS: guaiFENesin ER 600 MG TAB PO SCH ×2 (12:10→20:34)
[2020-12-17] MEDS: ACETAMINOPHEN TAB 650MG DOSE (2X325MG) PO PRN (12:16)
--- NOTE | 2020-12-17 13:55 | IPNPDOC ---
Subjective Date Seen The patient was seen on 12/17/20. Subjective Chief Complaint/HPI Mr. Ovalle is a 70 year old male with CLL, DM type 2, and HTN who presents with worsening cough and dyspnea and found to have PNA. This morning, he still has dyspnea and productive cough. Will continue with current therapy Objective Physical Examination General Exam: Positive: Alert, Cooperative Eye Exam: Negative: Sclera icteric ENT Exam: Positive: Atraumatic Neck Exam: Positive: Supple Chest Exam: Positive: Clear to auscultation Heart Exam: Positive: Rate Normal, Regular Rhythm Abdomen Exam: Positive: Normal bowel sounds, Soft; Negative: Tenderness Male Exam: Negative: Edema Neuro Exam: Positive: Normal Speech Psych Exam: Positive: Mental status NL, Mood NL Assessment /Plan Assessment Mr. Ovalle is a 70 year old male with CLL, DM type 2, and HTN who presents with worsening cough and dyspnea and found to have PNA. Will continue ceftriaxone and Doxycycline. Otherwise, will continue to monitor CBC due to his CLL. Plan/VTE VTE Prophylaxis Ordered?: Yes Plan 1. Sepsis secondary to pneumonia -SIRs criteria 2/4 (tachycardia and leukocytosis above baseline) -Lactic acid level <2 -Received IVF 30mg/KG -Continue antibiotics 2. CAP -Continue doxycycline and ceftriaxone day 2 -Requiring 4L of oxygen 3. CLL -Baseline WBC around 17 -Hgb around baseline, no thrombocytopenia -Follow with oncology outpatient 4. Diabetes mellitus type 2 -ISS and carbohydrate consistent diet 5. Hypertension -Holding amlodipine and benazepril due to sepsis 6. Hyperlipidemia -Continue statin 7. Little's esophagus -Continue PPI 8. Chronic low back pain -Continue PRN oxycodone 9. BPH -Continue tamsulosin 10. Liver cirrhosis with chronic hepatitis C -Be cautious with acetaminophen 11. DVT ppx -Heparin Disposition: Pending clinical improvement. Wean oxygen as tolerated VS, I&O, 24H, Fishbone Vital Signs/I&O Vital Signs Date Time Temp Pulse Resp B/P (MAP) Pulse Ox O2 Delivery O2 Flow Rate FiO2 12/17/20 12:00 97.3 102 21 129/65 (86) Nasal Cannula 4.0 12/17/20 08:00 98 I&O- Last 24 Hours up to 6 AM 12/17/20 06:00 Intake Total 2945 ml Output Total 1200 ml Balance 1745 ml Laboratory Data 24H LABS Laboratory Tests 2 12/16/20 15:08: Immature Granulocyte % (Auto) 1.9, Neutrophils (%) (Auto) 76.3H, Lymphocytes (%) (Auto) 12.5L, Monocytes (%) (Auto) 8.9H, Eosinophils (%) (Auto) 0.1, Basophils (%) (Auto) 0.3, Neutrophils # (Auto) 25.5H, Lymphocytes # (Auto) 4.2, Monocytes # (Auto) 3.0H, Eosinophils # (Auto) 0.0, Basophils # (Auto) 0.1, Nucleated Red Blood Cells % (auto) 0.0, Lactic Acid Level 1.8, Total Bilirubin 0.5, Direct Dave irubin 0.2, Aspartate Amino Transf (AST/SGOT) 24, Alanine Aminotransferase (ALT/SGPT) 17, Alkaline Phosphatase 116, Total Creatine Kinase 361H, Creatine Kinase MB 5.0H, Creatine Kinase MB Relative Index 1.39, Troponin I < 0.02, PQ-Alo-H-Type Natriuretic Peptide 392H, Total Protein 7.6, Albumin 3.2, Albumin/Globulin Ratio 0.7, Thyroid Stimulating Hormone (TSH) 0.224L, Free Thyroxine 1.15 12/16/20 15:34: Blood Gas Bicarbonate Standard 24.8, Venous Blood pH 7.315L, Venous Blood Partial Pressure CO2 58.8H, Venous Blood Partial Pressure O2 25.5L, Venous Blood Total Carbon Dioxide 31.1H, Venous Blood HCO3 29.3H, Venous Blood Oxygen Saturation 50.6L, Venous Blood Base Excess 1.7 12/16/20 15:43: POC Glucose (Misc Panel) 102, POC Sodium (Misc Panel) 133L, POC Potassium (Misc Panel) 4.4, POC Chloride (Misc Panel) 94L, POC Total CO2 (Misc Panel) 30.0H, POC Blood Urea Nitrogen (Misc Panel 16, POC Ionized Calcium (Misc Panel) 4.6, POC Creatinine (Misc Panel) 1.4H, POC Hematocrit (Misc Panel) 49.0 12/17/20 01:32: Bedside Glucose (Misc Panel) 183H 12/17/20 04:34: Anion Gap 2L, Glomerular Filtration Rate > 60.0, Calcium Level 8.8, Magnesium Level 1.9, Procalcitonin 0.90 12/17/20 12:18: Bedside Glucose (Misc Panel) 106 CBC/BMP Laboratory Tests 12/16/20 15:08 12/17/20 04:34 Microbiology Microbiology 12/17/20 Gram Stain, Received Pending 12/17/20 Sputum Culture, Received Pending 12/16/20 Blood Culture, Received Pending 12/16/20 Respiratory Virus Panel (PCR) (TASIA) - Final, Complete 12/16/20 Blood Culture, Received Pending ANNIKA ALVAREZ DO December 17, 2020 13:55
[2020-12-17] MEDS ORDERED: cefTRIAXone SOD 1 GM in D5W MINI-BAG PLUS 50 ML IV SCH (18:00)
[2020-12-18] VITALS: BP 138/68
[2020-12-18 04:00] VITALS: BP 133/67
[2020-12-18] MEDS: IPRATROPIUM 0.5MG/ALBUTEROL 2.5MG INH SOL UD 3ML (DUONEB) INH SCH ×3 (04:21→11:46)
[2020-12-18] MEDS: ACETAMINOPHEN TAB 650MG DOSE (2X325MG) PO PRN (04:25)
[2020-12-18 04:34] LABS: MEAN CORPUSCULAR HEMOGLOBIN 29.3 pg (27.0-33.0); MEAN CORPUSCULAR VOLUME 97.6 fl (80.0-96.0); PLATELET COUNT, AUTOMATED 270 10^3/uL (150-450); WHITE BLOOD COUNT 21.1 10^3/uL (4.0-10.0)
[2020-12-18 04:55] LABS: BLOOD UREA NITROGEN 14 MG/DL (7-18); CALCIUM LEVEL 8.6 MG/DL (8.8-10.2); CARBON DIOXIDE LEVEL 31 MEQ/L (21-32); CHLORIDE LEVEL 107 MEQ/L (98-107); CREATININE FOR GFR 1.03 MG/DL (0.70-1.30); GLOMERULAR FILTRATION RATE > 60.0 (>49); GLUCOSE, FASTING 131 MG/DL (70-100); SODIUM LEVEL 140 MEQ/L (136-145)
[2020-12-18] MEDS: HEPARIN SOD (PORCINE) 5000UNITS/ML 1ML VIAL/SYRINGE SC SCH ×2 (05:05→14:00)
[2020-12-18 08:00] VITALS: BP 143/79
[2020-12-18] MEDS: ASPIRIN 81MG ENTERIC TABLET PO SCH (08:35)
[2020-12-18] MEDS: HumaLOG INSULIN (NovoLOG) PER UNIT SC SCH ×2 (08:35→12:00)
[2020-12-18] MEDS: OMEPRAZOLE 20 MG CAP PO SCH (08:35)
[2020-12-18] MEDS: DOXYCYCLINE HYCLATE 100 MG in D5W MINI-BAG PLUS 100 ML IV SCH (08:36)
[2020-12-18] MEDS: guaiFENesin ER 600 MG TAB PO SCH (08:36)
[2020-12-18] MEDS: ATORVASTATIN 20 MG TAB PO SCH (08:36)
[2020-12-18] MEDS: TAMSULOSIN 0.4 MG CAP PO SCH (08:36)
[2020-12-18] MEDS: oxyBUTYnin *DITROPAN XL* 5 MG TABCR PO SCH (08:36)
[2020-12-18] MEDS ORDERED: PNEUMOCOCCAL VACCINE 0.5ML SYRINGE (PNEUMOVAX 23) IM ONE (09:00)
[2020-12-18] MEDS ORDERED: FLUBLOK(EGG FREE)(QUAD)INFLUENZA VACC 0.5ML SYRINGE 18YRS & OLDER IM ONE (09:00)
[2020-12-18 12:00] VITALS: BP 142/78
[2020-12-18 16:00] VITALS: BP_SYST 128; BP_SYST 148; BP_DIAS 75; BP_DIAS 82
[2020-12-18] MEDS ORDERED: CEFD1CAP8 PO (16:16)
[2020-12-18] MEDS ORDERED: DOXY-350 PO (16:16)
[2020-12-18] MEDS ORDERED: MUCI600T31 PO (16:16)
--- NOTE | 2020-12-18 22:36 | DS.PDOC ---
Discharge Summary General Date of Admission December 16, 2020 at 21:09 Date of Discharge December 18, 2020 Discharge Summary PROCEDURES PERFORMED DURING STAY: None ADMITTING DIAGNOSES: 1. Sepsis 2/2 pneumonia 2. CLL 3. Type 2 diabetes mellitus 4. Hypertension 5. Hyperlipidemia 6. Little's esophagus 7. Low back pain 2/2 discopathy 8. BPH 9. Liver Cirrhosis with chronic hepatitis C DISCHARGE DIAGNOSES: 1. Sepsis 2/2 pneumonia 2. CLL 3. Type 2 diabetes mellitus 4. Hypertension 5. Hyperlipidemia 6. Little's esophagus 7. Low back pain 2/2 discopathy 8. BPH 9. Liver Cirrhosis with chronic hepatitis C COMPLICATIONS/CHIEF COMPLAINT: Hypoxia, Pneumonia. HISTORY OF PRESENT ILLNESS: Copied from admitting physician's H&P " Amando Ovalle is a 70 year old male who presented to the ED today after 3 days of worsening cough and shortness of breath. He states his symptoms came on gradually over the course of 1 day on Saturday. He does not recall what he was doing when his symptoms began. He notes a productive cough with yellow sputum, no hemoptysis. He also notes some shortness of breath which is worse when he lies down. He reports chest pain which is present around his rib cage only when coughing. He denies any radiation of the pain. He describes the pain as sharp. He denies prior episodes of symptoms like this. No fevers, chills, weight loss. Patient is a poor history regarding his medical history and much of this is obtained from chart review. " HOSPITAL COURSE: Patient was given ceftriaxone and doxycycline. Today, patient wanted to go home, but he was on 4L of oxygen. I told him that if he was able to be weaned off oxygen, he would be ready for home. Later in the afternoon, he was weaned off oxygen. Nurse reported that patient was ambulatory in the room. He felt ready for home and was subsequently discharged home with home health. DISCHARGE MEDICATIONS: Please see below. ALLERGIES: Please see below. PHYSICAL EXAMINATION ON DISCHARGE: VITAL SIGNS: Please see below. GENERAL: Comfortable, in no apparent distress HEENT: Head normocephalic, atraumatic NECK: Supple CARDIOVASCULAR EXAMINATION: Regular rate and rhythm RESPIRATORY EXAMINATION: Lungs clear to auscultation bilaterally ABDOMINAL EXAMINATION: Soft, non-tender, normal bowel sounds EXTREMITIES: No pitting edema bilaterally SKIN: Warm and dry NEUROLOGICAL EXAMINATION: CN 3-12 grossly intact PSYCHIATRIC EXAMINATION: Normal mood and affect LABORATORY DATA: Please see below. IMAGING: Radiologist interpretation CT angio chest 1. Increased peripheral mixed interstitial and airspace opacity in the right lower lobe with somewhat nodular mostly more dense opacity measuring 1.8 cm which is larger and better visualized and of uncertain etiology. Findings could be related to pulmonary fibrosis, although pneumonia is not excluded. Parenchymal mass lesion could potentially be obscured but is considered less likely given the tiny rounded foci of air within this. Recommend follow-up to resolution. 2. Numerous peribronchovascular nodules, most pronounced in the right upper lobe where there are larger more extensive nodules measuring up to 7 mm, but seen in all lobes. These findings suggest endobronchial spread of infection or atypical infection such as mycobacterial infection. 3. Marked gallbladder distention. Common bile duct only partially included, measuring up to 10 mm. 4. Right hilar lymphadenopathy with the largest node measuring up to 2.3 cm in short axis dimension. Recommend attention to this on follow-up imaging. Recommend CT Chest at 3-6 months. Subsequent management based on the most suspicious nodule(s) (Reference: Sandro). Also recommend correlation with patient's clinical presentation and history. PROGNOSIS: Good ACTIVITY: As tolerated. DIET: Consistent carbohydrate diet DISCHARGE PLAN: Home with home health DISPOSITION: 06 Home Health Service. DISCHARGE INSTRUCTIONS: 1. Follow up with your PCP within 1 week ITEMS TO FOLLOWUP ON ON OUTPATIENT: 1. CT chest in 3 to 6 months DISCHARGE CONDITION: Stable. Total time spent on discharge planning, discharge summary, and medication reconciliation: 50 minutes Vital Signs/I&Os Vital Signs Date Time Temp Pulse Resp B/P (MAP) Pulse Ox O2 Delivery O2 Flow Rate FiO2 12/18/20 16:00 97.3 104 18 148/82 (104) 91 Room Air 12/18/20 12:00 2.0 I&O- Last 24 Hours up to 6 AM 12/18/20 06:00 Intake Total 2800 ml Output Total 2975 ml Balance -175 ml Laboratory Data Labs 24H Laboratory Tests 2 12/18/20 04:12: Nucleated Red Blood Cells % (auto) 0.0, Anion Gap 2L, Glomerular Filtration Rate > 60.0, Calcium Level 8.6L 12/18/20 11:45: Bedside Glucose (Misc Panel) 84 CBC/BMP Laboratory Tests 12/18/20 04:12 FSBS Laboratory Tests Test 12/18/20 11:45 Range/Units Bedside Glucose (Misc Panel) 84 80-115 MG/DL Microbiology Microbiology 12/17/20 Gram Stain - Final, Resulted 12/17/20 Sputum Culture, Resulted Pending 12/16/20 Blood Culture - Preliminary, Resulted No Growth after 48 hours. All Specime... 12/16/20 Respiratory Virus Panel (PCR) (TASIA) - Final, Complete 12/16/20 Blood Culture - Preliminary, Resulted No Growth after 48 hours. All Specime... Discharge Medications Scheduled Amlodipine Besylate (Amlodipine Besylate) 10 Mg Tab, 10 MG PO DAILY, (Reported) Aspirin (Aspirin EC) 81 Mg Tablet.dr, 81 MG PO DAILY, (Reported) Atorvastatin Calcium (Atorvastatin Calcium) 40 Mg Tab, 40 MG PO DAILY, (Reported) Benazepril HCl (Benazepril HCl) 20 Mg Tablet, 20 MG PO DAILY, (Reported) Cefdinir (Cefdinir) 300 Mg Capsule, 300 MG PO BID, (Reported) STARTED 12/18/20 Doxycycline Monohydrate (Doxycycline Monohydrate) 100 Mg Capsule, 100 MG PO BID, (Reported) STARTED 12/18/20 Guaifenesin (Mucinex) 600 Mg Tab.er.12h, 600 MG PO BID, (Reported) STARTED 12/18/20 Metformin HCl (Metformin HCl) 1,000 Mg Tab, 1,000 MG PO BID, (Reported) Omeprazole (Omeprazole) 40 Mg Cap, 40 MG PO DAILY, (Reported) Oxybutynin Chloride (Oxybutynin Chloride ER) 15 Mg Tab.er.24, 15 MG PO DAILY, (Reported) Tamsulosin Hcl (Tamsulosin HCl) 0.4 Mg Cap, 0.4 MG PO DAILY, (Reported) Scheduled PRN Albuterol Sulfate (Ventolin Hfa) 108 Mcg/Act Aer, 2 PUFF INH Q4-6HP PRN for SHORTNESS OF BREATH, (Reported) Ibuprofen (Ibuprofen) 600 Mg Tablet, 600 MG PO TID PRN for HEADACHE OR PAIN, (Reported) Allergies Coded Allergies: No Known Allergies (Unverified , 11/28/18) ANNIKA ALVAREZ DO December 18, 2020 22:36
[2020-12-19] MEDS ORDERED: CEFD300CAP PO (19:39)
[2020-12-19] MEDS ORDERED: MUCI600T31 PO (19:39)
[2020-12-19] MEDS ORDERED: DOXY100C37 PO (19:39)
[2020-12-19] MEDS ORDERED: IBUP1TAB6 PO (19:39)
[2020-12-19] MEDS ORDERED: PATIENT COMMENT (19:41)
== END 2020-12-18 17:17 | disposition home health service (06) | DRG 871 ==
LOC: M ED 14:21 → M ED INP 21:09 → ENRESERV 21:39 → M PCU 22:36
PROVIDERS: ADMIT Family Medicine; ATTEND Internal Medicine
DX: A41.9 Sepsis, unspecified organism (principal); J18.9 Pneumonia, unspecified organism; C91.10 Chronic lymphocytic leukemia of B-cell type not having achieved remission; N40.0 Benign prostatic hyperplasia without lower urinary tract symptoms; I10 Essential (primary) hypertension; E78.5 Hyperlipidemia, unspecified; B18.2 Chronic viral hepatitis C; K74.60 Unspecified cirrhosis of liver; E11.9 Type 2 diabetes mellitus without complications; K22.70 Barrett's esophagus without dysplasia; Z79.899 Other long term (current) drug therapy; Z79.82 Long term (current) use of aspirin; E55.9 Vitamin D deficiency, unspecified; M54.5 Low back pain; F17.200 Nicotine dependence, unspecified, uncomplicated

== ENCOUNTER 2020-12-19 15:19 | Inpatient (IN) | payer MEDICARE ==
[~2020-12-19] VITALS: Ht 180.3 cm; Wt 76.0 kg
[~2020-12-19 15:19] MED LIST changes: +ASPI81TA26 PO; +BENA20TA8 PO; +CEFD1CAP8 PO; +DOXY-350 PO; +MUCI600T31 PO; +OXYB15TA14 PO; +med rec comment
[2020-12-19] MEDS ORDERED: LEVALBUTEROL HFA 45MCG/ACT 15 GM INHALER INH PRN (16:15)
--- NOTE | 2020-12-19 16:39 | REP ---
INDICATION: DYSPNEA/COUGH COMPARISON: 12/16/2020 TECHNIQUE: Portable AP view of the chest FINDINGS: The mediastinum and cardiac silhouette are stable and within normal limits for portable technique. The lung lorenz demonstrate diffuse chronic appearing interstitial changes. Superimposed lower lobe atelectasis cannot be excluded. No discrete focal consolidation, effusion, or pneumothorax.. IMPRESSION: Chronic changes similar to prior examination. Cannot exclude subtle superimposed basilar atelectasis. <Electronically signed by Mayo Bradshaw > 12/19/20 [id number]
[2020-12-19 17:08] LABS: VENOUS BASE EXCESS -1.2 (-2.0-2.0); VENOUS HCO3 24.4 MEQ/L (23.0-27.0); VENOUS O2 SATURATION 93.6 % (60.0-80.0); VENOUS PARTIAL PRESSURE CO2 44.1 mmHg (38.0-50.0); VENOUS PARTIAL PRESSURE O2 68.5 mmHg (30.0-50.0); VENOUS PH 7.361 UNITS (7.330-7.430); VENOUS STANDARD HCO3 23.4 MEQ/L; VENOUS TOTAL CO2 25.8 MEQ/L (24.0-28.0)
[2020-12-19 17:13] LABS: HEMATOCRIT 42.6 % (42.0-52.0); HEMOGLOBIN 13.3 g/dl (13.5-17.5); MEAN CORPUSCULAR HEMOGLOBIN 30.2 pg (27.0-33.0); MEAN CORPUSCULAR HGB CONC 31.2 g/dl (32.0-36.5); MEAN CORPUSCULAR VOLUME 96.6 fl (80.0-96.0); PLATELET COUNT, AUTOMATED 270 10^3/uL (150-450); RED BLOOD COUNT 4.41 10^6/uL (4.30-6.10); WHITE BLOOD COUNT 15.4 10^3/uL (4.0-10.0)
[2020-12-19 17:29] LABS: BASOPHILS 1 % (0-1); EOSINOPHILS 1 % (0-3); LYMPHOCYTES 31 % (16-44); MONOCYTES 4 % (0-5); NEUTROPHILS 63 % (28-66); PLATELET ESTIMATE NORMAL (NORMAL)
[2020-12-19 17:45] LABS: ALT/SGPT 23 U/L (12-78); BILIRUBIN,DIRECT 0.2 MG/DL (0.0-0.2); BILIRUBIN,TOTAL 0.4 MG/DL (0.2-1.0); BLOOD UREA NITROGEN 7 MG/DL (7-18); CARBON DIOXIDE LEVEL 29 MEQ/L (21-32); CHLORIDE LEVEL 108 MEQ/L (98-107); CK-MB VALUE MASS 2.7 NG/ML (<3.6); CPK CREATINE PHOSPHOKINASE 189 U/L (39-308); CREATININE FOR GFR 0.89 MG/DL (0.70-1.30); GLOMERULAR FILTRATION RATE > 60.0 (>49); GLUCOSE, FASTING 93 MG/DL (70-100); MAGNESIUM LEVEL 1.7 MG/DL (1.8-2.4); MB/CK RELATIVE INDEX 1.43 (< OR =4); NT-PRO BNP 1151 PG/ML (<125); PHOSPHORUS LEVEL 3.6 MG/DL (2.5-4.9); POTASSIUM SERUM 3.9 MEQ/L (3.5-5.1); SODIUM LEVEL 141 MEQ/L (136-145); TOTAL PROTEIN 7.3 GM/DL (6.4-8.2); TROPONIN I < 0.02 NG/ML (< 0.10)
[2020-12-19] MEDS ORDERED: DOXY100C37 PO (19:39)
[2020-12-19] MEDS ORDERED: IBUP1TAB6 PO (19:39)
[2020-12-19] MEDS ORDERED: CEFD300CAP PO (19:39)
[2020-12-19] MEDS ORDERED: MUCI600T31 PO (19:39)
[2020-12-19] MEDS ORDERED: PATIENT COMMENT (19:41)
--- NOTE | 2020-12-19 20:15 | ECGEPIP ---
[facility] - ED Test Date: 2020-12-19 Pat Name: FLACO BALL Department: Room: - Gender: Male Business Information Consultant: nino : [id number] Requested By: ELLEN Glynn PA-C Order Number: [id number] Reading MD: Chantelle Lombardi Measurements Intervals [place] Rate: 95 P: 50 DE: 130 QRS: 71 QRSD: 100 T: 59 QT: 374 QTc: 469 Interpretive Statements Sinus rhythm with premature atrial complexes NSTTW abnormalities increased ectopy 12/16/20 Electronically Signed on 12-19-2020 20:15:31 EDT by Chantelle Lombardi
[2020-12-19] MEDS ORDERED: IBUPROFEN 600MG TAB PO PRN (20:35)
[2020-12-19] MEDS ORDERED: ACETAMINOPHEN TAB 650MG DOSE (2X325MG) PO PRN (20:35)
[2020-12-19] MEDS: guaiFENesin ER 600 MG TAB PO SCH (20:59)
[2020-12-19] MEDS: CEFDINIR 300 MG CAP (OMNICEF) PO SCH (20:59)
[2020-12-19] MEDS: DOXYCYCLINE HYCLATE 100MG TABLET PO SCH (20:59)
[2020-12-19] MEDS: DOCUSATE SODIUM 100MG CAPSULE PO SCH (20:59)
[2020-12-19] MEDS: HumaLOG INSULIN (NovoLOG) PER UNIT SC SCH (21:00)
--- NOTE | 2020-12-19 21:03 | HPEPDOC ---
[facility] Medical History & Physical Date of Admission December 19, 2020 Date of Service: December 19, 2020 Attending Physician: RYANN ALBERTO MD History and Physical CHIEF COMPLAINT: shortness of breath HISTORY OF PRESENT ILLNESS: Amando Ovalle is a 70 year old male who presented to the ED today at the direction of his home health nurse due to low oxygen saturations. The patient states he does continue to have some shortness of breath on exertion, which he feels has been stable since he left the hospital. He notes his cough is about the same, productive of mostly clear sputum with some yellow. No blood in the sputum. He denies fevers, chills, or chest pain. PAST MEDICAL HISTORY: CLL Type 2 diabetes Hypertension Hyperlipidemia Liver cirrhosis with chronic hepatitis C Little's esophagus vitamin D deficiency Low back pain due to discopathy BPH PAST SURGICAL HISTORY: Lumbar fusion Cervical fusion Umbilical hernia repair as a child EGD and colonoscopies SOCIAL HISTORY: Current smoker since age 19 up to 2 packs per day, currently 1 ppd and trying to cut back. Denies alcohol use. Denies illicit substance use Lives at home with a roommate On disability for back problems. FAMILY HISTORY: A sister of unknown unknown type of cancer in her 30s. Another sister had leukemia in childhood. ALLERGIES: Please see below. REVIEW OF SYSTEMS: 10-point review of systems negative except as listed in HPI HOME MEDICATIONS: Please see below. PHYSICAL EXAMINATION: VITAL SIGNS: See below GENERAL: Alert, comfortable, in no acute distress HEENT: Normocephalic, atraumatic, sclera anicteric, moist mucous membranes NECK: Supple, trachea midline, no lymphadenopathy CARDIOVASCULAR: Regular rate and rhythm, normal S1 and S2. RESPIRATORY: Clear to auscultation bilaterally with equal air entry bilaterally. No wheezing, rhonchi, or rales. ABDOMEN: Soft, nontender, nondistended, bowel sounds present, no masses or hepatosplenomegaly appreciated EXTREMITIES: No cyanosis or edema. Pulses 2+/4 in bilateral upper and lower extremities SKIN: [place], warm, dry NEUROLOGIC: Alert and oriented x3 to person, place and time. No focal deficits appreciated PSYCHIATRIC: Mood and affect appropriate LABORATORY DATA: See below. IMAGING: - CXR Chronic changes similar to prior examination. Cannot exclude subtle superimposed basilar atelectasis. MICROBIOLOGY: Please see below. ASSESSMENT: 70 year old male with PMHx of CLL, type 2 diabetes, hypertension, hyperlipidemia, liver cirrhosis with chronic hepatitis C, Little's esophagus, vitamin D deficiency, low back pain due to discopathy, and BPH who presented to the ED after visiting nurse found him to be hypoxic requiring oxygen supplementation likely secondary to his pneumonia which is currently being treated PLAN: # Hypoxia 2/2 community Acquired Pneumonia - Lactic acid level below 2. No additional evidence for sepsis. Chronic elevated WBC at baseline. - PO antibiotics cefdinir and doxycycline - oxygen therapy titrate to O2 sat >92%, incentive spirometer, acapella. prn nebs. # CLL - may contribute to his elevated WBC, baseline appears to be 14-20 - follows with oncology, no current treatment # Type 2 diabetes - consistent carb diet, SSI ACHS, hypoglycemic protocol - hold home meds # Hypertension - continue home meds # Hyperlipidemia - continue statin and aspirin # Little's esophagus - continue PPI # Low back pain due to discopathy - continue home tylenol and ibuprofen # BPH - continue home flomax and Oxybutynin # Liver cirrhosis with chronic hepatitis C DVT prophylaxis: sc heparin Disposition: admitted to med/surg pending clinical improvement Vital Signs Vital Signs Date Time Temp Pulse Resp B/P (MAP) Pulse Ox O2 Delivery O2 Flow Rate FiO2 12/19/20 19:25 102 20 176/81 (112) 92 Room Air 12/19/20 19:00 2.0 12/19/20 16:14 97.9 Laboratory Data Labs 24H Laboratory Tests 2 12/19/20 17:01: Neutrophils (%) (Auto) , Nucleated Red Blood Cells % (auto) 0.0, Neutrophils 63, Lymphocytes (Manual) 31, Monocytes (Manual) 4, Eosinophils (Manual) 1, Basophils (Manual) 1, Platelet Estimate NORMAL, Blood Gas Bicarbonate Standard 23.4, Venous Blood pH 7.361, Venous Blood Partial Pressure CO2 44.1, Venous Blood Partial Pressure O2 68.5H, Venous Blood Total Carbon Dioxide 25.8, Venous Blood HCO3 24.4, Venous Blood Oxygen Saturation 93.6H, Venous Blood Base Excess -1.2, Anion Gap 4L, Glomerular Filtration Rate > 60.0, Calcium Level 9.0, Phosphorus Level 3.6, Magnesium Level 1.7L, Total Bilirubin 0.4, Direct Bilirubin 0.2, Aspartate Amino Transf (AST/SGOT) 26, Alanine Aminotransferase (ALT/SGPT) 23, A lkaline Phosphatase 95, Total Creatine Kinase 189, Creatine Kinase MB 2.7, Creatine Kinase MB Relative Index 1.43, Troponin I < 0.02, JB-Jel-P-Type Natriuretic Peptide 1151H, Total Protein 7.3, Albumin 3.0L, Albumin/Globulin Ratio 0.7 12/19/20 19:38: Lactic Acid Level 1.2 12/19/20 20:40: CBC/BMP Laboratory Tests 12/19/20 17:01 Home Medications Scheduled Amlodipine Besylate (Amlodipine Besylate) 10 Mg Tab, 10 MG PO DAILY Aspirin (Aspirin EC) 81 Mg Tablet.dr, 81 MG PO DAILY Atorvastatin Calcium (Atorvastatin Calcium) 40 Mg Tab, 40 MG PO DAILY Benazepril HCl (Benazepril HCl) 20 Mg Tablet, 20 MG PO DAILY Cefdinir (Cefdinir) 300 Mg Capsule, 300 MG PO BID STARTED 12/18/20 Doxycycline Monohydrate (Doxycycline Monohydrate) 100 Mg Capsule, 100 MG PO BID STARTED 12/18/20 Guaifenesin (Mucinex) 600 Mg Tab.er.12h, 600 MG PO BID STARTED 12/18/20 Metformin HCl (Metformin HCl) 1,000 Mg Tab, 1,000 MG PO BID Omeprazole (Omeprazole) 40 Mg Cap, 40 MG PO DAILY Oxybutynin Chloride (Oxybutynin Chloride ER) 15 Mg Tab.er.24, 15 MG PO DAILY Tamsulosin Hcl (Tamsulosin HCl) 0.4 Mg Cap, 0.4 MG PO DAILY Scheduled PRN Albuterol Sulfate (Ventolin Hfa) 108 Mcg/Act Aer, 2 PUFF INH Q4-6HP PRN for SHORTNESS OF BREATH Ibuprofen (Ibuprofen) 600 Mg Tablet, 600 MG PO TID PRN for HEADACHE OR PAIN Allergies Coded Allergies: No Known Allergies (Unverified , 11/28/18) GME ATTESTATION GME ATTESTATION My faculty preceptor for this patient encounter was physically present during the encounter and was fully available. All aspects of the patient interview, examination, medical decision making process, and medical care plan development were reviewed and approved by the faculty preceptor. The faculty preceptor is aware and concurs with the plan as stated in the body of this note and will attest to such by his/her cosignature. ANDREW PEREZ D.O. December 19, 2020 21:03
[2020-12-19 21:29] LABS: RSV AMPLIFICATION NEGATIVE (NEGATIVE)
[2020-12-19] MEDS ORDERED: DEXTROSE 50% 50 ML SYRINGE IV PRN (23:30)
[2020-12-19] MEDS ORDERED: GLUCOSE 4GM CHEW TABLET PO PRN (23:30)
[2020-12-19] MEDS ORDERED: GLUCAGON INJ 1MG VIAL SC PRN (23:30)
[2020-12-19] MEDS ORDERED: IPRATROPIUM 0.5MG/ALBUTEROL 2.5MG INH SOL UD 3ML (DUONEB) NEB PRN (23:35)
[2020-12-20 00:33] VITALS: BP 169/95
[2020-12-20] MEDS: HEPARIN SOD (PORCINE) 5000UNITS/ML 1ML VIAL/SYRINGE SC SCH ×3 (05:54→21:25)
[2020-12-20 06:00] VITALS: BP 148/73
[2020-12-20 06:33] LABS: HEMOGLOBIN 12.7 g/dl (13.5-17.5); MEAN CORPUSCULAR HEMOGLOBIN 29.2 pg (27.0-33.0); MEAN CORPUSCULAR HGB CONC 30.2 g/dl (32.0-36.5); MEAN CORPUSCULAR VOLUME 96.6 fl (80.0-96.0); PLATELET COUNT, AUTOMATED 271 10^3/uL (150-450); RED BLOOD COUNT 4.35 10^6/uL (4.30-6.10); WHITE BLOOD COUNT 15.4 10^3/uL (4.0-10.0)
[2020-12-20 07:02] LABS: BLOOD UREA NITROGEN 9 MG/DL (7-18); CALCIUM LEVEL 9.1 MG/DL (8.8-10.2); CARBON DIOXIDE LEVEL 31 MEQ/L (21-32); CHLORIDE LEVEL 104 MEQ/L (98-107); CREATININE FOR GFR 0.82 MG/DL (0.70-1.30); GLOMERULAR FILTRATION RATE > 60.0 (>49); GLUCOSE, FASTING 112 MG/DL (70-100); SODIUM LEVEL 139 MEQ/L (136-145)
[2020-12-20 07:38] VITALS: O2SAT 94
[2020-12-20] MEDS: TAMSULOSIN 0.4 MG CAP PO SCH (08:34)
[2020-12-20] MEDS: DOCUSATE SODIUM 100MG CAPSULE PO SCH ×2 (08:34→21:25)
[2020-12-20] MEDS: CEFDINIR 300 MG CAP (OMNICEF) PO SCH (08:34)
[2020-12-20] MEDS: BENAZEPRIL 20 MG TAB PO SCH (08:34)
[2020-12-20] MEDS: guaiFENesin ER 600 MG TAB PO SCH ×2 (08:34→21:25)
[2020-12-20] MEDS: ATORVASTATIN 20 MG TAB PO SCH (08:35)
[2020-12-20] MEDS: DOXYCYCLINE HYCLATE 100MG TABLET PO SCH (08:35)
[2020-12-20] MEDS: ASPIRIN 81MG ENTERIC TABLET PO SCH (08:35)
[2020-12-20] MEDS: oxyBUTYnin *DITROPAN XL* 5 MG TABCR PO SCH (08:35)
[2020-12-20] MEDS: HumaLOG INSULIN (NovoLOG) PER UNIT SC SCH ×4 (08:36→20:58)
[2020-12-20] MEDS ORDERED: ALBUTEROL 90 MCG/ACT 8GM HFA INHALER INH PRN (10:45)
[2020-12-20] MEDS ORDERED: predniSONE 20 MG TAB PO ONE (11:00)
[2020-12-20] MEDS: IPRATROPIUM 0.5MG/ALBUTEROL 2.5MG INH SOL UD 3ML (DUONEB) INH SCH ×3 (11:32→19:53)
[2020-12-20] MEDS: LevoFLOXacin IV 750 MG in IV 1 EA IV SCH (13:03)
[2020-12-20 14:00] VITALS: BP 130/80
--- NOTE | 2020-12-20 14:03 | IPNPDOC ---
Text Note Date of Service The patient was seen on 12/20/20. NOTE Subjective: No any acute events overnight. Patient continues to complain of c ough with yellowish sputum. No fever or chills Objective: GENERAL APPEARANCE: NAD HEENT: no scleral icterus, plus JVD, EOMI CARDIOVASCULAR: S1S2 LUNGS: Diminished lung sounds bilaterally ABDOMEN: soft & not tender w palpitation MUSCULOSKELETAL: no cyanosis, no swelling INTEGUMENT: no generalized pallor NEUROLOGICAL: cranial nerve function from 2-12 intact intact, follows commands, speech not dysarthric Assessment and plan: 70 year old male with PMHx of CLL, type 2 diabetes, hypertension, hyper lipidemia, liver cirrhosis with chronic hepatitis C, Little's esophagus, vitamin D deficiency, low back pain due to discopathy, and BPH who presented to the ED after visiting nurse found him to be hypoxic requiring oxygen supplementation Acute hypoxemic respiratory failure Patient did not use oxygen at home. Currently he is on 2 L of oxygen with pulse ox 89%. Most likely secondary to acute CHF and COPD exacerbation Levofloxacin IV, prednisone by mouth, inhalers Continue oxygen therapy Incentive spirometry Acute diastolic CHF Patient has positive JVD, orthopnea BNP elevated to 1151 I's and O's Lasix IV Echo CLL Follow-up with oncologist Type 2 diabetes Insulin sliding scale Diabetes diet Hypertension Continue home meds Hyperlipidemia Continue statin Little's esophagus continue PPI Low back pain due to discopathy continue pain management BPH continue home flomax and Oxybutynin Liver cirrhosis with chronic hepatitis C Follow-up with ID specialist in the outpatient settings VS,Marc, I+O VS, Marc, I+O Laboratory Tests 12/19/20 17:01 12/20/20 06:18 Vital Signs Date Time Temp Pulse Resp B/P (MAP) Pulse Ox O2 Delivery O2 Flow Rate FiO2 12/20/20 10:54 90 Nasal Cannula 2.0 12/20/20 08:34 147/89 12/20/20 08:34 86 12/20/20 06:00 98.4 20 I&O- Last 24 Hours up to 6 AM 12/20/20 06:00 Intake Total 120 ml Output Total 400 ml Balance -280 ml EDITH IRVIN DO December 20, 2020 14:03
[2020-12-20] MEDS: FUROSEMIDE 40MG/4ML VIAL (J1940) IV SCH (16:55)
[2020-12-20 22:00] VITALS: BP 134/76
[2020-12-21] MEDS: FUROSEMIDE 40MG/4ML VIAL (J1940) IV SCH ×3 (00:40→16:09)
[2020-12-21] MEDS: IPRATROPIUM 0.5MG/ALBUTEROL 2.5MG INH SOL UD 3ML (DUONEB) INH SCH ×6 (00:53→20:02)
[2020-12-21] MEDS: HEPARIN SOD (PORCINE) 5000UNITS/ML 1ML VIAL/SYRINGE SC SCH ×4 (05:46→21:24)
[2020-12-21 06:00] VITALS: BP 146/87
[2020-12-21] MEDS: DOCUSATE SODIUM 100MG CAPSULE PO SCH ×2 (08:56→21:24)
[2020-12-21] MEDS: ATORVASTATIN 20 MG TAB PO SCH (08:56)
[2020-12-21] MEDS: guaiFENesin ER 600 MG TAB PO SCH ×2 (08:56→21:24)
[2020-12-21] MEDS: HumaLOG INSULIN (NovoLOG) PER UNIT SC SCH ×4 (08:56→21:00)
[2020-12-21] MEDS: ASPIRIN 81MG ENTERIC TABLET PO SCH (08:58)
[2020-12-21] MEDS: BENAZEPRIL 20 MG TAB PO SCH (08:58)
[2020-12-21] MEDS: predniSONE 20 MG TAB PO SCH (08:58)
[2020-12-21] MEDS: TAMSULOSIN 0.4 MG CAP PO SCH (08:58)
[2020-12-21] MEDS: oxyBUTYnin *DITROPAN XL* 5 MG TABCR PO SCH (08:58)
[2020-12-21 09:50] VITALS: O2SAT 90
[2020-12-21 10:06] LABS: BASO # 0.1 10^3/uL (0.0-0.2); BASO % 0.3 % (0.0-1.0); EOS # 0.1 10^3/uL (0.0-0.5); EOS % 0.4 % (0.0-3.0); HEMOGLOBIN 13.1 g/dl (13.5-17.5); LYMPH # 3.7 10^3/uL (1.5-5.0); LYMPH % 21.1 % (24.0-44.0); MEAN CORPUSCULAR HEMOGLOBIN 29.2 pg (27.0-33.0); MEAN CORPUSCULAR HGB CONC 31.2 g/dl (32.0-36.5); MEAN CORPUSCULAR VOLUME 93.8 fl (80.0-96.0); MONO # 1.3 10^3/uL (0.0-0.8); MONO % 7.6 % (2.0-8.0); NEUTROPHILS # 12.1 10^3/uL (1.5-8.5); NEUTROPHILS % 69.7 % (36.0-66.0); PLATELET COUNT, AUTOMATED 295 10^3/uL (150-450); RED BLOOD COUNT 4.48 10^6/uL (4.30-6.10); WHITE BLOOD COUNT 17.4 10^3/uL (4.0-10.0)
[2020-12-21 10:47] LABS: ALBUMIN 2.8 GM/DL (3.2-5.2); ALT/SGPT 21 U/L (12-78); BILIRUBIN,TOTAL 0.4 MG/DL (0.2-1.0); BLOOD UREA NITROGEN 19 MG/DL (7-18); CALCIUM LEVEL 9.5 MG/DL (8.8-10.2); CARBON DIOXIDE LEVEL 32 MEQ/L (21-32); CHLORIDE LEVEL 100 MEQ/L (98-107); CREATININE FOR GFR 1.04 MG/DL (0.70-1.30); GLOMERULAR FILTRATION RATE > 60.0 (>49); GLUCOSE, FASTING 194 MG/DL (70-100); MAGNESIUM LEVEL 1.6 MG/DL (1.8-2.4); POTASSIUM SERUM 3.2 MEQ/L (3.5-5.1); SODIUM LEVEL 138 MEQ/L (136-145); TOTAL PROTEIN 7.3 GM/DL (6.4-8.2)
[2020-12-21] MEDS: LevoFLOXacin IV 750 MG in IV 1 EA IV SCH (13:00)
[2020-12-21 14:00] VITALS: BP 137/82
--- NOTE | 2020-12-21 14:42 | IPNPDOC ---
Text Note Date of Service The patient was seen on 12/21/20. NOTE Subjective: No any acute events overnight. Patient stated that his breathing better. He developed good urine output around 2.1 L for past 24 hours Objective: GENERAL APPEARANCE: NAD HEENT: no scleral icterus, plus JVD, EOMI CARDIOVASCULAR: S1S2 LUNGS: Diminished lung sounds bilaterally ABDOMEN: soft & not tender w palpitation MUSCULOSKELETAL: no cyanosis, no swelling INTEGUMENT: no generalized pallor NEUROLOGICAL: cranial nerve function from 2-12 intact intact, follows commands, speech not dysarthric Assessment and plan: 70 year old male with PMHx of CLL, type 2 diabetes, hypertension, hyperlipidemia, liver cirrhosis with chronic hepatitis C, Little's esophagus, v itamin D deficiency, low back pain due to discopathy, and BPH who presented to the ED after visiting nurse found him to be hypoxic requiring oxygen supplementation Acute hypoxemic respiratory failure Patient did not use oxygen at home. Currently he is on 2 L of oxygen with pulse ox 89%. Most likely secondary to acute CHF and COPD exacerbation Levofloxacin IV, prednisone by mouth, inhalers Continue oxygen therapy Incentive spirometry Acute diastolic CHF Patient has positive JVD, orthopnea BNP elevated to 1151 I's and O's Lasix IV Echo CLL Follow-up with oncologist Type 2 diabetes Insulin sliding scale Diabetes diet Hypertension Continue home meds Hyperlipidemia Continue statin Little's esophagus continue PPI Low back pain due to discopathy continue pain management BPH continue home flomax and Oxybutynin Liver cirrhosis with chronic hepatitis C Follow-up with ID specialist in the outpatient settings Electrolytes imbalance Replaced VS,Fishbone, I+O VS, Fishbone, I+O Laboratory Tests 12/21/20 09:52 Vital Signs Date Time Temp Pulse Resp B/P (MAP) Pulse Ox O2 Delivery O2 Flow Rate FiO2 12/21/20 14:00 97.6 102 20 137/82 (100) 89 Room Air 12/21/20 09:50 2.0 I&O- Last 24 Hours up to 6 AM 12/21/20 05:59 Intake Total 1075 ml Output Total 1400 ml Balance -325 ml EDITH IRVIN DO December 21, 2020 14:42
[2020-12-21] MEDS ORDERED: POTASSIUM CHLORIDE 10 MEQ SR TABLET PO ONE (15:00)
[2020-12-21] MEDS: MAGNESIUM GLUCONATE 500 MG TAB PO SCH (16:39)
[2020-12-21] MEDS ORDERED: RAMELTEON 8 MG TAB (ROZEREM) PO SCH (21:00)
[2020-12-21 22:00] VITALS: BP 125/61
[2020-12-21 23:29] VITALS: O2SAT 90
[2020-12-22] VITALS (7 sets, daily range): BP systolic 111–125; BP diastolic 62–79; O2SAT 80–91
[2020-12-22] MEDS: FUROSEMIDE 40MG/4ML VIAL (J1940) IV SCH ×2 (00:14→08:09)
[2020-12-22] MEDS: IPRATROPIUM 0.5MG/ALBUTEROL 2.5MG INH SOL UD 3ML (DUONEB) INH SCH ×4 (01:29→11:22)
[2020-12-22] MEDS: HEPARIN SOD (PORCINE) 5000UNITS/ML 1ML VIAL/SYRINGE SC SCH ×2 (05:22→14:00)
[2020-12-22] MEDS: guaiFENesin ER 600 MG TAB PO SCH (08:05)
[2020-12-22] MEDS: DOCUSATE SODIUM 100MG CAPSULE PO SCH (08:05)
[2020-12-22] MEDS: HumaLOG INSULIN (NovoLOG) PER UNIT SC SCH ×2 (08:05→11:44)
[2020-12-22] MEDS: MAGNESIUM GLUCONATE 500 MG TAB PO SCH (08:05)
[2020-12-22] MEDS: ASPIRIN 81MG ENTERIC TABLET PO SCH (08:05)
[2020-12-22] MEDS: predniSONE 20 MG TAB PO SCH (08:06)
[2020-12-22] MEDS: ATORVASTATIN 20 MG TAB PO SCH (08:06)
[2020-12-22] MEDS: TAMSULOSIN 0.4 MG CAP PO SCH (08:06)
[2020-12-22] MEDS: oxyBUTYnin *DITROPAN XL* 5 MG TABCR PO SCH (08:06)
[2020-12-22] MEDS: BENAZEPRIL 20 MG TAB PO SCH (08:08)
[2020-12-22] MEDS ORDERED: POTASSIUM CHLORIDE 10 MEQ SR TABLET PO SCH (09:00)
[2020-12-22] MEDS ORDERED: PRED5PAK2 PO (11:26)
[2020-12-22] MEDS ORDERED: SPIR1CAP INH (11:26)
[2020-12-22] MEDS ORDERED: TORS10TA3 PO (11:26)
[2020-12-22] MEDS ORDERED: ACET1TAB55 PO (11:26)
[2020-12-22] MEDS ORDERED: LEVO500T3 PO (11:26)
[2020-12-22] MEDS ORDERED: IPRA2IN INH (13:21)
[2020-12-22] MEDS: LevoFLOXacin IV 750 MG in IV 1 EA IV SCH (14:00)
--- NOTE | 2020-12-22 16:35 | DS.PDOC ---
Discharge Summary General Date of Admission December 19, 2020 at 19:39 Date of Discharge 12/22/20 Discharge Summary PROCEDURES PERFORMED DURING STAY: [None]. ADMITTING DIAGNOSES: Acute hypoxemic respiratory failure Acute diastolic CHF CLL Type 2 diabetes Hypertension Hyperlipidemia Little's esophagus Low back pain due to discopathy BPH Liver cirrhosis with chronic hepatitis C Electrolytes imbalance DISCHARGE DIAGNOSES: Acute hypoxemic respiratory failure Acute diastolic CHF CLL Type 2 diabetes Hypertension Hyperlipidemia Little's esophagus Low back pain due to discopathy BPH Liver cirrhosis with chronic hepatitis C Electrolytes imbalance COMPLICATIONS/CHIEF COMPLAINT: Cll, Hypoxia,Pneumonia. HISTORY OF PRESENT ILLNESS: 70 year old male with PMHx of CLL, type 2 diabetes, hypertension, hyperlipidemia, liver cirrhosis with chronic hepatitis C, Little's esophagus, vitamin D deficiency, low back pain due to discopathy, and BPH who presented to the ED after visiting nurse found him to be hypoxic requiring oxygen supplementation HOSPITAL COURSE: During hospital stay following issues addressed Acute hypoxemic respiratory failure Patient did not use oxygen at home. Currently he is on 2 L of oxygen with pulse ox 89%. Most likely secondary to acute CHF and COPD exacerbation Patient received treatment with Levofloxacin IV, prednisone by mouth, inhalers Continue oxygen therapy Incentive spirometry Acute diastolic CHF Patient has positive JVD, orthopnea BNP elevated to 1151 I's and O's Lasix IV Echo pending report CLL Follow-up with oncologist Type 2 diabetes Insulin sliding scale Diabetes diet Hypertension Continue home meds Hyperlipidemia Continue statin Little's esophagus continue PPI Low back pain due to discopathy continue pain management BPH continue home flomax and Oxybutynin Liver cirrhosis with chronic hepatitis C Follow-up with ID specialist in the outpatient settings Electrolytes imbalance Replaced DISCHARGE MEDICATIONS: Please see below. ALLERGIES: Please see below. PHYSICAL EXAMINATION ON DISCHARGE: VITAL SIGNS: Please see below. GENERAL APPEARANCE: NAD HEENT: no scleral icterus, plus JVD, EOMI CARDIOVASCULAR: S1S2 LUNGS: Diminished lung sounds bilaterally ABDOMEN: soft & not tender w palpitation MUSCULOSKELETAL: no cyanosis, no swelling INTEGUMENT: no generalized pallor NEUROLOGICAL: cranial nerve function from 2-12 intact intact, follows commands, speech not dysarthric LABORATORY DATA: Please see below. IMAGING: [facility] NAME: FLACO BALL DATE OF : 1950 AGE: 70 SEX: M REPORT #: [id number] ROOM: ED TECHNOLOGIST: RUPALI DOCTOR: ELLEN SMALLWOOD PAC Ordered for Date&Time: 12/19/20 1607 cc: [~ rep ct ivnm] Service Date&Time: This report is in Signed status. If this report is in a DRAFT status it has not yet been reviewed by the radiologist for accuracy. Thank you for having your radiology procedures performed at [facility] RADIOLOGY REPORT Date&Time printed: [~ rep prt dt last] [~ rep prt tm last] Page [address] of [address] [id number] RADIOLOGY REPORT This report is in Signed status. If this report is in a DRAFT status it has not yet been reviewed by the ra diologist for accuracy. Thank you for having your radiology procedures performed at [facility] RADIOLOGY REPORT Date&Time printed: [~ rep prt dt last] [~ rep prt tm last] Page 1 of 1 COMPARISON: 12/16/2020 TECHNIQUE: Portable AP view of the chest FINDINGS: The mediastinum and cardiac silhouette are stable and within normal limits for portable technique. The lung lorenz demonstrate diffuse chronic appearing interstitial changes. Superimposed lower lobe atelectasis cannot be excluded. No discrete focal consolidation, effusion, or pneumothorax.. IMPRESSION: Chronic changes similar to prior examination. Cannot exclude subtle superimposed basilar atelectasis. <Electronically signed by Mayo Bradshaw > 12/19/20 1635 DD: Mayo Bradshaw MD 12/19/20 1634 DT: LISET 12/19/20 1635 DS: RILEY 12/19/20 1634 12/19/20 1634 [~ rep ct labl] PROGNOSIS: Fair ACTIVITY: [As tolerated]. DIET: Cardiac DISPOSITION: 01 Home, Self-Care. DISCHARGE INSTRUCTIONS: Stop smoking ITEMS TO FOLLOWUP ON ON OUTPATIENT: Follow-up with PCP and head holder in 7 days DISCHARGE CONDITION: [Stable]. TIME SPENT ON DISCHARGE: 40 minutes. Vital Signs/I&Os Vital Signs Date Time Temp Pulse Resp B/P (MAP) Pulse Ox O2 Delivery O2 Flow Rate FiO2 12/22/20 11:31 91 Nasal Cannula 2.0 12/22/20 08:09 93 12/22/20 08:08 111/62 12/22/20 06:00 97.1 18 I&O- Last 24 Hours up to 6 AM 12/22/20 06:00 Intake Total 1430 ml Output Total 1640 ml Balance -210 ml Laboratory Data Labs 24H Laboratory Tests 2 12/21/20 16:53: Bedside Glucose (Misc Panel) 311H 12/21/20 21:20: Bedside Glucose (Misc Panel) 164H 12/22/20 07:47: Bedside Glucose (Misc Panel) 216H 12/22/20 11:41: Bedside Glucose (Misc Panel) 93 FSBS Laboratory Tests Test 12/21/20 16:53 12/21/20 21:20 12/22/20 07:47 12/22/20 11:41 Range/Units Bedside Glucose (Misc Panel) 311 164 216 93 80-115 MG/DL Discharge Medications Scheduled Amlodipine Besylate (Amlodipine Besylate) 10 Mg Tab, 10 MG PO DAILY, (Reported) Aspirin (Aspirin EC) 81 Mg Tablet.dr, 81 MG PO DAILY, (Reported) Atorvastatin Calcium (Atorvastatin Calcium) 40 Mg Tab, 40 MG PO DAILY, (Reported) Benazepril HCl (Benazepril HCl) 20 Mg Tablet, 20 MG PO DAILY, (Reported) Guaifenesin (Mucinex) 600 Mg Tab.er.12h, 600 MG PO BID, (Reported) STARTED 12/18/20 Levofloxacin (Levofloxacin) 500 Mg Tablet, 500 MG PO DAILY Metformin HCl (Metformin HCl) 1,000 Mg Tab, 1,000 MG PO BID, (Reported) Omeprazole (Omeprazole) 40 Mg Cap, 40 MG PO DAILY, (Reported) Oxybutynin Chloride (Oxybutynin Chloride ER) 15 Mg Tab.er.24, 15 MG PO DAILY, (Reported) Prednisone (Prednisone) 5 Mg Tab.ds.pk, 5 MG PO ASDIRECTED 6 day dose pack taper Tamsulosin Hcl (Tamsulosin HCl) 0.4 Mg Cap, 0.4 MG PO DAILY, (Reported) Torsemide (Torsemide) 10 Mg Tablet, 1 TAB PO DAILY Scheduled PRN Acetaminophen (Acetaminophen) 325 Mg Tablet, 650 MG PO Q4H PRN for PAIN OR FEVER Albuterol Sulfate (Ventolin Hfa) 108 Mcg/Act Aer, 2 PUFF INH Q4-6HP PRN for SHORTNESS OF BREATH, (Reported) Allergies Coded Allergies: No Known Allergies (Unverified , 11/28/18) EDITH IRVIN DO December 22, 2020 16:35
== END 2020-12-22 15:44 | disposition home or self-care (01) | DRG 291 ==
LOC: M ED 15:19 → M ED INP 19:39 → ENRESERV 23:44 → M MSPAV 12-20 00:32
PROVIDERS: ADMIT Family Medicine; ATTEND Internal Medicine
DX: I11.0 Hypertensive heart disease with heart failure (principal); J96.01 Acute respiratory failure with hypoxia; I50.31 Acute diastolic (congestive) heart failure; C91.10 Chronic lymphocytic leukemia of B-cell type not having achieved remission; J44.1 Chronic obstructive pulmonary disease with (acute) exacerbation; N40.0 Benign prostatic hyperplasia without lower urinary tract symptoms; N18.2 Chronic kidney disease, stage 2 (mild); K74.60 Unspecified cirrhosis of liver; E78.5 Hyperlipidemia, unspecified; E11.9 Type 2 diabetes mellitus without complications; K22.70 Barrett's esophagus without dysplasia; M54.5 Low back pain; E55.9 Vitamin D deficiency, unspecified; Z79.899 Other long term (current) drug therapy; Z79.82 Long term (current) use of aspirin; F17.200 Nicotine dependence, unspecified, uncomplicated

== ENCOUNTER 2021-03-27 07:53 | Inpatient (IN) | payer MEDICARE ==
[2021-03-27] VITALS (12 sets, daily range): BP systolic 109–142; BP diastolic 55–67; O2SAT 76–95
[~2021-03-27] VITALS: Ht 180.3 cm; Wt 79.0 kg
[~2021-03-27 07:53] MED LIST changes: +ACET1TAB55 PO; +CEFD300CAP PO; +DOXY1CAP62 PO; +IBUP1TAB6 PO; +IPRA2IN INH; +LEVO500T3 PO; +PATIENT COMMENT; +PRED5PAK2 PO; +SPIR1CAP INH; +TORS10TA3 PO
[2021-03-27] MEDS ORDERED: DOXYCYCLINE HYCLATE 100MG TABLET PO SCH (09:00)
[2021-03-27 09:04] LABS: HEMATOCRIT 42.2 % (42.0-52.0); HEMOGLOBIN 12.5 g/dl (13.5-17.5); MEAN CORPUSCULAR HEMOGLOBIN 29.8 pg (27.0-33.0); MEAN CORPUSCULAR HGB CONC 29.6 g/dl (32.0-36.5); MEAN CORPUSCULAR VOLUME 100.5 fl (80.0-96.0); PLATELET COUNT, AUTOMATED 255 10^3/uL (150-450)
--- NOTE | 2021-03-27 09:17 | REP ---
INDICATION: DYSPNEA/COUGH COMPARISON: 12/19/2020 TECHNIQUE: Portable AP view of the chest FINDINGS: Mediastinum and cardiac silhouette are within normal limits and stable. Lung lorenz again demonstrate chronic fibrosis and emphysematous disease. Subtle scattered superimposed infiltrates (left greater than right) cannot definitively be excluded and warrant clinical correlation. No effusion. No pneumothorax. Skeletal structures are intact/stable. IMPRESSION: Advanced chronic changes. Cannot exclude subtle superimposed left-sided airspace disease. <Electronically signed by Mayo Bradshaw > 03/27/21 [id number]
[2021-03-27 09:23] LABS: WHITE BLOOD COUNT 26.4 10^3/uL (4.0-10.0)
[2021-03-27 09:37] LABS: ALBUMIN 2.7 GM/DL (3.2-5.2); BILIRUBIN,DIRECT 0.1 MG/DL (0.0-0.2); BILIRUBIN,TOTAL 0.3 MG/DL (0.2-1.0); CALCIUM LEVEL 8.3 MG/DL (8.8-10.2); CREATININE FOR GFR 1.49 MG/DL (0.70-1.30); GLOMERULAR FILTRATION RATE 49.8 (>49); POTASSIUM SERUM 4.5 MEQ/L (3.5-5.1); TOTAL PROTEIN 6.3 GM/DL (6.4-8.2)
[2021-03-27] MEDS ORDERED: COMBIVENT RESPIMAT 100-20MCG INHALER 4GM INH PRN (09:45)
[2021-03-27 09:48] LABS: ATYPICAL LYMPH 10 % (0-5); BLAST CELLS 3 % (0-0); EOSINOPHILS 2 % (0-3); LYMPHOCYTES 12 % (16-44); MONOCYTES 6 % (0-5); NEUTROPHILS 57 % (28-66)
[2021-03-27 09:49] LABS: PLATELET ESTIMATE NORMAL (NORMAL)
[2021-03-27 10:02] LABS: RSV AMPLIFICATION NEGATIVE (NEGATIVE)
--- NOTE | 2021-03-27 10:38 | REP ---
INDICATION: SOB COMPARISON: 12/16/2020 TECHNIQUE: Axial noncontrast images from the thoracic inlet to the upper abdomen with coronal and sagittal reformations. This CT examination was performed using the following dose reduction techniques: Automated exposure control, adjustment of mA and/or kv according to the patient's size, and use of iterative reconstruction technique. FINDINGS: Chronic COPD/emphysematous changes are again appreciated. A diffuse superimposed acute reticulonodular infiltrative pattern with small coalescing areas of consolidation involving the lingula/basilar left upper lobe and bilateral lower lobes is appreciated and appears slightly progressive as compared to prior examination. No effusion. No pneumothorax. Tracheobronchial tree is patent. Reactive mediastinal and hilar lymph nodes are suggested. Further evaluation of the mediastinum demonstrates stable atherosclerotic changes to the thoracic aorta and coronary arteries without aortic aneurysm or cardiomegaly. No pericardial effusion. Musculoskeletal structures are stable again demonstrating healed rib fractures and age-related changes. Upper abdomen suggests cholelithiasis, right nephrolithiasis, and subtle renal hypodensities all of which appear similar to prior examination. IMPRESSION: Diffuse reticulonodular interstitial pneumonia pattern with small areas of atelectasis/consolidation at the bilateral bases (left greater than right). <Electronically signed by Mayo Bradshaw > 03/27/21 2152
[2021-03-27] MEDS ORDERED: cefTRIAXone SOD 2 GM in D5W MINI-BAG PLUS 50 ML IV ONE (12:00)
[2021-03-27] MEDS ORDERED: DEXTROSE 50% 50 ML SYRINGE IV PRN (12:55)
[2021-03-27] MEDS ORDERED: GLUCAGON INJ 1MG VIAL SC PRN (12:55)
[2021-03-27] MEDS ORDERED: LevoFLOXacin IV 750 MG in IV 1 EA IV SCH (12:55)
[2021-03-27] MEDS ORDERED: cefTRIAXone SOD 1 GM in D5W MINI-BAG PLUS 50 ML IV SCH (12:55)
[2021-03-27] MEDS ORDERED: GLUCOSE 4GM CHEW TABLET PO PRN (12:55)
[2021-03-27] MEDS ORDERED: HEPARIN SOD (PORCINE) 5000UNITS/ML 1ML VIAL/SYRINGE SC SCH (12:55)
[2021-03-27] MEDS ORDERED: ACETAMINOPHEN TAB 650MG DOSE (2X325MG) PO PRN (12:55)
[2021-03-27] MEDS ORDERED: ALBUTEROL 90 MCG/ACT 8GM HFA INHALER INH PRN (12:55)
[2021-03-27] MEDS ORDERED: DOXYCYCLINE HYCLATE 100 MG in D5W MINI-BAG PLUS 100 ML IV SCH (12:55)
[2021-03-27] MEDS ORDERED: POTASSIUM CHLORIDE 10 MEQ SR TABLET PO ONE (13:30)
[2021-03-27] MEDS ORDERED: MAG SULF 1GM/100ML (MAG RUN) 1 GM in IV 1 EA IV ONE (13:30)
[2021-03-27] MEDS ORDERED: SODIUM CHLORIDE 0.9% 1000ML IV STA (13:39)
--- NOTE | 2021-03-27 13:42 | HPEPDOC ---
General Date of Admission Mar 27, 2021 at 12:55 Date of Service: Mar 27, 2021 Chief Complaint The patient is a 70-year-old male admitted with a reason for visit of Cll, Hypoxia, Pneumonia. Source: Patient Exam Limitations: No limitations History of Present Illness Patient is 70 years old male with past medical history of CLL, type 2 diabetes, hypertension, hyperlipidemia, liver cirrhosis with chronic hepatitis C, Little's esophagus, vitamin D deficiency, low back pain due to discopathy, and BPH who presented to the hospital with cough and generalized weakness. Patient stated that he has been having cough with yellowish sputum for past few days associated with general weakness. Patient denied any fever or chills. Patient is active smoker, he smokes 1 pack in a day. In ER patient was found to have we have dyspnea, oxygen requirements increased to 5 L, tachycardia, white blood count of 26.4, bandemia of 10, BNP 770, creatinine 1.4. CT chest showed Diffuse reticulonodular interstitial pneumonia pattern with small areas of atelectasis/consolidation at the bilateral bases (left greater than right). Home Medications Scheduled Amlodipine Besylate (Amlodipine Besylate) 10 Mg Tab, 10 MG PO QHS, (Reported) Aspirin (Aspirin EC) 81 Mg Tablet.dr, 81 MG PO QHS, (Reported) Atorvastatin Calcium (Atorvastatin Calcium) 40 Mg Tab, 40 MG PO QHS, (Reported) Benazepril HCl (Benazepril HCl) 20 Mg Tablet, 20 MG PO DAILY, (Reported) Metformin HCl (Metformin HCl) 1,000 Mg Tab, 1,000 MG PO BID, (Reported) Omeprazole (Omeprazole) 40 Mg Cap, 40 MG PO DAILY, (Reported) Oxybutynin Chloride (Oxybutynin Chloride ER) 15 Mg Tab.er.24, 15 MG PO DAILY, (Reported) Tamsulosin Hcl (Tamsulosin HCl) 0.4 Mg Cap, 0.4 MG PO DAILY, (Reported) Umeclidinium [place] (Incruse Ellipta) 62.5 Mcg Blst.w.dev, 1 PUFF INH QHS, (Reported) Scheduled PRN Acetaminophen (Acetaminophen) 325 Mg Tablet, 650 MG PO Q4H PRN for PAIN LEVEL 1-4, (Reported) Albuterol Sulfate (Ventolin Hfa) 108 Mcg/Act Aer, 2 PUFF INH Q4-6HP PRN for SHORTNESS OF BREATH, (Reported) Guaifenesin (Mucinex) 600 Mg Tab.er.12h, 600 MG PO BID PRN for COUGH, (Reported) Torsemide (Torsemide) 10 Mg Tablet, 10 MG PO DAILY PRN for FLUID RETENTION, (Reported) Allergies Coded Allergies: No Known Allergies (Unverified , 11/28/18) Past Medical History Medical History CLL Type 2 diabetes Hypertension Hyperlipidemia Liver cirrhosis with chronic hepatitis C Little's esophagus vitamin D deficiency Low back pain due to discopathy BPH Surgical History Lumbar fusion Cervical fusion Umbilical hernia repair as a child EGD and colonoscopies Family History A sister of unknown unknown type of cancer in her 30s. Another sister had leukemia in childhood. Social History * Smoker: current smoker Alcohol: Denies Drugs: denies A-FIB/CHADSVASC A-FIB History Current/History of A-Fib/PAF?: No Current PO Anticoag Therapy: No Review of Systems Constitutional: Denies: Chills, Fever Eyes: Denies: Vision change ENT: Denies: Head Aches Skin: Denies: Rash Pulmonary: Reports: Dyspnea, Cough Cardiovascular: Denies: Chest Pain, Palpitations Gastrointestinal: Denies: Nausea Genitourinary: Denies: Dysuria Hematologic: Denies: Bruising Endocrine: Denies: Polydipsia Musculoskeletal: Denies: Neck Pain Neurological: Denies: Weakness Psych: Reports: Mood Normal Physical Examination General Exam: Positive: Alert, Cooperative Eye Exam: Positive: PERRLA ENT Exam: Positive: Atraumatic Neck Exam: Positive: Supple, JVD Chest Exam: Positive: Diminished Heart Exam: Positive: Tachycardic Telemetry: Positive: Sinus Abdomen Exam: Positive: Normal bowel sounds Extremity Exam: Positive: Clubbing; Negative: Cyanosis Skin Exam: Positive: Nl turgor and temperature Neuro Exam: Positive: Strength at 5/5 X4 ext Psych Exam: Positive: Mental status NL Vital Signs Vital Signs Date Time Temp Pulse Resp B/P (MAP) Pulse Ox O2 Delivery O2 Flow Rate FiO2 03/27/21 12:15 104 20 115/56 (75) 94 03/27/21 08:06 Nasal Cannula 5.0 03/27/21 08:03 98.0 Laboratory Data Labs 24H Laboratory Tests 2 03/27/21 08:46: POC Troponin I (Misc) 0.02 03/27/21 08:49: Neutrophils (%) (Auto) , Nucleated Red Blood Cells % (auto) 0.0, Neutrophils 57, Band Neutrophils 10, Lymphocytes (Manual) 12L, Monocytes (Manual) 6H, Eosin ophils (Manual) 2, Blastocytes 3H, Atypical Lymphocytes 10H, Red Blood Cell Morphology NORMAL, Platelet Estimate NORMAL, Anion Gap 4L, Glomerular Filtration Rate 49.8, Calcium Level 8.3L, Total Bilirubin 0.3, Direct Bilirubin 0.1, Aspartate Amino Transf (AST/SGOT) 11, Alanine Aminotransferase (ALT/SGPT) 15, Alkaline Phosphatase 97, Total Protein 6.3L, Albumin 2.7L, Albumin/Globulin Ratio 0.8, Coronavirus (COVID-19)(PCR) NEGATIVE, Influenza Type A (RT-PCR) NEGATIVE, Influenza Type B (RT-PCR) NEGATIVE, Respiratory Syncytial Virus (PCR) NEGATIVE 03/27/21 09:40: AZ-Der-E-Type Natriuretic Peptide 770H CBC/BMP Laboratory Tests 03/27/21 08:49 Assessment/Plan Patient is 70 years old male with past medical history of CLL, type 2 diabetes, hypertension, hyperlipidemia, liver cirrhosis with chronic hepatitis C, Little's esophagus, vitamin D deficiency, low back pain due to discopathy, and BPH who presented to the hospital with cough and generalized weakness. Patient stated that he has been having cough with yellowish sputum for past few days associated with general weakness. Patient denied any fever or chills. Patient is active smoker, he smokes 1 pack in a day. In ER patient was found to have we have dyspnea, oxygen requirements increased to 5 L, tachycardia, white blood count of 26.4, bandemia of 10, BNP 770, creatinine 1.4. CT chest showed Diffuse reticulonodular interstitial pneumonia pattern with small areas of atelectasis/c onsolidation at the bilateral bases (left greater than right). Problems (1) Sepsis Status: Acute Problem Text: Patient has leukocytosis, dyspnea, tachycardia Most likely secondary to pneumonia Patient immunocompromised due to CLL we will start Zosyn IV, vancomycin IV and doxycycline IV to cover atypicals Await blood culture, sputum culture (2) Acute hypoxemic respiratory failure Status: Acute Problem Text: Secondary to pneumonia Continue treatment with oxygen, will continue to monitor ABG, inhalers Appreciate/agree with consumer electronics merchandiser consult (3) Community acquired pneumonia Status: Acute Problem Text: Inhalers Continue antibiotic therapy Incentive spirometry (4) CLL (chronic lymphocytic leukemia) Status: Chronic Problem Text: Follow-up with oncologist in the outpatient settings (5) Diabetes mellitus Status: Chronic Problem Text: Insulin sliding scale Diabetes diet (6) Hypertension Status: Chronic Problem Text: Continue home meds (7) Hyperlipidemia Status: Chronic Problem Text: Continue statin (8) Barretts esophagus Status: Chronic Problem Text: Continue PPI (9) Diastolic CHF, chronic Status: Chronic Problem Text: Not in acute exacerbation Patient euvolemic (10) RANULFO (acute kidney injury) Status: Acute Problem Text: Most likely secondary to volume depletion Continue to monitor Torsemide on hold due to sepsis and RANULFO Plan / VTE VTE Prophylaxis Ordered?: Yes EDITH IRVIN DO Mar 27, 2021 13:42
[2021-03-27] MEDS ORDERED: TORS10TA3 PO (13:46)
[2021-03-27] MEDS ORDERED: INCR1INH INH (13:46)
[2021-03-27] MEDS ORDERED: APAP325T4 PO (13:46)
[2021-03-27] MEDS ORDERED: HOME MED LIST COMPLETE! XX SCH (13:50)
[2021-03-27] MEDS ORDERED: IPRATROPIUM 0.5MG/ALBUTEROL 2.5MG INH SOL UD 3ML (DUONEB) INH SCH (14:00)
[2021-03-27] MEDS: IPRATROPIUM 0.5MG/ALBUTEROL 2.5MG INH SOL UD 3ML (DUONEB) INH SCH ×3 (15:11→23:20)
[2021-03-27] MEDS: oxyBUTYnin *DITROPAN XL* 5 MG TABCR PO SCH (16:08)
[2021-03-27] MEDS: TAMSULOSIN 0.4 MG CAP PO SCH (16:08)
[2021-03-27] MEDS: PANTOPRAZOLE 40MG TAB (PROTONIX) PO SCH (16:08)
[2021-03-27] MEDS: PIPERACILLIN/TAZOBACTAM SOD 4.5 GM in D5W MINI-BAG PLUS 100 ML IV SCH ×2 (16:09→22:36)
[2021-03-27 16:15] LABS: ABG BASE EXCESS -1.6 (-2.0-2.0); ABG HCO3 28.4 MEQ/L (22.0-26.0); ABG PARTIAL PRESSURE CO2 75.7 mmHg (35.0-45.0); ABG PARTIAL PRESSURE O2 121.4 mmHg (75.0-100.0); ABG STANDARD HCO3 23.2 MEQ/L (22.0-26.0); ABG TOTAL CO2 30.7 MEQ/L (23.0-31.0); ABG pH (ARTERIAL) 7.192 UNITS (7.350-7.450)
[2021-03-27] MEDS ORDERED: VANCOMYCIN HCL 1,000 MG, VIAL MATE ADAPTER 1 EACH in NS 250 ML IV SCH (17:00)
--- NOTE | 2021-03-27 17:16 | ECGEPIP ---
[facility] - ED Test Date: 2021-03-27 Pat Name: FLACO BALL Department: Room: - Gender: Male Rn Paralegal: vc : 1950 Requested By: Amparo Mccormack Order Number: [id number] Reading MD: Estevan Shearer Measurements Intervals [place] Rate: 104 P: 67 MD: 132 QRS: 71 QRSD: 94 T: 61 QT: 338 QTc: 444 Interpretive Statements Sinus tachycardia previous tracing done 12-19-20 showed atrial ectopy Electronically Signed on 03-27-2021 17:15:59 EDT by Estevan Shearer
[2021-03-27] MEDS: HumaLOG INSULIN (NovoLOG) PER UNIT SC SCH ×2 (17:30→21:00)
[2021-03-27] MEDS ORDERED: VANCOMYCIN HCL 750 MG, VIAL MATE ADAPTER 1 EACH in NS 250 ML IV ONE (18:00)
--- NOTE | 2021-03-27 18:27 | CR.PDOC ---
General Date of Consultation: Mar 27, 2021 Referring Provider: EDITH IRVIN DO Primary Care Physician: MANOJ LUONG PA-C Attending Physician: EDITH IRVIN DO Consultation REASON FOR CONSULTATION/CHIEF COMPLAINT: As of breath and cough. HISTORY OF PRESENT ILLNESS: This is a 70-year-old gentleman with past medical history of CLL in remission, diabetes, hypertension, hyperlipidemia, cirrhosis secondary to chronic hepatitis C,. Esophagus, BPH, low back pain who presented to the emergency department today with complaint of shortness of breath and cough. No meaningful history was able to obtain as patient is very drowsy and difficult to stay awake. He is currently on BiPAP. Upon admission to the hospital, patient was found to be profoundly hypoxic requiring 5 L oxygen of nasal cannula. He slowly progressed to require 10 L and BiPAP. Work-up revealed s ignificant leukocytosis with bandemia. He also has RANULFO. Respiratory viral panel was negative for COVID-19, RSV and influenza. CT scan of the chest done showed areas of tree-in-bud pattern that is strongly suggestive of bronchoalveolar pneumonia. ABG showed significant hypercapnia respiratory aci dosis. Patient was started on antibiotic including doxycycline and Zosyn. He was previously here back in December 2020 with similar presentation in which he was treated with antibiotic and sent home with 2 L oxygen nasal cannula. No family member was able to provide any collateral information. ALLERGIES: Please see below. HOME MEDICATIONS: Please see below. PAST MEDICAL HISTORY: CLL Type 2 diabetes Hypertension Hyperlipidemia Liver cirrhosis with chronic hepatitis C Little's esophagus vitamin D deficiency Low back pain due to discopathy BPH PAST SURGICAL HISTORY: Lumbar fusion Cervical fusion Umbilical hernia repair as a child EGD and colonoscopies FAMILY HISTORY: A sister of unknown unknown type of cancer in her 30s. Another sister had leukemia in childhood. SOCIAL HISTORY: Patient was a smoker of 30 years. There was no reported history of illicit drug use or alcohol use. REVIEW OF SYSTEMS: Unable to obtain as patient is extremely drowsy and hard to stay awake. PHYSICAL EXAMINATION: VITAL SIGNS: Please see below. GENERAL APPEARANCE: Patient is chronically ill-appearing. He is obtunded but able to be aroused by physical stimuli. HEENT: There is no evidence of cervical adenopathy or JVD. RESPIRATORY: Very subtle expiratory wheeze but diminished breath sounds bilaterally. Barrel shaped chest. CARDIOVASCULAR: Regular rate rhythm with no evidence of murmur. ABDOMEN: Soft nontender hypoactive bowel sounds. EXTREMITIES: No evidence of clubbing or lower extremity pedal edema. NEUROLOGICAL: Gross neuro examination is intact. PSYCHIATRIC: Unable to be assessed. Bedside echocardiogram done shows no evidence of hypokinesis of the ventricles. Right ventricle is normal and there was no dilatation. IVC is dilated but somewhat collapsible on inspiration. LABORATORY DATA: Please see below. ASSESSMENT/PLAN: This is a 70-year-old gentleman with past medical history of CLL in remission, diabetes, hypertension, hyperlipidemia, cirrhosis secondary to chronic hepatitis C,. Esophagus, BPH, low back pain who presented to the emergency department today with complaint of shortness of breath and cough. 1. Hypoxic hypercapnic respiratory failure. 2. Community-acquired pneumonia/bronchoalveolar pneumonia 3. COPD exacerbation 4. Severe sepsis secondary to community-acquired pneumonia 5. RANULFO 6. Metabolic encephalopathy Plan: -Continue with BiPAP 07/17. Keep oxygen saturation above 80%. Repeat ABG in 1 hour and assess for clinical response on BiPAP. -Given the severity of his illness, recommend to escalate antibiotic to include vancomycin, Zosyn, azithromycin. -Obtain strep pneumo urinary antigen and Legionella urinary antigen. Sputum culture for Gram stain and culture plus AFB. -We will start patient on methylprednisolone. Nebulizer treatment [id number]. -Low threshold for intubation. Vital Signs/I&O Vital Signs Date Time Temp Pulse Resp B/P (MAP) Pulse Ox O2 Delivery O2 Flow Rate FiO2 03/27/21 17:30 100 34 109/55 (73) 100 NIPPV (BIPAP/CPAP) 40 03/27/21 17:10 98.0 03/27/21 16:00 8.0 Laboratory Data Labs 24H Laboratory Tests 2 03/27/21 08:46: POC Troponin I (Misc) 0.02 03/27/21 08:49: Neutrophils (%) (Auto) , Nucleated Red Blood Cells % (auto) 0.0, Neutrophils 57, Band Neutrophils 10, Lymphocytes (Manual) 12L, Monocytes (Manual) 6H, Eosinophils (Manual) 2, Blastocytes 3H, Atypical Lymphocytes 10H, Red Blood Cell Morphology NORMAL, Platelet Estimate NORMAL, Anion Gap 4L, Glomerular Filtration Rate 49.8, Calcium Level 8.3L, Total Bilirubin 0.3, Direct Bilirubin 0.1, Aspartate Amino Transf (AST/SGOT) 11, Alanine Aminotransferase (ALT/SGPT) 15, Alkaline Phosphatase 97, Total Protein 6.3L, Albumin 2.7L, Albumin/Globulin Ratio 0.8, Coronavirus (COVID-19)(PCR) NEGATIVE, Influenza Type A (RT-PCR) NEGATIVE, Influenza Type B (RT-PCR) NEGATIVE, Respiratory Syncytial Virus (PCR) NEGATIVE 03/27/21 09:40: VX-Ejp-I-Type Natriuretic Peptide 770H 03/27/21 13:36: Lactic Acid Level 1.0 03/27/21 16:08: Blood Gas Bicarbonate Standard 23.2, Arterial Blood pH 7.192*L, Arterial Blood Partial Pressure CO2 75.7*H, Arterial Blood Partial Pressure O2 121.4H, Arterial Blood Total CO2 30.7, Arterial Blood HCO3 28.4H, Arterial Blood Base Excess - 1.6, Arterial Blood Oxygen Saturation 98.0 03/27/21 16:34: Bedside Glucose (Misc Panel) 165H 03/27/21 17:44: CBC/BMP Laboratory Tests 03/27/21 08:49 Microbiology Microbiology 03/27/21 Blood Culture, Received Pending 03/27/21 Blood Culture, Received Pending Allergies Coded Allergies: No Known Allergies (Unverified , 11/28/18) Home Medications Scheduled Amlodipine Besylate (Amlodipine Besylate) 10 Mg Tab, 10 MG PO QHS, (Reported) Aspirin (Aspirin EC) 81 Mg Tablet.dr, 81 MG PO QHS, (Reported) Atorvastatin Calcium (Atorvastatin Calcium) 40 Mg Tab, 40 MG PO QHS, (Reported) Benazepril HCl (Benazepril HCl) 20 Mg Tablet, 20 MG PO DAILY, (Reported) Metformin HCl (Metformin HCl) 1,000 Mg Tab, 1,000 MG PO BID, (Reported) Omeprazole (Omeprazole) 40 Mg Cap, 40 MG PO DAILY, (Reported) Oxybutynin Chloride (Oxybutynin Chloride ER) 15 Mg Tab.er.24, 15 MG PO DAILY, (Reported) Tamsulosin Hcl (Tamsulosin HCl) 0.4 Mg Cap, 0.4 MG PO DAILY, (Reported) Umeclidinium [place] (Incruse Ellipta) 62.5 Mcg Blst.w.dev, 1 PUFF INH QHS, (Reported) Scheduled PRN Acetaminophen (Acetaminophen) 325 Mg Tablet, 650 MG PO Q4H PRN for PAIN LEVEL 1- 4, (Reported) Albuterol Sulfate (Ventolin Hfa) 108 Mcg/Act Aer, 2 PUFF INH Q4-6HP PRN for SHORTNESS OF BREATH, (Reported) Guaifenesin (Mucinex) 600 Mg Tab.er.12h, 600 MG PO BID PRN for COUGH, (Reported) Torsemide (Torsemide) 10 Mg Tablet, 10 MG PO DAILY PRN for FLUID RETENTION, (Reported) ESTEFANI CASTREJON MD Mar 27, 2021 18:27
[2021-03-27] MEDS: methylPREDNISolone 40MG 1ML VIAL IV SCH (18:48)
[2021-03-27] MEDS: BUDESONIDE 0.25 MG/2 ML INHALATION SUSPENSION INH SCH (19:03)
[2021-03-27 21:17] LABS: ABG BASE EXCESS -1.8 (-2.0-2.0); ABG HCO3 27.8 MEQ/L (22.0-26.0); ABG O2 SATURATION 95.2 % (95.0-99.0); ABG PARTIAL PRESSURE O2 77.7 mmHg (75.0-100.0); ABG STANDARD HCO3 22.9 MEQ/L (22.0-26.0)
[2021-03-27 21:18] LABS: ABG PARTIAL PRESSURE CO2 72.8 mmHg (35.0-45.0)
[2021-03-27] MEDS: DOXYCYCLINE HYCLATE 100 MG in D5W MINI-BAG PLUS 100 ML IV SCH (21:19)
[2021-03-27] MEDS: ASPIRIN 81MG ENTERIC TABLET PO SCH (21:37)
[2021-03-27] MEDS: ATORVASTATIN 20 MG TAB PO SCH (21:37)
[2021-03-27] MEDS: HEPARIN SOD (PORCINE) 5000UNITS/ML 1ML VIAL/SYRINGE SQ SCH (21:37)
[2021-03-28] VITALS (14 sets, daily range): BP systolic 101–138; BP diastolic 55–81
[2021-03-28] MEDS: IPRATROPIUM 0.5MG/ALBUTEROL 2.5MG INH SOL UD 3ML (DUONEB) INH SCH ×5 (03:22→19:37)
[2021-03-28] MEDS: PIPERACILLIN/TAZOBACTAM SOD 4.5 GM in D5W MINI-BAG PLUS 100 ML IV SCH ×4 (04:41→22:55)
[2021-03-28 05:43] LABS: HEMATOCRIT 38.7 % (42.0-52.0); HEMOGLOBIN 11.4 g/dl (13.5-17.5); MEAN CORPUSCULAR HEMOGLOBIN 29.7 pg (27.0-33.0); MEAN CORPUSCULAR HGB CONC 29.5 g/dl (32.0-36.5); MEAN CORPUSCULAR VOLUME 100.8 fl (80.0-96.0); PLATELET COUNT, AUTOMATED 240 10^3/uL (150-450); RED BLOOD COUNT 3.84 10^6/uL (4.30-6.10); WHITE BLOOD COUNT 17.4 10^3/uL (4.0-10.0)
[2021-03-28 06:17] LABS: ALBUMIN 2.4 GM/DL (3.2-5.2); ALT/SGPT 13 U/L (12-78); BILIRUBIN,TOTAL 0.3 MG/DL (0.2-1.0); BLOOD UREA NITROGEN 20 MG/DL (7-18); CALCIUM LEVEL 7.6 MG/DL (8.8-10.2); CARBON DIOXIDE LEVEL 29 MEQ/L (21-32); CHLORIDE LEVEL 107 MEQ/L (98-107); CREATININE FOR GFR 1.12 MG/DL (0.70-1.30); GLOMERULAR FILTRATION RATE > 60.0 (>49); GLUCOSE, FASTING 142 MG/DL (70-100); MAGNESIUM LEVEL 1.8 MG/DL (1.8-2.4); POTASSIUM SERUM 4.6 MEQ/L (3.5-5.1); SODIUM LEVEL 140 MEQ/L (136-145); TOTAL PROTEIN 5.8 GM/DL (6.4-8.2)
[2021-03-28] MEDS: BUDESONIDE 0.25 MG/2 ML INHALATION SUSPENSION INH SCH ×2 (07:16→19:37)
[2021-03-28] MEDS: HumaLOG INSULIN (NovoLOG) PER UNIT SC SCH ×4 (07:30→20:32)
[2021-03-28] MEDS ORDERED: TIOTROPIUM INHALER/CAPSULE (SPIRIVA) INH SCH (08:00)
[2021-03-28 08:08] LABS: ABG BASE EXCESS -0.4 (-2.0-2.0); ABG HCO3 27.1 MEQ/L (22.0-26.0); ABG O2 SATURATION 94.1 % (95.0-99.0); ABG PARTIAL PRESSURE CO2 58.1 mmHg (35.0-45.0); ABG TOTAL CO2 28.9 MEQ/L (23.0-31.0); ABG pH (ARTERIAL) 7.287 UNITS (7.350-7.450)
[2021-03-28] MEDS: HEPARIN SOD (PORCINE) 5000UNITS/ML 1ML VIAL/SYRINGE SQ SCH ×2 (08:21→20:28)
[2021-03-28] MEDS: methylPREDNISolone 40MG 1ML VIAL IV SCH ×2 (08:21→20:28)
[2021-03-28] MEDS: DOXYCYCLINE HYCLATE 100 MG in D5W MINI-BAG PLUS 100 ML IV SCH (08:21)
[2021-03-28 09:32] LABS: VANCOMYCIN RANDOM 11.6 UG/ML
[2021-03-28] MEDS: oxyBUTYnin *DITROPAN XL* 5 MG TABCR PO SCH (09:47)
[2021-03-28] MEDS: TAMSULOSIN 0.4 MG CAP PO SCH (09:47)
[2021-03-28] MEDS: PANTOPRAZOLE 40MG TAB (PROTONIX) PO SCH (09:47)
[2021-03-28] MEDS: guaiFENesin ER 600 MG TAB PO PRN ×2 (10:02→20:25)
[2021-03-28] MEDS ORDERED: VANCOMYCIN HCL 1,000 MG, VIAL MATE ADAPTER 1 EACH in NS 250 ML IV SCH (11:00)
[2021-03-28] MEDS: AZITHROMYCIN INJ 500 MG, VIAL MATE ADAPTER 1 EACH in NS 250 ML IV SCH (11:35)
--- NOTE | 2021-03-28 11:41 | IPNPDOC ---
Text Note Date of Service The patient was seen on 03/28/21. NOTE Subjective: Patient is a 70-year-old male with past medical history of CLL, type 2 diabetes, hypertension, hyperlipidemia, liver cirrhosis with chronic otitis C, Little's esophagus, vitamin D deficiency, low back pain due to discopathy, and BPH presented to hospital with cough and generalized weakness. Patient says he is feeling slightly better although he is still on BiPAP. Patient was asking for a drink of water. Patient is feeling better than he stated he felt when he initially came into the hospital. Review of systems: General: Patient denies fevers HEENT: Patient denies headaches Cardiovascular: Patient denies chest pain Respiratory: Patient denies shortness of breath, cough GI: Patient denies abdominal pain, nausea, vomiting, diarrhea : Patient denies increased frequency or pain with urination Extremities: Patient denies swelling or pain in extremities Neurological: Patient denies numbness or tingling in legs Physical exam: Vitals: See below General: Alert and oriented male patient who was wearing BiPAP mask when I walked in the room. Patient not appear to be in any acute distress. HEENT: Normocephalic, atraumatic, moist mucous membranes. Neck: No lymphadenopathy or thyromegaly Cardiac: Regular rate and rhythm, no murmurs, normal S1, normal S2 Pulm: Expiratory wheezes as well as inspiratory rhonchi heard throughout the lung field. Abd: Nondistended, nontender to palpation, normal bowel sounds Ext: No edema bilateral lower extremities Labs: See below Imaging: No new imaging has been performed Assessment/plan: 70-year-old male with past medical history of CLL, type 2 diabetes, hypertension, hyperlipidemia, liver cirrhosis with chronic hepatitis C, Little's esophagus, vitamin D deficiency, low back pain due to discopathy, and BPH presented to hospital with cough and generalized weakness. Patient was found to have diffuse reticulonodular interstitial pneumonia pattern on CT of the chest 1. Sepsis patient has a leukocytosis, dyspnea and was tachycardic. This is most likely secondary to pneumonia. Patient was initially started on IV Zosyn and vancomycin and doxycycline. Patient's MRSA screen was negative so vancomycin has been discontinued. Patient will be switched to azithromycin for better atypical coverage. 2. Acute hypoxemic, hypercarbic respiratory failure. This is most likely secondary to pneumonia. Patient was also shown to have respiratory acidosis with hypercarbia. Patient has been on BiPAP and is slowly improving. Patient be taken off BiPAP for short time is for a drink today but should remain on for the majority of the day. 3. Community-acquired pneumonia. Patient will continue with antibiotic therapy as above. 4. CLL. Patient will continue to follow-up with oncology as outpatient se tting. 5. Diabetes mellitus. Sliding scale insulin and consistent carb diet. 6. Hypertension. Continue with home medications. 7. Hyperlipidemia. Continue home medications. 8. Little's esophagus. Continue home medications. 9. Heart failure with preserved ejection fraction. Not in acute exacerbation. Continue home medications. 10. Acute kidney injury. Most likely secondary to volume depletion. We will continue to monitor. This has improved. DVT Prophylaxis: Heparin Disposition: Pending improvement in respiratory status VS,Marc, I+O VS, Antonioe, I+O Laboratory Tests 03/28/21 04:59 Vital Signs Date Time Temp Pulse Resp B/P (MAP) Pulse Ox O2 Delivery O2 Flow Rate FiO2 03/28/21 07:17 40 03/28/21 05:00 95 116/61 (79) 94 NIPPV (BIPAP/CPAP) 03/28/21 04:00 97.6 20 03/27/21 16:00 8.0 I&O- Last 24 Hours up to 6 AM 03/28/21 06:00 Intake Total 1950 ml Output Total 825 ml Balance 1125 ml OLLIE SAAVEDRA DO Mar 28, 2021 11:41
[2021-03-28] MEDS ORDERED: dexameTHASONE 4 MG/ML 1ML VIAL (J1100 PER 1MG) IV SCH (12:00)
[2021-03-28] MEDS: BENZONATATE 100 MG CAP PO PRN ×2 (14:02→20:27)
--- NOTE | 2021-03-28 14:13 | IPNPDOC ---
Subjective Date Seen The patient was seen on 03/28/21. Subjective Chief Complaint/HPI Patient wants to get the BiPAP off his face today. He is experiencing significant coughing. However he admits to improvement in his shortness of breath today. He denies of fever, chills, hemoptysis, chest pain, orthopnea, lower extremity swelling. General: Denies: Chills, Fatigue Constitutional: Denies: Fever Skin: Denies: Rash Pulmonary: Reports: Dyspnea, Cough; Denies: Pleuritic Chest Pain Cardiovascular: Denies: Chest Pain, Orthopnea, Edema Gastrointestinal: Denies: Nausea, Vomiting, Diarrhea Neurological: Denies: Weakness, Numbness Objective Physical Examination General Exam: Positive: Alert, Cooperative, No Acute Distress Eye Exam: Positive: Sclera icteric ENT Exam: Positive: Atraumatic Neck Exam: Positive: Supple; Negative: JVD Chest Exam: Positive: Rales, Wheezing, Other (Increased AP diameter.) Heart Exam: Positive: Rate Normal, Regular Rhythm Abdomen Exam: Positive: Normal bowel sounds Extremity Exam: Negative: Cyanosis, Edema Neuro Exam: Positive: Normal Speech Psych Exam: Positive: Mental status NL Assessment /Plan Assessment This is a 70-year-old gentleman with past medical history of CLL in remission, diabetes, hypertension, hyperlipidemia, cirrhosis secondary to chronic hepatitis C,. Esophagus, BPH, low back pain who presented to the emergency department today with complaint of shortness of breath and cough. 1. Hypoxic hypercapnic respiratory failure. 2. Community-acquired pneumonia/bronchoalveolar pneumonia 3. COPD exacerbation 4. Severe sepsis secondary to community-acquired pneumonia 5. RANULFO 6. Metabolic encephalopathy Plan/VTE VTE Prophylaxis Ordered?: Yes Plan -Improvement in his ABG today and clinical status. BiPAP setting was decreased to 10/5. However given rapid clinical improvement, I think we can potentially hold off putting him back on BiPAP. -Continue with systemic corticosteroid, Zosyn and azithromycin for community- acquired pneumonia and COPD exacerbation. Smoking cessation is strongly encouraged as patient is smoking up to the point when he came to the hospital. -Follow-up sputum culture, AFB, urinary Legionella and strep pneumo antigen, mycoplasma IgM. Tailor antibiotics as appropriate. -We'll continue to follow intermittently. Disposition Can potentially be transferred to ICU this afternoon. VS, I&O, 24H, Fishbone Vital Signs/I&O Vital Signs Date Time Temp Pulse Resp B/P (MAP) Pulse Ox O2 Delivery O2 Flow Rate FiO2 03/28/21 08:00 35 03/28/21 05:00 95 116/61 (79) 94 NIPPV (BIPAP/CPAP) 03/28/21 04:00 97.6 20 03/27/21 16:00 8.0 I&O- Last 24 Hours up to 6 AM 03/28/21 06:00 Intake Total 1950 ml Output Total 825 ml Balance 1125 ml Laboratory Data 24H LABS Laboratory Tests 2 03/27/21 16:08: Blood Gas Bicarbonate Standard 23.2, Arterial Blood pH 7.192*L, Arterial Blood Partial Pressure CO2 75.7*H, Arterial Blood Partial Pressure O2 121.4H, Arterial Blood Total CO2 30.7, Arterial Blood HCO3 28.4H, Arterial Blood Base Excess - 1.6, Arterial Blood Oxygen Saturation 98.0 03/27/21 16:34: Bedside Glucose (Misc Panel) 165H 03/27/21 17:44: Procalcitonin 0.50 03/27/21 18:56: Methicillin-Resist S.aureus DNA PCR NOT DETECTED 03/27/21 21:02: Blood Gas Bicarbonate Standard 22.9, Arterial Blood pH 7.200*L, Arterial Blood Partial Pressure CO2 72.8*H, Arterial Blood Partial Pressure O2 77.7, Arterial Blood Total CO2 30.0, Arterial Blood HCO3 27.8H, Arterial Blood Base Excess - 1.8, Arterial Blood Oxygen Saturation 95.2 03/27/21 21:25: Bedside Glucose (Misc Panel) 152H 03/28/21 04:59: Nucleated Red Blood Cells % (auto) 0.0, Anion Gap 4L, Glomerular Filtration Rate > 60.0, Calcium Level 7.6L, Magnesium Level 1.8, Total Bilirubin 0.3, Aspartate Amino Transf (AST/SGOT) 10, Alanine Aminotransferase (ALT/SGPT) 13, Alkaline Phosphatase 93, Total Protein 5.8L, Albumin 2.4L, Albumin/Globulin Ratio 0.7, Random Vancomycin Level 11.6 03/28/21 07:52: Blood Gas Bicarbonate Standard 24.0, Arterial Blood pH 7.287L, Arterial Blood Partial Pressure CO2 58.1H, Arterial Blood Partial Pressure O2 71.0L, Arterial Blood Total CO2 28.9, Arterial Blood HCO3 27.1H, Arterial Blood Base Excess - 0.4, Arterial Blood Oxygen Saturation 94.1L 03/28/21 08:08: Bedside Glucose (Misc Panel) 142H 03/28/21 10:41: 03/28/21 12:22: Bedside Glucose (Misc Panel) 199H CBC/BMP Laboratory Tests 03/28/21 04:59 Microbiology Microbiology 03/28/21 Acid Fast Stain - Final, Resulted 03/28/21 Mycobacterial Culture, Resulted Pending 03/27/21 Blood Culture, Received Pending 03/27/21 Blood Culture, Received Pending ESTEFANI CASTREJON MD Mar 28, 2021 14:13
[2021-03-28] MEDS: ASPIRIN 81MG ENTERIC TABLET PO SCH (20:25)
[2021-03-28] MEDS: ATORVASTATIN 20 MG TAB PO SCH (20:26)
[2021-03-29] VITALS (10 sets, daily range): BP systolic 128–149; BP diastolic 60–80
[2021-03-29] MEDS: BENZONATATE 100 MG CAP PO PRN ×2 (02:14→15:25)
[2021-03-29] MEDS: PIPERACILLIN/TAZOBACTAM SOD 4.5 GM in D5W MINI-BAG PLUS 100 ML IV SCH ×4 (03:34→21:06)
[2021-03-29] MEDS: IPRATROPIUM 0.5MG/ALBUTEROL 2.5MG INH SOL UD 3ML (DUONEB) INH SCH ×6 (04:00→20:38)
[2021-03-29 04:58] LABS: HEMATOCRIT 39.6 % (42.0-52.0); HEMOGLOBIN 11.9 g/dl (13.5-17.5); MEAN CORPUSCULAR HEMOGLOBIN 29.1 pg (27.0-33.0); MEAN CORPUSCULAR HGB CONC 30.1 g/dl (32.0-36.5); MEAN CORPUSCULAR VOLUME 96.8 fl (80.0-96.0); PLATELET COUNT, AUTOMATED 299 10^3/uL (150-450); RED BLOOD COUNT 4.09 10^6/uL (4.30-6.10); WHITE BLOOD COUNT 23.6 10^3/uL (4.0-10.0)
[2021-03-29] MEDS: ACETAMINOPHEN 650MG ER TAB (TYLENOL ARTHRITIS) PO SCH ×3 (05:49→22:00)
[2021-03-29] MEDS: HumaLOG INSULIN (NovoLOG) PER UNIT SC SCH ×5 (07:30→21:00)
[2021-03-29] MEDS: methylPREDNISolone 40MG 1ML VIAL IV SCH (07:55)
[2021-03-29] MEDS: HEPARIN SOD (PORCINE) 5000UNITS/ML 1ML VIAL/SYRINGE SQ SCH ×2 (07:56→21:07)
[2021-03-29] MEDS: TAMSULOSIN 0.4 MG CAP PO SCH (07:57)
[2021-03-29] MEDS: PANTOPRAZOLE 40MG TAB (PROTONIX) PO SCH (07:57)
[2021-03-29] MEDS: guaiFENesin ER 600 MG TAB PO PRN ×2 (07:57→21:13)
[2021-03-29] MEDS: oxyBUTYnin *DITROPAN XL* 5 MG TABCR PO SCH (08:01)
[2021-03-29] MEDS: BUDESONIDE 0.25 MG/2 ML INHALATION SUSPENSION INH SCH ×2 (08:08→20:38)
[2021-03-29] MEDS ORDERED: PREGABALIN 50 MG CAP (LYRICA) PO ONE (08:10)
--- NOTE | 2021-03-29 12:13 | IPNPDOC ---
Text Note Date of Service The patient was seen on 03/29/21. NOTE Subjective: Patient is a 70-year-old male who presented to the hospital with cough and generalized weakness. Patient is doing much better today. Patient did not need BiPAP therapy throughout the day yesterday and overnight. Patient says he is feeling much better than when he came into the hospital. Patient states that he has been able to eat and drink without any difficulty. Patient is otherwise doing well. Review of systems: General: Patient denies fevers HEENT: Patient denies headaches Cardiovascular: Patient denies chest pain Respiratory: Patient reports improvement in his shortness of breath and his cough GI: Patient denies abdominal pain, nausea, vomiting, diarrhea : Patient denies increased frequency or pain with urination Extremities: Patient denies swelling or pain in extremities Neurological: Patient denies numbness or tingling in legs Physical exam: Vitals: See below General: Alert and oriented male patient who was wearing nasal cannula oxygen when I walked in the room. Patient was sitting up in bed and did not appear to be in any acute distress. HEENT: Normocephalic, atraumatic, moist mucous membranes. Neck: No lymphadenopathy or thyromegaly Cardiac: Regular rate and rhythm, no murmurs, normal S1, normal S2 Pulm: Scattered end expiratory wheezing as well as inspiratory rhonchi heard throughout the lung field. Abd: Nondistended, nontender to palpation, normal bowel sounds Ext: No edema bilateral lower extremities Labs: See below Imaging: No new imaging has been performed Assessment/plan: 70-year-old male with past medical history of CLL, type 2 diabetes, hypertension, hyperlipidemia, liver cirrhosis with chronic hepatitis C, Little's esophagus, vitamin D deficiency, low back pain due to discopathy, and BPH who presented to hospital with cough and generalized weakness. Patient was found to have diffuse reticular nodular interstitial pneumonia pattern on CT of the chest. 1. Sepsis. Patient had leukocytosis, dyspnea or and was tachycardic. This is most likely secondary to pneumonia. Patient is on IV Zosyn and azithromycin. Patient sepsis has resolved and we will continue to monitor and treat the patient as above. 2. Acute hypoxemic hypercarbic respiratory failure. Most likely secondary to pneumonia with a component of undiagnosed COPD. Patient has improved and no longer needs BiPAP therapy at this time. 3. Community-acquired pneumonia. Patient will continue with antibiotics as above. 4. COPD exacerbation. Patient does not carry diagnosis of COPD however, his wheezing on exam combined with the CT findings that are consistent with COPD most likely means the patient has COPD. Patient is currently being treated with methylprednisolone 40 mg IV twice daily. Patient can be switched over to p.o. prednisone at this time. Patient can be sent home on controller inhaler therapy and follow-up outpatient. 5. CLL. Patient will continue to follow-up with oncology as an outpatient. 6. Diabetes mellitus. Sliding scale insulin and consistent carb diet. 7. Hypertension. Continue with home medications. 8. Hyperlipidemia. Continue home medications. 9. Little's esophagus. Continue home medications. 10. Heart failure preserved ejection fraction. Not in acute exacerbation. Continue home medications. 11. Acute kidney injury. Most likely secondary to volume depletion. We will continue to monitor and this has improved. DVT Prophylaxis: Heparin Disposition: Pending clinical improvement, possible discharge in the next 24 to 48 hours VS,Marc, I+O VS, Antonioe, I+O Laboratory Tests 03/29/21 04:31 Vital Signs Date Time Temp Pulse Resp B/P (MAP) Pulse Ox O2 Delivery O2 Flow Rate FiO2 03/29/21 11:29 86 24 03/29/21 08:00 3.0 03/29/21 08:00 96.9 139/66 (90) 92 High Flow Cannula 03/28/21 12:00 30 I&O- Last 24 Hours up to 6 AM 03/29/21 06:00 Intake Total 2820 ml Output Total 2625 ml Balance 195 ml OLLIE SAAVEDRA DO Mar 29, 2021 12:13
[2021-03-29] MEDS: AZITHROMYCIN INJ 500 MG, VIAL MATE ADAPTER 1 EACH in NS 250 ML IV SCH (12:22)
[2021-03-29] MEDS: PREGABALIN 50 MG CAP (LYRICA) PO SCH (16:23)
[2021-03-29] MEDS: ASPIRIN 81MG ENTERIC TABLET PO SCH (21:08)
[2021-03-29] MEDS: ATORVASTATIN 20 MG TAB PO SCH (21:09)
[2021-03-30] MEDS: BENZONATATE 100 MG CAP PO PRN ×2 (02:48→09:02)
[2021-03-30] MEDS: PIPERACILLIN/TAZOBACTAM SOD 4.5 GM in D5W MINI-BAG PLUS 100 ML IV SCH (04:15)
[2021-03-30] MEDS: ACETAMINOPHEN 650MG ER TAB (TYLENOL ARTHRITIS) PO SCH (04:39)
[2021-03-30] MEDS: IPRATROPIUM 0.5MG/ALBUTEROL 2.5MG INH SOL UD 3ML (DUONEB) INH SCH ×5 (04:39→15:00)
[2021-03-30 06:49] VITALS: O2SAT 88
[2021-03-30] MEDS: BUDESONIDE 0.25 MG/2 ML INHALATION SUSPENSION INH SCH (07:27)
[2021-03-30] MEDS ORDERED: LevoFLOXacin 750 MG TABLET PO SCH (08:30)
[2021-03-30 08:39] LABS: HEMATOCRIT 39.8 % (42.0-52.0); HEMOGLOBIN 12.4 g/dl (13.5-17.5); MEAN CORPUSCULAR HEMOGLOBIN 29.7 pg (27.0-33.0); MEAN CORPUSCULAR HGB CONC 31.2 g/dl (32.0-36.5); MEAN CORPUSCULAR VOLUME 95.4 fl (80.0-96.0); PLATELET COUNT, AUTOMATED 332 10^3/uL (150-450); RED BLOOD COUNT 4.17 10^6/uL (4.30-6.10); WHITE BLOOD COUNT 22.9 10^3/uL (4.0-10.0)
[2021-03-30] MEDS ORDERED: AZITHROMYCIN 250MG TABLET PO SCH (09:00)
[2021-03-30] MEDS: HumaLOG INSULIN (NovoLOG) PER UNIT SC SCH ×2 (09:00→11:59)
[2021-03-30] MEDS ORDERED: predniSONE 20 MG TAB PO SCH (09:00)
[2021-03-30] MEDS: HEPARIN SOD (PORCINE) 5000UNITS/ML 1ML VIAL/SYRINGE SQ SCH (09:01)
[2021-03-30] MEDS: oxyBUTYnin *DITROPAN XL* 5 MG TABCR PO SCH (09:01)
[2021-03-30] MEDS: PREGABALIN 50 MG CAP (LYRICA) PO SCH (09:01)
[2021-03-30] MEDS: guaiFENesin ER 600 MG TAB PO PRN (09:02)
[2021-03-30] MEDS: PANTOPRAZOLE 40MG TAB (PROTONIX) PO SCH (09:02)
[2021-03-30] MEDS: TAMSULOSIN 0.4 MG CAP PO SCH (09:02)
[2021-03-30] MEDS ORDERED: LEVO750T13 PO (11:31)
[2021-03-30] MEDS ORDERED: PRED20TA PO (11:31)
[2021-03-30 11:38] VITALS: O2SAT 90
--- NOTE | 2021-03-30 12:42 | DS.PDOC ---
Discharge Summary General Date of Admission Mar 27, 2021 at 12:55 Date of Discharge 03/30/2021 Primary Care Physician: MANOJ LUONG PA-C Attending Physician: OLLIE SAAVEDRA DO Specialist/Consultants Involve: ESTEFANI CASTREJON MD Discharge Summary PROCEDURES PERFORMED DURING STAY: None. ADMITTING DIAGNOSES: 1. Sepsis most likely secondary to pneumonia 2. Acute hypoxemic respiratory failure 3. Community-acquired pneumonia 4. Chronic lymphocytic leukemia 5. Diabetes mellitus 6. Hypertension 7. Hyperlipidemia 8. Little's esophagus 9. Diastolic congestive heart failure, chronic 10. Acute kidney injury. DISCHARGE DIAGNOSES: 1. Sepsis most likely secondary to pneumonia, resolved 2. Acute hypoxemic hypercarbic respiratory failure 3. Community-acquired pneumonia, improved 4. Chronic lymphocytic leukemia 5. Diabetes mellitus 6. Hypertension 7. Hyperlipidemia 8. Little's esophagus 9. Diastolic congestive heart failure, chronic 10. Acute kidney injury. 11. COPD exacerbation COMPLICATIONS/CHIEF COMPLAINT: Cll, Hypoxia, Pneumonia. HISTORY OF PRESENT ILLNESS: Patient is a 70-year-old male with a history of CLL, type 2 diabetes, hypertension, hyperlipidemia, liver cirrhosis with chronic otitis C, Little's esophagus, vitamin D deficiency, low back pain due to discopathy, and BPH who presented to the hospital with cough and generalized weakness. Patient stated that he has been having a cough with yellowish sputum the past few days associated general weakness. Patient denies any fevers or chills. Patient is an active smoker and smokes about a pack a day. In the ER, patient was found to have dyspnea, oxygen requirements increased to 5 L. Patient was tachycardic with a leukocytosis of 26.4 and a bandemia of 10. Patient had a creatinine 1.4. CT scan of the chest showed diffuse reticular nodular interstitial pneumonia pattern with small areas of atelectasis/consolidation of the bilateral bases. Patient was admitted to the hospital for treatment of pneumonia. HOSPITAL COURSE: Patient was placed on BiPAP therapy due to the patient having hypoxemic and hypercarbic respiratory failure with a respiratory acidosis found on ABG. Patient was on BiPAP therapy from 03/27/2021 and on the morning of 2020. Patient's respiratory acidosis did improve and patient's hypercarbia also improved. Patient was able to be transitioned to nasal cannula oxygen. Patient was able to maintain his oxygen saturations off of BiPAP and on nasal cannula oxygen throughout the day on 03/28/2021 and overnight. Patient was then transferred from the intensive care unit to the medical surgical floor. Patient was continued on IV Zosyn and IV azithromycin before being transitioned to p.o. levofloxacin. Patient's CT scan of the chest also showed that the patient has a pattern consistent with COPD and patient was found to be wheezing so patient was given steroids due to a COPD exacerbation. Patient will be sent home on 4 days of oral prednisone as he was transition from IV Solu-Medrol to oral prednisone on 03/29/2021. Patient was feeling better and was able to move about the room however, patient still needed oxygen therapy. Patient qualified for home oxygen therapy as his resting saturation on room air was in the mid 80s. Patient had a prescription given to him for home oxygen as patient said he has been on home oxygen after a prior admission that was similar to this. Patient was instructed to follow-up with his primary care provider for further guidance with his home oxygen. Patient was deemed ready for discharge and was discharged home on 03/30/2021. DISCHARGE MEDICATIONS: Please see below. ALLERGIES: Please see below. PHYSICAL EXAMINATION ON DISCHARGE: VITAL SIGNS: Please see below. General: Alert and oriented male patient who was sitting in the bed when I walked into the room. Patient had nasal cannula oxygen in place. Patient did not appear to be in any acute distress. HEENT: Normocephalic, atraumatic, moist mucous membranes. Neck: No lymphadenopathy or thyromegaly Cardiac: Regular rate and rhythm, no murmurs, normal S1, normal S2 Pulm: Scattered end expiratory wheezing heard throughout the lung lorenz Abd: Nondistended, nontender to palpation, normal bowel sounds Ext: No edema bilateral lower extremities LABORATORY DATA: Please see below. IMAGING: Chest x-ray performed on 03/27/2021 was reported to show advanced chronic changes. Cannot exclude subtle superimposed left-sided airspace disease. CT scan of the chest without contrast on 03/27/2021 is reported to show diffuse reticular nodular interstitial pneumonia pattern with small areas of atelectasis/consolidation at the bilateral bases (left greater than right) PROGNOSIS: Fair ACTIVITY: As tolerated. DIET: Consistent carbohydrate DISCHARGE PLAN: Discharge home with home health services DISPOSITION: . DISCHARGE INSTRUCTIONS: 1. Follow-up with your primary care provider within 5 to 7 days of discharge. 2. Continues home oxygen to maintain oxygen saturations during 88-92%. 3. Continue levofloxacin 750 mg for the next 5 days 4. Continue prednisone 40 mg the next 4 days 5. Return to the emergency department if your symptoms worsen ITEMS TO FOLLOWUP ON ON OUTPATIENT: 1. Resolution of pneumonia. DISCHARGE CONDITION: Stable. TIME SPENT ON DISCHARGE: 35 minutes. Vital Signs/I&Os Vital Signs Date Time Temp Pulse Resp B/P (MAP) Pulse Ox O2 Delivery O2 Flow Rate FiO2 03/30/21 11:38 90 Nasal Cannula 0.5 03/29/21 22:00 97.8 99 20 142/74 (96) 03/28/21 12:00 30 I&O- Last 24 Hours up to 6 AM 03/30/21 06:00 Intake Total 100 ml Output Total 1500 ml Balance -1400 ml Laboratory Data Labs 24H Laboratory Tests 2 03/29/21 16:56: Bedside Glucose (Misc Panel) 149H 03/29/21 20:34: Bedside Glucose (Misc Panel) 176H 03/30/21 06:16: Bedside Glucose (Misc Panel) 135H 03/30/21 07:58: Nucleated Red Blood Cells % (auto) 0.0, Magnesium Level 1.8 03/30/21 11:38: Bedside Glucose (Misc Panel) 86 CBC/BMP Laboratory Tests 03/30/21 07:58 FSBS Laboratory Tests Test 03/29/21 16:56 03/29/21 20:34 03/30/21 06:16 03/30/21 11:38 Range/Units Bedside Glucose (Misc Panel) 149 176 135 86 80-115 MG/DL Microbiology Microbiology 03/28/21 Acid Fast Stain - Final, Resulted 03/28/21 Mycobacterial Culture, Resulted Pending 03/27/21 Blood Culture - Preliminary, Resulted No Growth after 48 hours. All Specime... 03/27/21 Blood Culture - Preliminary, Resulted No Growth after 48 hours. All Specime... Discharge Medications Scheduled Amlodipine Besylate (Amlodipine Besylate) 10 Mg Tab, 10 MG PO QHS, (Reported) Aspirin (Aspirin EC) 81 Mg Tablet.dr, 81 MG PO QHS, (Reported) Atorvastatin Calcium (Atorvastatin Calcium) 40 Mg Tab, 40 MG PO QHS, (Reported) Benazepril HCl (Benazepril HCl) 20 Mg Tablet, 20 MG PO DAILY, (Reported) Levofloxacin (Levofloxacin) 750 Mg Tablet, 750 MG PO DAILY@06 Metformin HCl (Metformin HCl) 1,000 Mg Tab, 1,000 MG PO BID, (Reported) Omeprazole (Omeprazole) 40 Mg Cap, 40 MG PO DAILY, (Reported) Oxybutynin Chloride (Oxybutynin Chloride ER) 15 Mg Tab.er.24, 15 MG PO DAILY, (Reported) Prednisone (Prednisone) 20 Mg Tablet, 40 MG PO DAILY Tamsulosin Hcl (Tamsulosin HCl) 0.4 Mg Cap, 0.4 MG PO DAILY, (Reported) Umeclidinium [place] (Incruse Ellipta) 62.5 Mcg Blst.w.dev, 1 PUFF INH QHS, (Re ported) Scheduled PRN Acetaminophen (Acetaminophen) 325 Mg Tablet, 650 MG PO Q4H PRN for PAIN LEVEL 1- 4, (Reported) Albuterol Sulfate (Ventolin Hfa) 108 Mcg/Act Aer, 2 PUFF INH Q4-6HP PRN for SHORTNESS OF BREATH, (Reported) Guaifenesin (Mucinex) 600 Mg Tab.er.12h, 600 MG PO BID PRN for COUGH, (Reported) Torsemide (Torsemide) 10 Mg Tablet, 10 MG PO DAILY PRN for FLUID RETENTION, (Reported) Allergies Coded Allergies: No Known Allergies (Unverified , 11/28/18) OLLIE SAAVEDRA DO Mar 30, 2021 12:42
[2021-03-30] MEDS ORDERED: SYMB80INH INH (12:43)
[2021-03-30 14:09] LABS: BODY FLUID CULTURE Not indicated. (.); LEGIONELLA ANTIGEN URINE Negative (Negative); ORGANISM ID Not indicated. (.); SPECIMEN SOURCE Urine (.); URINE STREP PNEUMONIAE ANTIGEN Negative (Negative)
[2021-03-30 14:09] LABS: CHLAMYDIA PNEUMONIAE IgM <1:10 (Neg:<1:10); MYCOPLASMA PNEUMONIAE IgG 225 U/mL (0-99); MYCOPLASMA PNEUMONIAE IgM <770 U/mL (0-769)
== END 2021-03-30 15:00 | disposition home health service (06) | DRG 871 ==
LOC: M ED 07:53 → EDBD 07:53 → M ED INP 12:55 → ENRESERV 14:10 → M PCU 15:14 → M ICU 17:08 → M MS5PR 03-29 12:39
PROVIDERS: ADMIT Internal Medicine; ATTEND Family Medicine
DX: A41.9 Sepsis, unspecified organism (principal); J18.0 Bronchopneumonia, unspecified organism; G93.41 Metabolic encephalopathy; J96.01 Acute respiratory failure with hypoxia; J96.92 Respiratory failure, unspecified with hypercapnia; J44.0 Chronic obstructive pulmonary disease with (acute) lower respiratory infection; J44.1 Chronic obstructive pulmonary disease with (acute) exacerbation; N17.9 Acute kidney failure, unspecified; I50.32 Chronic diastolic (congestive) heart failure; C91.10 Chronic lymphocytic leukemia of B-cell type not having achieved remission; R65.20 Severe sepsis without septic shock; I11.0 Hypertensive heart disease with heart failure; E11.9 Type 2 diabetes mellitus without complications; K74.60 Unspecified cirrhosis of liver; B18.2 Chronic viral hepatitis C; K22.70 Barrett's esophagus without dysplasia; Z79.82 Long term (current) use of aspirin; Z79.899 Other long term (current) drug therapy; E55.9 Vitamin D deficiency, unspecified; N40.0 Benign prostatic hyperplasia without lower urinary tract symptoms

== ENCOUNTER → 2021-04-24 | Outpatient (REF) | payer MEDICARE ==
[~2021-04-24] MED LIST changes: +APAP325T4 PO; +INCR1INH INH; +LEVO750T13 PO; +SYMB80INH INH
== END ==
LOC: M SFHCADAM 12:25
PROVIDERS: ATTEND Physician Assistant Medical
DX: A31.0 Pulmonary mycobacterial infection (principal)

== ENCOUNTER → 2021-05-01 | Outpatient (REF) | payer MEDICARE ==
[2021-05-01 12:02] LABS: HEMATOCRIT 43.9 % (42.0-52.0); HEMOGLOBIN 13.1 g/dl (13.5-17.5); MEAN CORPUSCULAR HEMOGLOBIN 29.2 pg (27.0-33.0); MEAN CORPUSCULAR HGB CONC 29.8 g/dl (32.0-36.5); MEAN CORPUSCULAR VOLUME 97.8 fl (80.0-96.0); PLATELET COUNT, AUTOMATED 291 10^3/uL (150-450); RED BLOOD COUNT 4.49 10^6/uL (4.30-6.10); WHITE BLOOD COUNT 12.2 10^3/uL (4.0-10.0)
[2021-05-01 12:21] LABS: HEMOGLOBIN A1c 6.2 %
[2021-05-01 12:37] LABS: ATYPICAL LYMPH 1 % (0-5); EOSINOPHILS 8 % (0-3); LYMPHOCYTES 35 % (16-44); MONOCYTES 3 % (0-5); NEUTROPHILS 52 % (28-66)
[2021-05-01 12:38] LABS: PLATELET ESTIMATE NORMAL (NORMAL)
[2021-05-01 12:42] LABS: ALBUMIN 3.1 GM/DL (3.2-5.2); ALT/SGPT 14 U/L (12-78); BILIRUBIN,TOTAL 0.3 MG/DL (0.2-1.0); BLOOD UREA NITROGEN 15 MG/DL (7-18); CALCIUM LEVEL 8.8 MG/DL (8.8-10.2); CARBON DIOXIDE LEVEL 30 MEQ/L (21-32); CHLORIDE LEVEL 102 MEQ/L (98-107); CREATININE FOR GFR 1.18 MG/DL (0.70-1.30); GLOMERULAR FILTRATION RATE > 60.0 (>49); GLUCOSE, FASTING 91 MG/DL (70-100); POTASSIUM SERUM 5.3 MEQ/L (3.5-5.1); SODIUM LEVEL 137 MEQ/L (136-145); TOTAL PROTEIN 6.6 GM/DL (6.4-8.2)
[2021-05-01 12:44] LABS: TOTAL 25(OH) VITAMIN D 31.3 NG/ML (30.0-100.0)
[2021-05-01 12:45] LABS: CREATININE, URINE 66.1 MG/DL; MALB URINE SIEMENS < 5.0 MG/L; MAU/CREAT RATIO 7.5 MCG/MG (0.0-30.0)
== END ==
LOC: M SFHCADAM 10:42
PROVIDERS: ATTEND Physician Assistant Medical
DX: K74.60 Unspecified cirrhosis of liver (principal); E11.9 Type 2 diabetes mellitus without complications; E55.9 Vitamin D deficiency, unspecified; Z79.51 Long term (current) use of inhaled steroids; Z79.899 Other long term (current) drug therapy; Z79.84 Long term (current) use of oral hypoglycemic drugs
CPT/HCPCS: 80053; 82043; 82105; 82306; 83036; 85025; G0463

== ENCOUNTER → 2021-06-14 | Outpatient (CLI) | payer MEDICARE ==
[~2021-06-14] MED LIST changes: +DOXY-443 PO; -DOXY1CAP62 PO
--- NOTE | 2021-06-14 09:09 | REP ---
INDICATION: CIRRHOSIS OF LIVER. COMPARISON: 03/25/2019 TECHNIQUE: Real-time sonographic evaluation of the right upper quadrant with Doppler FINDINGS: Multiple ultrasonographic images of the liver show the hepatic parenchymal echo texture to appear somewhat heterogenous but unchanged. There are no focal masses. There is no intrahepatic ductal dilatation. The common bile duct measures 8 mm in its greatest transverse dimension. Multiple ultrasonographic images of the gallbladder show multiple echogenic foci within the gallbladder lumen which casts acoustic shadows. There is no gallbladder wall thickening or pericholecystic edema. Images of the pancreatic region show no gross abnormality. The imaged portion of the right kidney shows an unchanged cyst and a small echogenic focus in the superior pole region which casts and acoustic shadow. There is no hydronephrosis. IMPRESSION: Cholelithiasis. Unchanged renal cyst. Likely small nonobstructing right upper pole renal calculus. The size of the common bile duct has increased. It appears mildly dilated. Consider follow-up with MRCP. Accredited by the [employer] in General Ultrasound. <Electronically signed by Benito Cooper > 06/14/21 [id number]
== END ==
LOC: M RAD 07:07
PROVIDERS: ATTEND Physician Assistant Medical
DX: K80.80 Other cholelithiasis without obstruction (principal); K74.60 Unspecified cirrhosis of liver; N28.1 Cyst of kidney, acquired

== ENCOUNTER → 2021-06-14 | Outpatient (REF) | payer MEDICARE ==
[2021-06-14 15:15] LABS: HEMATOCRIT 43.4 % (42.0-52.0); MEAN CORPUSCULAR HEMOGLOBIN 28.3 pg (27.0-33.0); MEAN CORPUSCULAR VOLUME 94.3 fl (80.0-96.0); PLATELET COUNT, AUTOMATED 234 10^3/uL (150-450); WHITE BLOOD COUNT 11.6 10^3/uL (4.0-10.0)
[2021-06-14 15:36] LABS: ALBUMIN 2.9 GM/DL (3.2-5.2); ALT/SGPT 17 U/L (12-78); BILIRUBIN,TOTAL 0.4 MG/DL (0.2-1.0); BLOOD UREA NITROGEN 13 MG/DL (7-18); CALCIUM LEVEL 8.9 MG/DL (8.8-10.2); CARBON DIOXIDE LEVEL 30 MEQ/L (21-32); CHLORIDE LEVEL 107 MEQ/L (98-107); GLOMERULAR FILTRATION RATE > 60.0 (>49); GLUCOSE, FASTING 100 MG/DL (70-100); POTASSIUM SERUM 4.1 MEQ/L (3.5-5.1); SODIUM LEVEL 140 MEQ/L (136-145); TOTAL PROTEIN 6.8 GM/DL (6.4-8.2)
[2021-06-14 15:39] LABS: ATYPICAL LYMPH 3 % (0-5); BASOPHILS 1 % (0-1); LYMPHOCYTES 34 % (16-44); MONOCYTES 7 % (0-5); NEUTROPHILS 54 % (28-66); PLATELET ESTIMATE NORMAL (NORMAL)
[2021-06-14 15:40] LABS: ANISOCYTOSIS 1+; HYPOCHROMASIA 1+
[2021-06-14 16:02] LABS: ERYTHROCYTE SEDIMENTATION RATE 11 mm/hr (0-20)
[2021-06-14 16:24] LABS: HIV 1&2 SCREEN CENTAUR NEGATIVE (NEGATIVE)
[2021-06-16 12:07] LABS: HEPATITIS C QUANTITATION HCV Not Detected IU/mL (.)
== END ==
LOC: M LAB REF 14:36
PROVIDERS: ATTEND Internal Medicine Infectious Disease
DX: A31.0 Pulmonary mycobacterial infection (principal); K74.60 Unspecified cirrhosis of liver

== ENCOUNTER → 2021-09-18 | Outpatient (CLI) | payer MEDICARE, OTHER ==
[~2021-09-18] MED LIST changes: +BENA-8 PO; -BENA20TA8 PO; -CEFD1CAP8 PO; +CEFD300C41 PO; -LEVO500T3 PO; +LEVO500T4 PO; -OMEP-221 PO; +OMEP40CA5 PO
== END ==
LOC: M RAD 15:10
PROVIDERS: ATTEND Internal Medicine Pulmonary Disease
DX: A31.0 Pulmonary mycobacterial infection (principal); J43.9 Emphysema, unspecified

== ENCOUNTER → 2021-12-28 | Outpatient (REF) | payer MEDICARE ==
[2021-12-28 17:32] LABS: BASO # 0.1 10^3/uL (0.0-0.2); BASO % 0.5 % (0.0-1.0); EOS # 0.2 10^3/uL (0.0-0.5); EOS % 1.3 % (0.0-3.0); HEMATOCRIT 40.1 % (42.0-52.0); HEMOGLOBIN 12.3 g/dl (13.5-17.5); LYMPH # 3.4 10^3/uL (1.5-5.0); LYMPH % 24.2 % (24.0-44.0); MEAN CORPUSCULAR HEMOGLOBIN 28.7 pg (27.0-33.0); MEAN CORPUSCULAR HGB CONC 30.7 g/dl (32.0-36.5); MEAN CORPUSCULAR VOLUME 93.7 fl (80.0-96.0); MONO # 1.2 10^3/uL (0.0-0.8); MONO % 8.8 % (2.0-8.0); NEUTROPHILS # 9.2 10^3/uL (1.5-8.5); NEUTROPHILS % 64.7 % (36.0-66.0); PLATELET COUNT, AUTOMATED 359 10^3/uL (150-450); RED BLOOD COUNT 4.28 10^6/uL (4.30-6.10); WHITE BLOOD COUNT 14.2 10^3/uL (4.0-10.0)
[2021-12-28 17:33] LABS: APPEARANCE, URINE HAZY (CLEAR); BACTERIA, URINE AUTO NEGATIVE (NEGATIVE); BILIRUBIN, URINE AUTO NEGATIVE (NEGATIVE); BLOOD, URINE BLOOD NEGATIVE (NEGATIVE); COLOR, URINE AMBER (YELLOW); GLUCOSE, URINE (UA) AUTO NEGATIVE (NEGATIVE); KETONE, URINE AUTO NEGATIVE (NEGATIVE); LEUKOCYTE ESTERASE, URINE AUTO TRACE (NEGATIVE); MUCUS, URINE SMALL (NEGATIVE); NITRITE, URINE AUTO NEGATIVE (NEGATIVE); PROTEIN, URINE AUTO 1+ mg/dL (NEGATIVE); RBC, URINE AUTO 1 /HPF (0-3); SPECIFIC GRAVITY URINE AUTO 1.018 (1.002-1.035); SQUAMOUS EPITHELIAL CELL UR AU 0 /HPF (0-6); WBC, URINE AUTO 2 /HPF (0-3)
[2021-12-28 18:02] LABS: ALBUMIN 2.6 GM/DL (3.2-5.2); ALT/SGPT 20 U/L (12-78); BILIRUBIN,TOTAL 0.3 MG/DL (0.2-1.0); BLOOD UREA NITROGEN 8 MG/DL (7-18); CALCIUM LEVEL 8.6 MG/DL (8.8-10.2); CARBON DIOXIDE LEVEL 33 MEQ/L (21-32); CHLORIDE LEVEL 103 MEQ/L (98-107); CHOLESTEROL LEVEL 107 MG/DL (<200); CHOLESTEROL RISK RATIO 3.242 (<5); CREATININE FOR GFR 0.98 MG/DL (0.70-1.30); GLOMERULAR FILTRATION RATE > 60.0 (>42); GLUCOSE, FASTING 98 MG/DL (70-100); HDL CHOLESTEROL 33 MG/DL (>40); LDL CHOLESTEROL 56 MG/DL (<100); NON-HDL-C 74 MG/DL; POTASSIUM SERUM 4.2 MEQ/L (3.5-5.1); SODIUM LEVEL 141 MEQ/L (136-145); THYROID STIMULATING HORMONE 0.493 uIU/ML (0.358-3.740); TOTAL PROTEIN 6.5 GM/DL (6.4-8.2); TRIGLYCERIDES LEVEL 91 MG/DL (<150)
[2021-12-28 18:03] LABS: TOTAL 25(OH) VITAMIN D 21.1 NG/ML (30.0-100.0)
[2021-12-28 18:28] LABS: HEMOGLOBIN A1c 6.3 %
== END ==
LOC: M SFHCADAM 15:30
PROVIDERS: ATTEND Physician Assistant Medical
DX: K74.60 Unspecified cirrhosis of liver (principal); E11.9 Type 2 diabetes mellitus without complications; E55.9 Vitamin D deficiency, unspecified; R39.15 Urgency of urination; N40.1 Benign prostatic hyperplasia with lower urinary tract symptoms

== ENCOUNTER → 2022-01-18 | Outpatient (CLI) | payer MEDICARE | LOC: M WHC 07:46 | PROVIDERS: ATTEND Physician Assistant Medical | DX: K74.60 Unspecified cirrhosis of liver (principal); K80.20 Calculus of gallbladder without cholecystitis without obstruction; N28.1 Cyst of kidney, acquired ==

== ENCOUNTER 2022-02-08 10:20 | Emergency (ER) | payer MEDICARE ==
[~2022-02-08] VITALS: Ht 180.3 cm; Wt 83.4 kg
[2022-02-08] MEDS ORDERED: methylPREDNISolone 125MG 2ML VIAL IV ONE (10:45)
[2022-02-08 11:16] LABS: BASO # 0.1 10^3/uL (0.0-0.2); BASO % 0.4 % (0.0-1.0); EOS # 0.2 10^3/uL (0.0-0.5); EOS % 1.7 % (0.0-3.0); HEMATOCRIT 42.5 % (42.0-52.0); HEMOGLOBIN 11.8 g/dl (13.5-17.5); LYMPH # 3.1 10^3/uL (1.5-5.0); LYMPH % 22.9 % (24.0-44.0); MEAN CORPUSCULAR HEMOGLOBIN 26.5 pg (27.0-33.0); MEAN CORPUSCULAR HGB CONC 27.8 g/dl (32.0-36.5); MEAN CORPUSCULAR VOLUME 95.5 fl (80.0-96.0); MONO # 1.3 10^3/uL (0.0-0.8); MONO % 9.8 % (2.0-8.0); NEUTROPHILS # 8.7 10^3/uL (1.5-8.5); NEUTROPHILS % 64.8 % (36.0-66.0); PLATELET COUNT, AUTOMATED 292 10^3/uL (150-450); RED BLOOD COUNT 4.45 10^6/uL (4.30-6.10); WHITE BLOOD COUNT 13.4 10^3/uL (4.0-10.0)
[2022-02-08 11:25] LABS: VENOUS HCO3 34.5 MEQ/L (23.0-27.0); VENOUS O2 SATURATION 59.4 % (60.0-80.0); VENOUS PARTIAL PRESSURE CO2 85.6 mmHg (38.0-50.0); VENOUS PARTIAL PRESSURE O2 31.9 mmHg (30.0-50.0); VENOUS PH 7.223 UNITS (7.330-7.430); VENOUS STANDARD HCO3 27.2 MEQ/L; VENOUS TOTAL CO2 37.1 MEQ/L (24.0-28.0)
[2022-02-08] MEDS: COMBIVENT RESPIMAT 100-20MCG INHALER 4GM INH SCH ×2 (11:35→12:45)
[2022-02-08 12:31] LABS: ALBUMIN 2.5 GM/DL (3.2-5.2); BILIRUBIN,DIRECT 0.2 MG/DL (0.0-0.2); BILIRUBIN,TOTAL 0.5 MG/DL (0.2-1.0); CALCIUM LEVEL 8.5 MG/DL (8.8-10.2); CREATININE FOR GFR 1.31 MG/DL (0.70-1.30); GLOMERULAR FILTRATION RATE 57.6 (>42); POTASSIUM SERUM 4.6 MEQ/L (3.5-5.1); THYROID STIMULATING HORMONE 0.72 uIU/ML (0.358-3.740); TOTAL PROTEIN 6.6 GM/DL (6.4-8.2)
[2022-02-08 13:55] VITALS: BP 129/63
[2022-02-08] MEDS ORDERED: PRED20TA PO (13:59)
[2022-02-08] MEDS ORDERED: DOXY-342 PO (14:00)
[2022-02-08] MEDS ORDERED: AMOX875T2 PO (14:00)
== END 2022-02-08 14:24 | disposition left against medical advice (07) ==
LOC: M ED 10:20
DX: J18.9 Pneumonia, unspecified organism (principal); J44.9 Chronic obstructive pulmonary disease, unspecified; R94.31 Abnormal electrocardiogram [ECG] [EKG]; E11.9 Type 2 diabetes mellitus without complications; I10 Essential (primary) hypertension; E78.5 Hyperlipidemia, unspecified; K21.9 Gastro-esophageal reflux disease without esophagitis; B18.2 Chronic viral hepatitis C; F17.200 Nicotine dependence, unspecified, uncomplicated; Z79.51 Long term (current) use of inhaled steroids; Z79.4 Long term (current) use of insulin; Z53.21 Procedure and treatment not carried out due to patient leaving prior to being seen by health care provider
CPT/HCPCS: 36600; 71045; 80048; 80076; 82803; 83605; 83880; 84443; 84484; 85025; 87040; 87077; 87186; 87486; 87581; 87633; 87798; 93005; 93041; 93971; 94640; 94760; 96374; 99284; J2930

== ENCOUNTER 2022-02-11 11:09 | Emergency (ER) | payer MEDICARE ==
[~2022-02-11] VITALS: Ht 180.3 cm; Wt 83.6 kg
[~2022-02-11 11:09] MED LIST changes: +AMOX875T2 PO; +DOXY-342 PO
[2022-02-11] MEDS ORDERED: ceFAZolin SOD 2 GM in IV 1 EA IV ONE (12:10)
[2022-02-11 12:34] LABS: BASO % 0.1 % (0.0-1.0); HEMATOCRIT 38.8 % (42.0-52.0); HEMOGLOBIN 11.3 g/dl (13.5-17.5); LYMPH # 1.7 10^3/uL (1.5-5.0); LYMPH % 14.7 % (24.0-44.0); MEAN CORPUSCULAR HEMOGLOBIN 26.5 pg (27.0-33.0); MEAN CORPUSCULAR HGB CONC 29.1 g/dl (32.0-36.5); MEAN CORPUSCULAR VOLUME 90.9 fl (80.0-96.0); MONO # 0.1 10^3/uL (0.0-0.8); MONO % 0.9 % (2.0-8.0); NEUTROPHILS # 9.7 10^3/uL (1.5-8.5); NEUTROPHILS % 83.9 % (36.0-66.0); PLATELET COUNT, AUTOMATED 249 10^3/uL (150-450); RED BLOOD COUNT 4.27 10^6/uL (4.30-6.10); WHITE BLOOD COUNT 11.5 10^3/uL (4.0-10.0)
[2022-02-11] MEDS ORDERED: DALBAVANCIN 1,500 MG in D5W 250 ML IV ONE (12:45)
[2022-02-11 12:57] LABS: CALCIUM LEVEL 8.3 MG/DL (8.8-10.2); CREATININE FOR GFR 1.65 MG/DL (0.70-1.30); GLOMERULAR FILTRATION RATE 44.1 (>42); POTASSIUM SERUM 4.1 MEQ/L (3.5-5.1)
[2022-02-11 15:00] VITALS: BP 133/59
== END 2022-02-11 15:24 | disposition left against medical advice (07) ==
LOC: M ED 11:09
DX: B95.61 Methicillin susceptible Staphylococcus aureus infection as the cause of diseases classified elsewhere (principal); E11.9 Type 2 diabetes mellitus without complications; I10 Essential (primary) hypertension; J44.9 Chronic obstructive pulmonary disease, unspecified; E78.5 Hyperlipidemia, unspecified; B18.2 Chronic viral hepatitis C; F17.200 Nicotine dependence, unspecified, uncomplicated; Z79.899 Other long term (current) drug therapy; Z53.21 Procedure and treatment not carried out due to patient leaving prior to being seen by health care provider
CPT/HCPCS: 36415; 80048; 83605; 85025; 87040; 96365; 96366; 99284; J0690; J0875

== ENCOUNTER 2022-03-02 22:46 | Inpatient (IN) | payer MEDICARE ==
[~2022-03-02] VITALS: Ht 180.3 cm; Wt 86.7 kg
[2022-03-02] MEDS ORDERED: LYRI75CA PO (23:12)
[2022-03-03 02:10] LABS: BASO # 0.1 10^3/uL (0.0-0.2); BASO % 0.2 % (0.0-1.0); EOS # 0.3 10^3/uL (0.0-0.5); EOS % 1.2 % (0.0-3.0); HEMATOCRIT 36.8 % (42.0-52.0); HEMOGLOBIN 10.7 g/dl (13.5-17.5); LYMPH # 3.6 10^3/uL (1.5-5.0); LYMPH % 16.5 % (24.0-44.0); MEAN CORPUSCULAR HGB CONC 29.1 g/dl (32.0-36.5); MEAN CORPUSCULAR VOLUME 92.9 fl (80.0-96.0); MONO # 1.4 10^3/uL (0.0-0.8); MONO % 6.6 % (2.0-8.0); NEUTROPHILS # 16.2 10^3/uL (1.5-8.5); NEUTROPHILS % 74.8 % (36.0-66.0); PLATELET COUNT, AUTOMATED 334 10^3/uL (150-450); RED BLOOD COUNT 3.96 10^6/uL (4.30-6.10); WHITE BLOOD COUNT 21.7 10^3/uL (4.0-10.0)
[2022-03-03 02:29] LABS: INR 1.02; PROTHROMBIN TIME 13.8 SECONDS (12.7-14.5)
[2022-03-03 02:42] LABS: CALCIUM LEVEL 8.2 MG/DL (8.8-10.2); CREATININE FOR GFR 1.69 MG/DL (0.70-1.30); GLOMERULAR FILTRATION RATE 42.9 (>42); POTASSIUM SERUM 3.8 MEQ/L (3.5-5.1)
[2022-03-03 02:45] LABS: CK-MB VALUE MASS 3.9 NG/ML (<3.6); MB/CK RELATIVE INDEX 5.27 (< OR =4)
[2022-03-03] MEDS ORDERED: carisoprodoL 350 MG TAB PO ONE (04:10)
[2022-03-03] MEDS ORDERED: cefTRIAXone SOD 1 GM in D5W MINI-BAG PLUS 50 ML IV ONE (05:30)
[2022-03-03] MEDS ORDERED: AZITHROMYCIN INJ 500 MG, VIAL MATE ADAPTER 1 EACH in NS 250 ML IV ONE (05:30)
[2022-03-03] MEDS ORDERED: NS 1,000 ML IV ONE ×2 (05:30→07:55)
[2022-03-03 06:37] LABS: RSV AMPLIFICATION NEGATIVE (NEGATIVE)
[2022-03-03] MEDS ORDERED: TRAM50TA2 PO ×2 (07:09→12:41)
[2022-03-03] MEDS ORDERED: AMOX875T2 PO (07:09)
[2022-03-03] MEDS ORDERED: NS 500 ML in IV 1 EA IV ONE (08:05)
[2022-03-03] MEDS ORDERED: patient note (12:41)
[2022-03-03] MEDS ORDERED: TORS10TA3 PO (12:41)
[2022-03-03 12:43] LABS: C REACTIVE PROTEIN QUANTITATIV 18.1 MG/DL (0.00-0.30)
[2022-03-03] MEDS ORDERED: ACETAMINOPHEN TAB 650MG DOSE (2X325MG) PO PRN (12:45)
[2022-03-03] MEDS ORDERED: HOME MED LIST COMPLETE! XX SCH (12:45)
[2022-03-03] MEDS ORDERED: NS 1,000 ML IV SCH (12:50)
[2022-03-03] MEDS ORDERED: ALBUTEROL 90 MCG/ACT 8GM HFA INHALER INH PRN (12:50)
[2022-03-03 13:01] LABS: ERYTHROCYTE SEDIMENTATION RATE 10 mm/hr (0-20)
[2022-03-03] MEDS: HEPARIN SOD (PORCINE) 5000UNITS/ML 1ML VIAL/SYRINGE SC SCH ×2 (14:00→21:25)
[2022-03-03] MEDS ORDERED: DEXTROSE 50% 50 ML SYRINGE IV PRN (14:15)
[2022-03-03] MEDS ORDERED: GLUCAGON INJ 1MG VIAL SC PRN (14:15)
[2022-03-03] MEDS ORDERED: GLUCOSE 4GM CHEW TABLET PO PRN (14:15)
[2022-03-03 16:32] VITALS: BP 101/53
[2022-03-03] MEDS: INSULIN LISPRO (NovoLOG) PER UNIT SC SCH ×2 (17:30→21:00)
[2022-03-03 17:56] VITALS: BP 106/54
[2022-03-03] MEDS ORDERED: LEVALBUTEROL 1.25 MG/0.5 ML CONCENTRATE NEB INH PRN (18:10)
[2022-03-03 18:24] LABS: ABG BASE EXCESS -9.2 (-2.0-2.0); ABG HCO3 20.6 MEQ/L (22.0-26.0); ABG O2 SATURATION 89.5 % (95.0-99.0); ABG PARTIAL PRESSURE O2 63.8 mmHg (75.0-100.0); ABG TOTAL CO2 22.6 MEQ/L (23.0-31.0)
[2022-03-03 18:28] LABS: ABG PARTIAL PRESSURE CO2 64.8 mmHg (35.0-45.0); ABG pH (ARTERIAL) 7.121 UNITS (7.350-7.450)
[2022-03-03] MEDS ORDERED: methylPREDNISolone 125MG 2ML VIAL IV ONE (19:00)
[2022-03-03] MEDS: CEFEPIME HCL 2 GM in D5W MINI-BAG PLUS 50 ML IV SCH (19:39)
[2022-03-03] MEDS: IPRATROPIUM 0.5MG/ALBUTEROL 2.5MG INH SOL UD 3ML (DUONEB) NEB SCH ×2 (19:51→23:12)
[2022-03-03 20:00] VITALS: BP 101/50
[2022-03-03] MEDS ORDERED: IPRATROPIUM 0.5MG/ALBUTEROL 2.5MG INH SOL UD 3ML (DUONEB) NEB SCH (20:00)
[2022-03-03] MEDS ORDERED: SYMBICORT 80/4.5MCG INHALER 6GM INH SCH (20:00)
[2022-03-03 21:00] VITALS: BP 101/56
[2022-03-03] MEDS ORDERED: VANCOMYCIN HCL 750 MG, VIAL MATE ADAPTER 1 EACH in D5W 250 ML IV ONE ×2 (21:00→22:00)
[2022-03-03] MEDS: PREGABALIN 75 MG CAP(LYRICA) PO SCH (21:25)
[2022-03-03] MEDS: ASPIRIN 81MG ENTERIC TABLET PO SCH (21:25)
[2022-03-03] MEDS: ATORVASTATIN 20 MG TAB PO SCH (21:25)
[2022-03-03 22:00] VITALS: BP 100/57
[2022-03-03 22:28] LABS: ABG BASE EXCESS -4.2 (-2.0-2.0); ABG HCO3 25.1 MEQ/L (22.0-26.0); ABG O2 SATURATION 97.4 % (95.0-99.0); ABG PARTIAL PRESSURE O2 100.7 mmHg (75.0-100.0); ABG TOTAL CO2 27.2 MEQ/L (23.0-31.0)
[2022-03-03 22:29] LABS: ABG PARTIAL PRESSURE CO2 67.7 mmHg (35.0-45.0); ABG pH (ARTERIAL) 7.187 UNITS (7.350-7.450)
[2022-03-03 23:00] VITALS: BP 107/57
[2022-03-04] VITALS (22 sets, daily range): BP systolic 88–126; BP diastolic 50–63
[2022-03-04] MEDS: IPRATROPIUM 0.5MG/ALBUTEROL 2.5MG INH SOL UD 3ML (DUONEB) NEB SCH ×5 (03:04→19:14)
[2022-03-04] MEDS ORDERED: methylPREDNISolone 40MG 1ML VIAL IV SCH (04:00)
[2022-03-04 05:35] LABS: BASO % 0.1 % (0.0-1.0); HEMATOCRIT 37.4 % (42.0-52.0); HEMOGLOBIN 10.5 g/dl (13.5-17.5); LYMPH # 1.6 10^3/uL (1.5-5.0); LYMPH % 13.3 % (24.0-44.0); MEAN CORPUSCULAR HEMOGLOBIN 26.4 pg (27.0-33.0); MEAN CORPUSCULAR HGB CONC 28.1 g/dl (32.0-36.5); MEAN CORPUSCULAR VOLUME 94.2 fl (80.0-96.0); MONO # 0.1 10^3/uL (0.0-0.8); MONO % 0.9 % (2.0-8.0); NEUTROPHILS # 10.1 10^3/uL (1.5-8.5); NEUTROPHILS % 85.1 % (36.0-66.0); PLATELET COUNT, AUTOMATED 352 10^3/uL (150-450); RED BLOOD COUNT 3.97 10^6/uL (4.30-6.10); WHITE BLOOD COUNT 11.9 10^3/uL (4.0-10.0)
[2022-03-04 05:52] LABS: ABG BASE EXCESS -3.5 (-2.0-2.0); ABG HCO3 24.1 MEQ/L (22.0-26.0); ABG O2 SATURATION 95.5 % (95.0-99.0); ABG PARTIAL PRESSURE CO2 55.7 mmHg (35.0-45.0); ABG PARTIAL PRESSURE O2 79.3 mmHg (75.0-100.0); ABG STANDARD HCO3 21.5 MEQ/L (22.0-26.0); ABG TOTAL CO2 25.8 MEQ/L (23.0-31.0); ABG pH (ARTERIAL) 7.254 UNITS (7.350-7.450)
[2022-03-04] MEDS: HEPARIN SOD (PORCINE) 5000UNITS/ML 1ML VIAL/SYRINGE SC SCH ×3 (05:52→21:21)
[2022-03-04] MEDS: DOXYCYCLINE HYCLATE 100 MG in D5W MINI-BAG PLUS 100 ML IV SCH ×2 (05:53→18:34)
[2022-03-04 05:56] LABS: CALCIUM LEVEL 8.1 MG/DL (8.8-10.2); CREATININE FOR GFR 1.34 MG/DL (0.70-1.30); GLOMERULAR FILTRATION RATE 56.1 (>42); POTASSIUM SERUM 4.2 MEQ/L (3.5-5.1)
[2022-03-04] MEDS: methylPREDNISolone 40MG 1ML VIAL IV SCH ×3 (08:48→21:21)
[2022-03-04] MEDS: traMADol 50 MG TAB PO PRN (08:49)
[2022-03-04] MEDS: CEFEPIME HCL 2 GM in D5W MINI-BAG PLUS 50 ML IV SCH ×2 (08:49→19:51)
[2022-03-04] MEDS: PREGABALIN 75 MG CAP(LYRICA) PO SCH ×2 (08:50→21:20)
[2022-03-04] MEDS: TAMSULOSIN 0.4 MG CAP PO SCH (08:50)
[2022-03-04] MEDS: oxyBUTYnin *DITROPAN XL* 5 MG TABCR PO SCH (08:50)
[2022-03-04] MEDS: INSULIN LISPRO (NovoLOG) PER UNIT SC SCH ×4 (08:50→20:08)
[2022-03-04] MEDS ORDERED: cefTRIAXone SOD 1 GM in D5W MINI-BAG PLUS 50 ML IV SCH (09:00)
[2022-03-04] MEDS: VANCOMYCIN HCL 1,000 MG, VIAL MATE ADAPTER 1 EACH in NS 250 ML IV SCH ×2 (09:25→21:21)
[2022-03-04 13:12] LABS: ABG BASE EXCESS -3.8 (-2.0-2.0); ABG HCO3 22.3 MEQ/L (22.0-26.0); ABG O2 SATURATION 95.5 % (95.0-99.0); ABG PARTIAL PRESSURE CO2 45.3 mmHg (35.0-45.0); ABG PARTIAL PRESSURE O2 77.4 mmHg (75.0-100.0); ABG STANDARD HCO3 21.2 MEQ/L (22.0-26.0); ABG TOTAL CO2 23.7 MEQ/L (23.0-31.0); ABG pH (ARTERIAL) 7.311 UNITS (7.350-7.450)
[2022-03-04] MEDS: carisoprodoL 350 MG TAB PO PRN (13:24)
[2022-03-04] MEDS: ATORVASTATIN 20 MG TAB PO SCH (21:20)
[2022-03-04] MEDS: ASPIRIN 81MG ENTERIC TABLET PO SCH (21:20)
[2022-03-05] VITALS (13 sets, daily range): BP systolic 120–154; BP diastolic 60–75
[2022-03-05] MEDS: BENZONATATE 100MG CAPSULE PO PRN ×3 (00:17→20:20)
[2022-03-05] MEDS: carisoprodoL 350 MG TAB PO PRN ×3 (00:17→20:20)
[2022-03-05] MEDS: IPRATROPIUM 0.5MG/ALBUTEROL 2.5MG INH SOL UD 3ML (DUONEB) NEB SCH ×5 (00:21→19:29)
[2022-03-05] MEDS: methylPREDNISolone 40MG 1ML VIAL IV SCH ×2 (03:07→14:35)
[2022-03-05] MEDS: DOXYCYCLINE HYCLATE 100 MG in D5W MINI-BAG PLUS 100 ML IV SCH (05:08)
[2022-03-05] MEDS: HEPARIN SOD (PORCINE) 5000UNITS/ML 1ML VIAL/SYRINGE SC SCH ×3 (05:08→21:12)
[2022-03-05 05:42] LABS: ABG BASE EXCESS -5.1 (-2.0-2.0); ABG HCO3 20.9 MEQ/L (22.0-26.0); ABG PARTIAL PRESSURE CO2 42.2 mmHg (35.0-45.0); ABG STANDARD HCO3 20.2 MEQ/L (22.0-26.0); ABG TOTAL CO2 22.2 MEQ/L (23.0-31.0); ABG pH (ARTERIAL) 7.312 UNITS (7.350-7.450)
[2022-03-05 08:09] LABS: BASO % 0.1 % (0.0-1.0); HEMATOCRIT 36.5 % (42.0-52.0); HEMOGLOBIN 10.6 g/dl (13.5-17.5); LYMPH # 1.5 10^3/uL (1.5-5.0); LYMPH % 7.9 % (24.0-44.0); MEAN CORPUSCULAR HEMOGLOBIN 26.3 pg (27.0-33.0); MEAN CORPUSCULAR VOLUME 90.6 fl (80.0-96.0); MONO # 0.5 10^3/uL (0.0-0.8); MONO % 2.6 % (2.0-8.0); NEUTROPHILS # 16.8 10^3/uL (1.5-8.5); NEUTROPHILS % 88.8 % (36.0-66.0); PLATELET COUNT, AUTOMATED 349 10^3/uL (150-450); RED BLOOD COUNT 4.03 10^6/uL (4.30-6.10); WHITE BLOOD COUNT 18.9 10^3/uL (4.0-10.0)
[2022-03-05 08:29] LABS: BLOOD UREA NITROGEN 27 MG/DL (7-18); CALCIUM LEVEL 8.8 MG/DL (8.8-10.2); CARBON DIOXIDE LEVEL 25 MEQ/L (21-32); CHLORIDE LEVEL 110 MEQ/L (98-107); CREATININE FOR GFR 1.11 MG/DL (0.70-1.30); GLOMERULAR FILTRATION RATE > 60.0 (>42); GLUCOSE, FASTING 145 MG/DL (70-100); POTASSIUM SERUM 4.5 MEQ/L (3.5-5.1); SODIUM LEVEL 141 MEQ/L (136-145)
[2022-03-05] MEDS: INSULIN LISPRO (NovoLOG) PER UNIT SC SCH ×4 (08:30→20:21)
[2022-03-05] MEDS: CEFEPIME HCL 2 GM in D5W MINI-BAG PLUS 50 ML IV SCH (08:50)
[2022-03-05] MEDS: oxyBUTYnin *DITROPAN XL* 5 MG TABCR PO SCH (09:34)
[2022-03-05] MEDS: PREGABALIN 75 MG CAP(LYRICA) PO SCH ×2 (09:34→20:20)
[2022-03-05] MEDS: TAMSULOSIN 0.4 MG CAP PO SCH (09:35)
[2022-03-05] MEDS: ASPIRIN 81MG ENTERIC TABLET PO SCH (20:20)
[2022-03-05] MEDS: ATORVASTATIN 20 MG TAB PO SCH (20:20)
[2022-03-05] MEDS ORDERED: cefTRIAXone SOD 1 GM in D5W MINI-BAG PLUS 50 ML IV SCH (21:00)
[2022-03-05] MEDS ORDERED: AZITHROMYCIN INJ 500 MG, VIAL MATE ADAPTER 1 EACH in NS 250 ML IV SCH (22:00)
[2022-03-06] VITALS: BP 120/61
[2022-03-06] MEDS: IPRATROPIUM 0.5MG/ALBUTEROL 2.5MG INH SOL UD 3ML (DUONEB) NEB SCH ×2 (01:05→07:09)
[2022-03-06] MEDS: methylPREDNISolone 40MG 1ML VIAL IV SCH (02:01)
[2022-03-06 04:00] VITALS: BP 132/68
[2022-03-06 04:56] LABS: BASO % 0.1 % (0.0-1.0); HEMATOCRIT 36.4 % (42.0-52.0); HEMOGLOBIN 10.5 g/dl (13.5-17.5); LYMPH # 1.6 10^3/uL (1.5-5.0); LYMPH % 10.9 % (24.0-44.0); MEAN CORPUSCULAR HEMOGLOBIN 26.7 pg (27.0-33.0); MEAN CORPUSCULAR HGB CONC 28.8 g/dl (32.0-36.5); MEAN CORPUSCULAR VOLUME 92.6 fl (80.0-96.0); MONO # 0.5 10^3/uL (0.0-0.8); MONO % 3.3 % (2.0-8.0); NEUTROPHILS # 12.6 10^3/uL (1.5-8.5); NEUTROPHILS % 85.1 % (36.0-66.0); PLATELET COUNT, AUTOMATED 351 10^3/uL (150-450); RED BLOOD COUNT 3.93 10^6/uL (4.30-6.10); WHITE BLOOD COUNT 14.8 10^3/uL (4.0-10.0)
[2022-03-06] MEDS: HEPARIN SOD (PORCINE) 5000UNITS/ML 1ML VIAL/SYRINGE SC SCH (05:15)
[2022-03-06 05:41] LABS: BLOOD UREA NITROGEN 26 MG/DL (7-18); CARBON DIOXIDE LEVEL 26 mmol/L (20-29); CHLORIDE LEVEL 112 MEQ/L (98-107); GLOMERULAR FILTRATION RATE > 60.0 (>42); GLUCOSE, FASTING 140 MG/DL (70-100); POTASSIUM SERUM 4.2 MEQ/L (3.5-5.1); SODIUM LEVEL 144 MEQ/L (136-145)
[2022-03-06 05:42] LABS: CALCIUM LEVEL 8.8 MG/DL (8.8-10.2)
[2022-03-06] MEDS: INSULIN LISPRO (NovoLOG) PER UNIT SC SCH (07:57)
[2022-03-06 08:00] VITALS: BP 136/68
[2022-03-06] MEDS: oxyBUTYnin *DITROPAN XL* 5 MG TABCR PO SCH (08:28)
[2022-03-06] MEDS: PREGABALIN 75 MG CAP(LYRICA) PO SCH (08:28)
[2022-03-06] MEDS: TAMSULOSIN 0.4 MG CAP PO SCH (08:28)
[2022-03-06 08:32] VITALS: BP 136/68
[2022-03-06] MEDS: traMADol 50 MG TAB PO PRN (08:32)
[2022-03-06] MEDS ORDERED: PRED10TA2 PO (10:39)
[2022-03-06] MEDS ORDERED: BENZ-18 PO (10:39)
[2022-03-06] MEDS ORDERED: LEVO750T13 PO (10:39)
[2022-03-07 17:07] LABS: BODY FLUID CULTURE Not indicated. (.); LEGIONELLA ANTIGEN URINE Negative (Negative); ORGANISM ID Not indicated. (.); SPECIMEN SOURCE Urine (.); URINE STREP PNEUMONIAE ANTIGEN Negative (Negative)
== END 2022-03-06 12:15 | disposition home or self-care (01) | DRG 871 ==
LOC: M ED 22:46 → M ED INP 03-03 12:31 → M PCU 03-03 16:19 → M ICU 03-03 19:21
PROVIDERS: ADMIT Internal Medicine; ATTEND Internal Medicine
DX: A41.9 Sepsis, unspecified organism (principal); J15.0 Pneumonia due to Klebsiella pneumoniae; J96.21 Acute and chronic respiratory failure with hypoxia; J96.22 Acute and chronic respiratory failure with hypercapnia; J44.0 Chronic obstructive pulmonary disease with (acute) lower respiratory infection; N17.9 Acute kidney failure, unspecified; E87.2 Acidosis; C91.10 Chronic lymphocytic leukemia of B-cell type not having achieved remission; J44.1 Chronic obstructive pulmonary disease with (acute) exacerbation; J90 Pleural effusion, not elsewhere classified; G93.40 Encephalopathy, unspecified; E11.22 Type 2 diabetes mellitus with diabetic chronic kidney disease; E78.5 Hyperlipidemia, unspecified; K74.60 Unspecified cirrhosis of liver; B18.2 Chronic viral hepatitis C; K22.70 Barrett's esophagus without dysplasia; E55.9 Vitamin D deficiency, unspecified; M47.896 Other spondylosis, lumbar region; N40.0 Benign prostatic hyperplasia without lower urinary tract symptoms; D72.829 Elevated white blood cell count, unspecified; I95.9 Hypotension, unspecified; F17.210 Nicotine dependence, cigarettes, uncomplicated; N18.9 Chronic kidney disease, unspecified; M51.27 Other intervertebral disc displacement, lumbosacral region; Z20.822 Contact with and (suspected) exposure to COVID-19; Z79.82 Long term (current) use of aspirin; Z79.891 Long term (current) use of opiate analgesic; Z79.899 Other long term (current) drug therapy; I12.9 Hypertensive chronic kidney disease with stage 1 through stage 4 chronic kidney disease, or unspecified chronic kidney disease; R65.20 Severe sepsis without septic shock

== ENCOUNTER 2022-03-16 15:49 | Observation (INO) | payer MEDICARE ==
[~2022-03-16] VITALS: Ht 180.3 cm; Wt 79.7 kg
[~2022-03-16 15:49] MED LIST changes: +BENZ-18 PO; +LEVO1TAB39 PO; +LEVO1TAB40 PO; -LEVO500T4 PO; -LEVO750T13 PO; +LYRI75CA PO; +PRED10TA2 PO; +TRAM50TA2 PO; +patient note
[2022-03-16] MEDS ORDERED: [UNRECOGNIZED DRUG - CODE] BU (15:50)
[2022-03-16 16:55] LABS: HEMATOCRIT 41.1 % (42.0-52.0); HEMOGLOBIN 12.2 g/dl (13.5-17.5); MEAN CORPUSCULAR HGB CONC 29.7 g/dl (32.0-36.5); MEAN CORPUSCULAR VOLUME 90.9 fl (80.0-96.0); PLATELET COUNT, AUTOMATED 303 10^3/uL (150-450); RED BLOOD COUNT 4.52 10^6/uL (4.30-6.10)
[2022-03-16 16:59] LABS: WHITE BLOOD COUNT 30.1 10^3/uL (4.0-10.0)
[2022-03-16] MEDS ORDERED: NS 1,000 ML IV ONE (17:20)
[2022-03-16] MEDS ORDERED: NS 1,320 ML in IV 1 EA IV ONE (17:20)
[2022-03-16] MEDS ORDERED: cefTRIAXone SOD 2 GM in D5W MINI-BAG PLUS 50 ML IV ONE (17:20)
[2022-03-16 17:35] LABS: ANISOCYTOSIS 2+; BASOPHILS 1 % (0-1); EOSINOPHILS 2 % (0-3); LYMPHOCYTES 19 % (16-44); MONOCYTES 3 % (0-5); NEUTROPHILS 75 % (28-66); PLATELET ESTIMATE NORMAL (NORMAL)
[2022-03-16 17:42] LABS: CALCIUM LEVEL 7.9 MG/DL (8.8-10.2); CREATININE FOR GFR 2.03 MG/DL (0.70-1.30); FREE T4 1.16 NG/DL (0.76-1.46); GLOMERULAR FILTRATION RATE 34.7 (>42); MAGNESIUM LEVEL 1.5 MG/DL (1.8-2.4); POTASSIUM SERUM 4.3 MEQ/L (3.5-5.1); THYROID STIMULATING HORMONE 0.879 uIU/ML (0.358-3.740)
[2022-03-16] MEDS ORDERED: AZITHROMYCIN INJ 500 MG, VIAL MATE ADAPTER 1 EACH in NS 250 ML IV ONE (17:45)
[2022-03-16] MEDS ORDERED: ACETAMINOPHEN 325 MG TAB PO ONE (19:30)
[2022-03-16 20:13] LABS: RSV AMPLIFICATION NEGATIVE (NEGATIVE)
[2022-03-16] MEDS ORDERED: HEPARIN SOD (PORCINE) 5000UNITS/ML 1ML VIAL/SYRINGE SC SCH (21:55)
[2022-03-16] MEDS ORDERED: TREL1AER INH (22:00)
[2022-03-16] MEDS ORDERED: med rec comment (22:00)
[2022-03-16] MEDS ORDERED: HOME MED LIST COMPLETE! XX SCH (22:05)
[2022-03-16] MEDS ORDERED: GLUCOSE 4GM CHEW TABLET PO PRN (22:20)
[2022-03-16] MEDS ORDERED: DEXTROSE 50% 50 ML SYRINGE IV PRN (22:20)
[2022-03-16] MEDS ORDERED: ALBUTEROL 90 MCG/ACT 8GM HFA INHALER INH PRN (22:20)
[2022-03-16] MEDS ORDERED: GLUCAGON INJ 1MG VIAL SC PRN (22:20)
[2022-03-16 22:46] VITALS: BP 125/58
[2022-03-16] MEDS: INSULIN LISPRO (NovoLOG) PER UNIT SC SCH (22:49)
[2022-03-16] MEDS: PREGABALIN 75 MG CAP(LYRICA) PO SCH (23:12)
[2022-03-16] MEDS: ASPIRIN 81MG ENTERIC TABLET PO SCH (23:13)
[2022-03-16] MEDS: ATORVASTATIN 20 MG TAB PO SCH (23:13)
[2022-03-17] VITALS (9 sets, daily range): BP systolic 72–105; BP diastolic 40–58
[2022-03-17] MEDS ORDERED: NS 500 ML IV ONE (02:15)
[2022-03-17] MEDS ORDERED: MIDODRINE 5 MG TAB PO PRN (03:20)
[2022-03-17] MEDS ORDERED: NS 1,000 ML IV SCH (06:50)
[2022-03-17] MEDS ORDERED: MIDODRINE 5 MG TAB PO SCH (07:00)
[2022-03-17 07:11] LABS: ALBUMIN 2.2 GM/DL (3.2-5.2); BILIRUBIN,TOTAL 0.2 MG/DL (0.2-1.0); CALCIUM LEVEL 7.4 MG/DL (8.8-10.2); CREATININE FOR GFR 1.47 MG/DL (0.70-1.30); GLOMERULAR FILTRATION RATE 50.4 (>42); POTASSIUM SERUM 3.6 MEQ/L (3.5-5.1)
[2022-03-17] MEDS ORDERED: MIDODRINE 2.5 MG TAB PO ONE (08:00)
[2022-03-17] MEDS: cefTRIAXone SOD 1 GM in D5W MINI-BAG PLUS 50 ML IV SCH (08:06)
[2022-03-17] MEDS: PREGABALIN 75 MG CAP(LYRICA) PO SCH ×2 (08:10→20:43)
[2022-03-17] MEDS: TAMSULOSIN 0.4 MG CAP PO SCH (08:10)
[2022-03-17] MEDS: INSULIN LISPRO (NovoLOG) PER UNIT SC SCH ×4 (08:13→20:42)
[2022-03-17] MEDS: MIDODRINE 5 MG TAB PO SCH ×2 (12:49→16:56)
[2022-03-17] MEDS ORDERED: AZITHROMYCIN INJ 500 MG, VIAL MATE ADAPTER 1 EACH in NS 250 ML IV SCH (18:00)
[2022-03-17] MEDS: FLUTICASONE HFA 110 MCG 12 GM INHALER (FLOVENT) INH SCH (19:56)
[2022-03-17] MEDS: ASPIRIN 81MG ENTERIC TABLET PO SCH (20:43)
[2022-03-17] MEDS: ATORVASTATIN 20 MG TAB PO SCH (20:43)
[2022-03-18 05:28] VITALS: BP 108/59
[2022-03-18] MEDS: FLUTICASONE HFA 110 MCG 12 GM INHALER (FLOVENT) INH SCH (07:15)
[2022-03-18] MEDS: MIDODRINE 5 MG TAB PO SCH ×2 (07:43→12:00)
[2022-03-18] MEDS: TAMSULOSIN 0.4 MG CAP PO SCH (07:44)
[2022-03-18] MEDS: INSULIN LISPRO (NovoLOG) PER UNIT SC SCH ×2 (07:44→12:00)
[2022-03-18] MEDS: cefTRIAXone SOD 1 GM in D5W MINI-BAG PLUS 50 ML IV SCH (07:44)
[2022-03-18] MEDS: PREGABALIN 75 MG CAP(LYRICA) PO SCH (07:44)
[2022-03-18 08:54] LABS: HEMATOCRIT 38.6 % (42.0-52.0); MEAN CORPUSCULAR HEMOGLOBIN 26.9 pg (27.0-33.0); MEAN CORPUSCULAR HGB CONC 28.5 g/dl (32.0-36.5); MEAN CORPUSCULAR VOLUME 94.4 fl (80.0-96.0); PLATELET COUNT, AUTOMATED 283 10^3/uL (150-450); RED BLOOD COUNT 4.09 10^6/uL (4.30-6.10); WHITE BLOOD COUNT 19.8 10^3/uL (4.0-10.0)
[2022-03-18 09:25] LABS: BLOOD UREA NITROGEN 14 MG/DL (7-18); CALCIUM LEVEL 8.3 MG/DL (8.8-10.2); CARBON DIOXIDE LEVEL 33 MEQ/L (21-32); CHLORIDE LEVEL 105 MEQ/L (98-107); CREATININE FOR GFR 0.98 MG/DL (0.70-1.30); GLOMERULAR FILTRATION RATE > 60.0 (>42); GLUCOSE, FASTING 174 MG/DL (70-100); POTASSIUM SERUM 4.1 MEQ/L (3.5-5.1); SODIUM LEVEL 141 MEQ/L (136-145)
[2022-03-18] MEDS ORDERED: MIDO5TA PO (09:26)
[2022-03-18 10:00] VITALS: BP 134/54
== END 2022-03-18 12:48 | disposition home or self-care (01) ==
LOC: M ED 15:49 → M ED INP 15:50 → M MSPAV 22:30
PROVIDERS: ADMIT Internal Medicine; ATTEND Student in an Organized Health Care Education/Training Program
DX: I95.9 Hypotension, unspecified (principal); J96.01 Acute respiratory failure with hypoxia; E87.2 Acidosis; C91.10 Chronic lymphocytic leukemia of B-cell type not having achieved remission; E11.9 Type 2 diabetes mellitus without complications; I10 Essential (primary) hypertension; E78.5 Hyperlipidemia, unspecified; B18.2 Chronic viral hepatitis C; K74.60 Unspecified cirrhosis of liver; K22.70 Barrett's esophagus without dysplasia; E55.9 Vitamin D deficiency, unspecified; M54.50 Low back pain, unspecified; N40.0 Benign prostatic hyperplasia without lower urinary tract symptoms; J44.9 Chronic obstructive pulmonary disease, unspecified; N17.9 Acute kidney failure, unspecified; Z79.82 Long term (current) use of aspirin; Z79.899 Other long term (current) drug therapy; Z79.84 Long term (current) use of oral hypoglycemic drugs
CPT/HCPCS: 36415; 71045; 80048; 80053; 83605; 83735; 83880; 84145; 84439; 84443; 85025; 85027; 87040; 87631; 93005; 93041; 94640; 94760; 96365; 96366; 96375; 96376; 99285; G0378; J0456; J0696; J1815

== ENCOUNTER → 2022-05-07 | Outpatient (CLI) | payer MEDICARE ==
[~2022-05-07] MED LIST changes: +MIDO5TA PO; +TREL1AER INH; +[UNRECOGNIZED DRUG - CODE] BU
== END ==
LOC: M SOG 09:07
PROVIDERS: ATTEND Orthopaedic Surgery
DX: M54.2 Cervicalgia (principal)

== ENCOUNTER → 2022-05-29 | Outpatient (CLI) | payer MEDICARE | LOC: M PLAIMG 11:39 | PROVIDERS: ATTEND Internal Medicine Pulmonary Disease | DX: J47.9 Bronchiectasis, uncomplicated (principal); R91.8 Other nonspecific abnormal finding of lung field ==

== ENCOUNTER → 2022-07-16 | Outpatient (REF) | payer MEDICARE ==
[~2022-07-16] MED LIST changes: -DOXY-342 PO; -DOXY-350 PO; +DOXY-444 PO; +DOXY100C81 PO
[2022-07-16 17:04] LABS: BLOOD UREA NITROGEN 15 MG/DL (9-23); CREATININE FOR GFR 1.12 MG/DL (0.70-1.30); GLOMERULAR FILTRATION RATE > 60.0 (>42)
== END ==
LOC: M LABDRWAD 13:20
PROVIDERS: ATTEND Pain Medicine Interventional Pain Medicine
DX: M96.1 Postlaminectomy syndrome, not elsewhere classified (principal)

== ENCOUNTER → 2022-07-18 | Outpatient (CLI) | payer MEDICARE ==
[~2022-07-18] MED LIST changes: +PROHANCE 279.3MG/ML 15ML VIAL As Ordered ONE; +PROHANCE 279.3MG/ML 5ML VIAL As Ordered ONE
== END ==
LOC: M RAD 14:24
PROVIDERS: ATTEND Pain Medicine Interventional Pain Medicine
DX: M96.1 Postlaminectomy syndrome, not elsewhere classified (principal); M25.78 Osteophyte, vertebrae; M48.061 Spinal stenosis, lumbar region without neurogenic claudication
CPT/HCPCS: 72158; A9576

== ENCOUNTER 2022-10-30 11:16 | Inpatient (IN) | payer MEDICARE ==
[~2022-10-30] VITALS: Ht 180.3 cm; Wt 76.8 kg
[~2022-10-30 11:16] MED LIST changes: -PROHANCE 279.3MG/ML 15ML VIAL As Ordered ONE; -PROHANCE 279.3MG/ML 5ML VIAL As Ordered ONE; +[UNRECOGNIZED DRUG - CODE] BU; -[UNRECOGNIZED DRUG - CODE] BU
[2022-10-30] MEDS ORDERED: BENA-8 PO (11:32)
[2022-10-30 11:59] LABS: BASO % 0.2 % (0.0-1.0); EOS # 0.1 10^3/uL (0.0-0.5); EOS % 1.1 % (0.0-3.0); HEMATOCRIT 42.5 % (42.0-52.0); HEMOGLOBIN 12.5 g/dl (13.5-17.5); LYMPH # 3.5 10^3/uL (1.5-5.0); LYMPH % 31.5 % (24.0-44.0); MEAN CORPUSCULAR HEMOGLOBIN 27.1 pg (27.0-33.0); MEAN CORPUSCULAR HGB CONC 29.4 g/dl (32.0-36.5); MEAN CORPUSCULAR VOLUME 92.2 fl (80.0-96.0); MONO # 1.2 10^3/uL (0.0-0.8); MONO % 11.1 % (2.0-8.0); NEUTROPHILS # 6.2 10^3/uL (1.5-8.5); NEUTROPHILS % 55.4 % (36.0-66.0); PLATELET COUNT, AUTOMATED 281 10^3/uL (150-450); RED BLOOD COUNT 4.61 10^6/uL (4.30-6.10); WHITE BLOOD COUNT 11.1 10^3/uL (4.0-10.0)
[2022-10-30 12:27] LABS: CK-MB VALUE MASS 1.3 NG/ML (<3.6)
[2022-10-30 12:28] LABS: ALBUMIN 2.3 G/DL (3.2-5.2); ALKALINE PHOSPHATASE 89 U/L (46-116); ALT/SGPT < 9 U/L (7.0-40); AST/SGOT 34 U/L (<34); BILIRUBIN,DIRECT 0.2 MG/DL (<0.4); BILIRUBIN,TOTAL 0.4 MG/DL (0.3-1.2); BLOOD UREA NITROGEN 8 MG/DL (9-23); CALCIUM LEVEL 8.2 MG/DL (8.3-10.6); CARBON DIOXIDE LEVEL 30 MMOL/L (20-31); CHLORIDE LEVEL 104 MMOL/L (98-107); CREATININE FOR GFR 1.03 MG/DL (0.70-1.30); GLOMERULAR FILTRATION RATE > 60.0 (>42); GLUCOSE, FASTING 109 MG/DL (74-106); POTASSIUM SERUM 4.6 MMOL/L (3.5-5.1); SODIUM LEVEL 140 MMOL/L (136-145); TOTAL PROTEIN 6.3 G/DL (5.7-8.2)
[2022-10-30 12:30] LABS: CPK CREATINE PHOSPHOKINASE 62 U/L (46-171); MB/CK RELATIVE INDEX 2.09 (< OR =4)
[2022-10-30 12:32] LABS: RSV AMPLIFICATION NEGATIVE (NEGATIVE)
[2022-10-30] MEDS ORDERED: IPRATROPIUM 0.5MG/ALBUTEROL 2.5MG INH SOL UD 3ML (DUONEB) NEB PRN (13:05)
[2022-10-30] MEDS ORDERED: ISOVUE-370 76% 100ML VIAL As Ordered ONE (13:17)
[2022-10-30] MEDS ORDERED: COMBIVENT RESPIMAT 100-20MCG INHALER 4GM INH ONE (13:30)
[2022-10-30 13:43] LABS: ABG BASE EXCESS -1.7 (-2.0-2.0); ABG HCO3 25.2 MEQ/L (22.0-26.0); ABG O2 SATURATION 94.3 % (95.0-99.0); ABG PARTIAL PRESSURE CO2 51.5 mmHg (35.0-45.0); ABG PARTIAL PRESSURE O2 76.8 mmHg (75.0-100.0); ABG TOTAL CO2 26.8 MEQ/L (23.0-31.0); ABG pH (ARTERIAL) 7.308 UNITS (7.350-7.450)
[2022-10-30] MEDS ORDERED: cefTRIAXone SOD 2 GM in D5W MINI-BAG PLUS 50 ML IV ONE (14:35)
[2022-10-30] MEDS ORDERED: HOME MED LIST COMPLETE! XX SCH (15:15)
[2022-10-30] MEDS ORDERED: GLUCAGON INJ 1MG VIAL SC PRN (16:50)
[2022-10-30] MEDS ORDERED: GLUCOSE 4GM CHEW TABLET PO PRN (16:50)
[2022-10-30] MEDS ORDERED: DEXTROSE 50% 50ML SYRINGE IV PRN (16:50)
[2022-10-30 17:58] VITALS: BP 158/88
[2022-10-30 18:00] LABS: INR 0.99; PARTIAL THROMBOPLASTIN TIME 26.8 SECONDS (24.8-34.2); PROTHROMBIN TIME 13.3 SECONDS (12.5-14.5)
[2022-10-30 18:03] LABS: D-DIMER QUANT 1327.95 ng/ml (<500)
[2022-10-30] MEDS: DOXYCYCLINE HYCLATE 100 MG in D5W MINI-BAG PLUS 100 ML IV SCH (18:16)
[2022-10-30] MEDS: INSULIN LISPRO (NovoLOG) PER UNIT SC SCH (18:17)
[2022-10-30 18:19] LABS: C REACTIVE PROTEIN QUANTITATIV 5.5 MG/DL (<1.0)
[2022-10-30 18:22] LABS: FERRITIN 27.7 NG/ML (10.5-307.3)
[2022-10-30 20:00] VITALS: BP 134/82
[2022-10-30] MEDS ORDERED: REMDESIVIR 200 MG in NS 250 ML IV ONE (20:00)
[2022-10-30 20:56] VITALS: BP 134/73
[2022-10-30] MEDS ORDERED: ATORVASTATIN 20 MG TAB PO SCH (21:00)
[2022-10-30] MEDS ORDERED: INSULIN LISPRO (NovoLOG) PER UNIT SC SCH (21:00)
[2022-10-30] MEDS ORDERED: ENOXAPARIN 40MG/0.4ML SYRINGE (J1650 PER 10MG) SC SCH (21:00)
[2022-10-30] MEDS ORDERED: ASPIRIN 81MG ENTERIC TABLET PO SCH (21:00)
[2022-10-30] MEDS: OMEPRAZOLE 20MG CAP PO SCH (21:02)
[2022-10-30] MEDS ORDERED: SODIUM CHLORIDE 0.9% INJ 10 ML SYR IV ONE (22:00)
[2022-10-31] VITALS (13 sets, daily range): BP systolic 128–168; BP diastolic 75–98; O2SAT 89–97
[2022-10-31] MEDS: DOXYCYCLINE HYCLATE 100 MG in D5W MINI-BAG PLUS 100 ML IV SCH (05:16)
[2022-10-31 05:34] LABS: BASO % 0.1 % (0.0-1.0); HEMATOCRIT 38.5 % (42.0-52.0); HEMOGLOBIN 11.8 g/dl (13.5-17.5); LYMPH # 2.7 10^3/uL (1.5-5.0); LYMPH % 26.6 % (24.0-44.0); MEAN CORPUSCULAR HEMOGLOBIN 27.4 pg (27.0-33.0); MEAN CORPUSCULAR HGB CONC 30.6 g/dl (32.0-36.5); MEAN CORPUSCULAR VOLUME 89.3 fl (80.0-96.0); MONO % 9.8 % (2.0-8.0); NEUTROPHILS # 6.5 10^3/uL (1.5-8.5); NEUTROPHILS % 62.8 % (36.0-66.0); PLATELET COUNT, AUTOMATED 299 10^3/uL (150-450); RED BLOOD COUNT 4.31 10^6/uL (4.30-6.10); WHITE BLOOD COUNT 10.3 10^3/uL (4.0-10.0)
[2022-10-31 05:59] LABS: ALBUMIN 2.2 G/DL (3.2-5.2); ALKALINE PHOSPHATASE 79 U/L (46-116); ALT/SGPT 20 U/L (7.0-40); AST/SGOT 20 U/L (<34); BILIRUBIN,DIRECT 0.2 MG/DL (<0.4); BILIRUBIN,TOTAL 0.3 MG/DL (0.3-1.2); BLOOD UREA NITROGEN 11 MG/DL (9-23); CARBON DIOXIDE LEVEL 27 MMOL/L (20-31); CHLORIDE LEVEL 104 MMOL/L (98-107); CREATININE FOR GFR 0.94 MG/DL (0.70-1.30); GLOMERULAR FILTRATION RATE > 60.0 (>42); GLUCOSE, FASTING 93 MG/DL (74-106); MAGNESIUM LEVEL 1.3 MG/DL (1.8-2.4); POTASSIUM SERUM 4.4 MMOL/L (3.5-5.1); SODIUM LEVEL 139 MMOL/L (136-145)
[2022-10-31] MEDS: INSULIN LISPRO (NovoLOG) PER UNIT SC SCH ×2 (07:15→12:00)
[2022-10-31] MEDS: OMEPRAZOLE 20MG CAP PO SCH (08:01)
[2022-10-31] MEDS: MAG SULF 1GM/100ML (MAG RUN) 1 GM in IV 1 EA IV SCH ×2 (08:01→09:26)
[2022-10-31] MEDS ORDERED: BENAZEPRIL 20 MG TAB PO SCH (09:00)
[2022-10-31] MEDS ORDERED: oxyBUTYnin *DITROPAN XL* 5 MG TABCR PO SCH (09:00)
[2022-10-31] MEDS ORDERED: TAMSULOSIN 0.4 MG CAP PO SCH (09:00)
[2022-10-31] MEDS ORDERED: CEFD300CAP PO (12:15)
[2022-10-31] MEDS ORDERED: DOXY-444 PO (12:15)
[2022-10-31] MEDS ORDERED: PRED10TA2 PO (12:15)
[2022-10-31] MEDS ORDERED: ALBUTEROL 90 MCG/ACT 8GM HFA INHALER INH PRN (14:45)
[2022-10-31] MEDS ORDERED: cefTRIAXone SOD 1 GM in D5W MINI-BAG PLUS 50 ML IV SCH (15:00)
[2022-10-31] MEDS ORDERED: REMDESIVIR 100 MG in NS 250 ML IV SCH (20:00)
[2022-10-31] MEDS ORDERED: SODIUM CHLORIDE 0.9% INJ 10 ML SYR IV SCH (21:00)
[2022-10-31] MEDS ORDERED: DOXYCYCLINE HYCLATE 100MG TABLET PO SCH (21:00)
== END 2022-10-31 15:53 | disposition home or self-care (01) | DRG 177 ==
LOC: M ED 11:16 → EDBD 11:16 → M ED INP 15:50 → M PCU 17:52
PROVIDERS: ADMIT Internal Medicine; ATTEND Internal Medicine
DX: U07.1 COVID-19 (principal); J96.21 Acute and chronic respiratory failure with hypoxia; J12.82 Pneumonia due to coronavirus disease 2019; J15.6 Pneumonia due to other Gram-negative bacteria; C91.10 Chronic lymphocytic leukemia of B-cell type not having achieved remission; E11.9 Type 2 diabetes mellitus without complications; B18.2 Chronic viral hepatitis C; K74.60 Unspecified cirrhosis of liver; J44.9 Chronic obstructive pulmonary disease, unspecified; I10 Essential (primary) hypertension; E78.5 Hyperlipidemia, unspecified; K22.70 Barrett's esophagus without dysplasia; F17.200 Nicotine dependence, unspecified, uncomplicated; N40.0 Benign prostatic hyperplasia without lower urinary tract symptoms; Z79.899 Other long term (current) drug therapy; Z79.82 Long term (current) use of aspirin

== ENCOUNTER 2022-11-27 05:08 | Inpatient (IN) | payer MEDICARE ==
[~2022-11-27] VITALS: Ht 177.8 cm; Wt 84.0 kg
[2022-11-27] VITALS (14 sets, daily range): BP systolic 93–129; BP diastolic 56–81; O2SAT 95
[2022-11-27] MEDS ORDERED: IPRATROPIUM 0.5MG/ALBUTEROL 2.5MG INH SOL UD 3ML (DUONEB) NEB ONE (05:20)
[2022-11-27] MEDS ORDERED: methylPREDNISolone 125MG 2ML VIAL IV ONE (05:35)
[2022-11-27 05:48] LABS: BASO % 0.2 % (0.0-1.0); EOS % 0.2 % (0.0-3.0); HEMATOCRIT 37.9 % (42.0-52.0); HEMOGLOBIN 11.3 g/dl (13.5-17.5); LYMPH # 2.5 10^3/uL (1.5-5.0); LYMPH % 13.1 % (24.0-44.0); MEAN CORPUSCULAR HEMOGLOBIN 28.3 pg (27.0-33.0); MEAN CORPUSCULAR HGB CONC 29.8 g/dl (32.0-36.5); MONO % 8.3 % (2.0-8.0); NEUTROPHILS # 14.8 10^3/uL (1.5-8.5); NEUTROPHILS % 77.6 % (36.0-66.0); PLATELET COUNT, AUTOMATED 276 10^3/uL (150-450); RED BLOOD COUNT 3.99 10^6/uL (4.30-6.10); WHITE BLOOD COUNT 19.1 10^3/uL (4.0-10.0)
[2022-11-27 06:10] LABS: ALBUMIN 2.8 G/DL (3.2-5.2); BILIRUBIN,DIRECT 0.2 MG/DL (<0.4); BILIRUBIN,TOTAL 0.3 MG/DL (0.3-1.2); CALCIUM LEVEL 7.6 MG/DL (8.3-10.6); CK-MB VALUE MASS 9.3 NG/ML (<3.6); CREATININE FOR GFR 1.56 MG/DL (0.70-1.30); GLOMERULAR FILTRATION RATE 46.9 (>42); MB/CK RELATIVE INDEX 1.69 (< OR =4); POTASSIUM SERUM 5.3 MMOL/L (3.5-5.1); TOTAL PROTEIN 6.5 G/DL (5.7-8.2)
[2022-11-27] MEDS ORDERED: NS 1,000 ML IV ONE (06:25)
[2022-11-27 07:17] LABS: CK-MB VALUE MASS 6.7 NG/ML (<3.6)
[2022-11-27 07:18] LABS: MB/CK RELATIVE INDEX 1.58 (< OR =4)
[2022-11-27 07:29] LABS: MONO # 1.6 10^3/uL (0.0-0.8)
[2022-11-27] MEDS ORDERED: AZITHROMYCIN INJ 500 MG, VIAL MATE ADAPTER 1 EACH in D5W 250 ML IV ONE (07:30)
[2022-11-27] MEDS ORDERED: cefTRIAXone SOD 2 GM in D5W MINI-BAG PLUS 50 ML IV ONE (07:30)
[2022-11-27] MEDS ORDERED: PREG100C PO (08:28)
[2022-11-27] MEDS ORDERED: OXYC-517 PO (08:28)
[2022-11-27] MEDS ORDERED: HOME MED LIST COMPLETE! XX SCH (08:30)
[2022-11-27 09:19] LABS: CALCIUM LEVEL 7.1 MG/DL (8.3-10.6); CREATININE FOR GFR 1.46 MG/DL (0.70-1.30); GLOMERULAR FILTRATION RATE 50.7 (>42); POTASSIUM SERUM 5.2 MMOL/L (3.5-5.1)
[2022-11-27] MEDS: PANTOPRAZOLE 40MG VIAL IV SCH (09:20)
[2022-11-27] MEDS ORDERED: PATIROMER SORBITEX CALCIUM 8.4 GM POWDER PACKET (VELTASSA) PO ONE ×2 (10:10→14:00)
[2022-11-27] MEDS: LR 1,000 ML IV SCH ×2 (11:08→23:51)
[2022-11-27] MEDS: CEFEPIME HCL 2 GM in D5W MINI-BAG PLUS 50 ML IV SCH ×2 (11:09→21:22)
[2022-11-27] MEDS ORDERED: IPRATROPIUM 0.02% SOLN 0.5MG 2.5ML NEB NEB SCH (12:00)
[2022-11-27] MEDS ORDERED: ALBUTEROL SULFATE 2.5MG/0.5ML INH NEB SOLN NEB SCH (12:00)
[2022-11-27] MEDS: methylPREDNISolone 125MG 2ML VIAL IV SCH ×2 (12:38→21:22)
[2022-11-27] MEDS: HEPARIN SOD (PORCINE) 5000UNITS/ML 1ML VIAL/SYRINGE SC SCH ×2 (13:37→21:22)
[2022-11-27] MEDS: IPRATROPIUM 0.5MG/ALBUTEROL 2.5MG INH SOL UD 3ML (DUONEB) NEB SCH ×3 (15:17→23:13)
[2022-11-27] MEDS ORDERED: GLUCOSE 4GM CHEW TABLET PO PRN (17:15)
[2022-11-27] MEDS ORDERED: DEXTROSE 50% 50ML SYRINGE IV PRN (17:15)
[2022-11-27] MEDS ORDERED: GLUCAGON INJ 1MG VIAL SC PRN (17:15)
[2022-11-27] MEDS: INSULIN LISPRO (NovoLOG) PER UNIT SC SCH ×2 (17:59→21:00)
[2022-11-28] VITALS (11 sets, daily range): BP systolic 114–147; BP diastolic 56–82
[2022-11-28] MEDS: IPRATROPIUM 0.5MG/ALBUTEROL 2.5MG INH SOL UD 3ML (DUONEB) NEB SCH ×2 (03:18→07:28)
[2022-11-28] MEDS: HEPARIN SOD (PORCINE) 5000UNITS/ML 1ML VIAL/SYRINGE SC SCH ×3 (05:15→20:34)
[2022-11-28] MEDS: methylPREDNISolone 125MG 2ML VIAL IV SCH ×2 (05:16→16:58)
[2022-11-28 05:37] LABS: HEMATOCRIT 34.2 % (42.0-52.0); HEMOGLOBIN 10.5 g/dl (13.5-17.5); MEAN CORPUSCULAR HEMOGLOBIN 28.7 pg (27.0-33.0); MEAN CORPUSCULAR HGB CONC 30.7 g/dl (32.0-36.5); MEAN CORPUSCULAR VOLUME 93.4 fl (80.0-96.0); PLATELET COUNT, AUTOMATED 263 10^3/uL (150-450); RED BLOOD COUNT 3.66 10^6/uL (4.30-6.10); WHITE BLOOD COUNT 17.4 10^3/uL (4.0-10.0)
[2022-11-28 06:05] LABS: ALBUMIN 2.1 G/DL (3.2-5.2); ALKALINE PHOSPHATASE 70 U/L (46-116); ALT/SGPT < 9 U/L (7.0-40); AST/SGOT 57 U/L (<34); BILIRUBIN,TOTAL 0.2 MG/DL (0.3-1.2); BLOOD UREA NITROGEN 22 MG/DL (9-23); CALCIUM LEVEL 8.1 MG/DL (8.3-10.6); CARBON DIOXIDE LEVEL 29 MMOL/L (20-31); CHLORIDE LEVEL 102 MMOL/L (98-107); CREATININE FOR GFR 1.04 MG/DL (0.70-1.30); GLOMERULAR FILTRATION RATE > 60.0 (>42); GLUCOSE, FASTING 150 MG/DL (74-106); POTASSIUM SERUM 4.4 MMOL/L (3.5-5.1); SODIUM LEVEL 136 MMOL/L (136-145); TOTAL PROTEIN 5.4 G/DL (5.7-8.2)
[2022-11-28] MEDS ORDERED: CEFEPIME HCL 2 GM in D5W MINI-BAG PLUS 50 ML IV SCH (07:28)
[2022-11-28] MEDS: CEFEPIME HCL 2 GM in D5W MINI-BAG PLUS 50 ML IV SCH ×2 (08:47→16:59)
[2022-11-28] MEDS: PANTOPRAZOLE 40MG VIAL IV SCH (08:47)
[2022-11-28] MEDS: INSULIN LISPRO (NovoLOG) PER UNIT SC SCH ×5 (08:48→20:34)
[2022-11-28] MEDS ORDERED: IPRATROPIUM 0.5MG/ALBUTEROL 2.5MG INH SOL UD 3ML (DUONEB) NEB PRN (08:55)
[2022-11-28] MEDS: OMEPRAZOLE 20MG CAP PO SCH (10:05)
[2022-11-28] MEDS: BENAZEPRIL 20 MG TAB PO SCH (10:40)
[2022-11-28] MEDS: PREGABALIN 100 MG CAP (LYRICA) PO SCH ×2 (10:41→20:33)
[2022-11-28] MEDS: TAMSULOSIN 0.4 MG CAP PO SCH (10:41)
[2022-11-28] MEDS: oxyBUTYnin *DITROPAN XL* 5 MG TABCR PO SCH (10:41)
[2022-11-28] MEDS: SYMBICORT 160/4.5MCG INHALER 6GM INH SCH ×2 (11:20→20:51)
[2022-11-28] MEDS: TIOTROPIUM INHALER/CAPSULE (SPIRIVA) INH SCH (11:20)
[2022-11-28] MEDS ORDERED: methylPREDNISolone 125MG 2ML VIAL IV SCH (16:00)
[2022-11-28] MEDS: oxyCODONE 5MG TAB PO PRN (16:59)
[2022-11-28] MEDS: ATORVASTATIN 20 MG TAB PO SCH (20:33)
[2022-11-28] MEDS: ASPIRIN 81MG ENTERIC TABLET PO SCH (20:33)
[2022-11-28] MEDS ORDERED: RAMELTEON 8 MG TAB (ROZEREM) PO PRN (23:35)
[2022-11-29] MEDS: CEFEPIME HCL 2 GM in D5W MINI-BAG PLUS 50 ML IV SCH (00:24)
[2022-11-29] MEDS: guaiFENesin SYRUP 200MG 10ML UDC PO PRN ×2 (00:25→15:07)
[2022-11-29] MEDS: methylPREDNISolone 125MG 2ML VIAL IV SCH (05:33)
[2022-11-29] MEDS: HEPARIN SOD (PORCINE) 5000UNITS/ML 1ML VIAL/SYRINGE SC SCH ×3 (05:33→20:07)
[2022-11-29] MEDS: oxyCODONE 5MG TAB PO PRN ×2 (05:39→20:07)
[2022-11-29 05:57] VITALS: BP 128/73
[2022-11-29] MEDS ORDERED: LevoFLOXacin 750 MG TABLET PO SCH (06:00)
[2022-11-29 06:15] LABS: HEMOGLOBIN 10.4 g/dl (13.5-17.5); MEAN CORPUSCULAR HEMOGLOBIN 28.1 pg (27.0-33.0); MEAN CORPUSCULAR HGB CONC 30.6 g/dl (32.0-36.5); MEAN CORPUSCULAR VOLUME 91.9 fl (80.0-96.0); PLATELET COUNT, AUTOMATED 310 10^3/uL (150-450); WHITE BLOOD COUNT 23.7 10^3/uL (4.0-10.0)
[2022-11-29 06:43] LABS: ALBUMIN 2.1 G/DL (3.2-5.2); ALKALINE PHOSPHATASE 82 U/L (46-116); ALT/SGPT 17 U/L (7.0-40); AST/SGOT 36 U/L (<34); BILIRUBIN,TOTAL 0.3 MG/DL (0.3-1.2); BLOOD UREA NITROGEN 15 MG/DL (9-23); CALCIUM LEVEL 8.1 MG/DL (8.3-10.6); CARBON DIOXIDE LEVEL 28 MMOL/L (20-31); CHLORIDE LEVEL 103 MMOL/L (98-107); CREATININE FOR GFR 0.92 MG/DL (0.70-1.30); GLOMERULAR FILTRATION RATE > 60.0 (>42); GLUCOSE, FASTING 128 MG/DL (74-106); MAGNESIUM LEVEL 1.5 MG/DL (1.8-2.4); PHOSPHORUS LEVEL 2.5 MG/DL (2.4-5.1); POTASSIUM SERUM 4.4 MMOL/L (3.5-5.1); SODIUM LEVEL 135 MMOL/L (136-145); TOTAL PROTEIN 5.7 G/DL (5.7-8.2)
[2022-11-29] MEDS: TIOTROPIUM INHALER/CAPSULE (SPIRIVA) INH SCH (07:48)
[2022-11-29] MEDS: SYMBICORT 160/4.5MCG INHALER 6GM INH SCH ×2 (07:49→20:41)
[2022-11-29] MEDS ORDERED: MAGNESIUM OXIDE 400MG TAB (MAG-OX) PO ONE (08:40)
[2022-11-29] MEDS: PREGABALIN 100 MG CAP (LYRICA) PO SCH ×2 (09:04→20:06)
[2022-11-29] MEDS: INSULIN LISPRO (NovoLOG) PER UNIT SC SCH ×4 (09:04→20:08)
[2022-11-29] MEDS: oxyBUTYnin *DITROPAN XL* 5 MG TABCR PO SCH (09:04)
[2022-11-29] MEDS: TAMSULOSIN 0.4 MG CAP PO SCH (09:04)
[2022-11-29] MEDS: OMEPRAZOLE 20MG CAP PO SCH (09:04)
[2022-11-29] MEDS: BENAZEPRIL 20 MG TAB PO SCH (09:07)
[2022-11-29] MEDS: predniSONE 10MG TAB PO SCH (09:43)
[2022-11-29] MEDS ORDERED: E-Z-PAQUE 96% w/w SUSP 176GM BTL As Ordered ONE (10:38)
[2022-11-29] MEDS ORDERED: VARIBAR PUDDING 40% w/v 230ML TUBE As Ordered ONE (10:38)
[2022-11-29] MEDS ORDERED: VARIBAR NECTAR 40% w/v 240ML SUSP BTL As Ordered ONE (10:38)
[2022-11-29] MEDS ORDERED: BARIUM SULFATE 700 MG TABLET (E-Z-DISK) As Ordered ONE (10:38)
[2022-11-29 14:00] VITALS: BP 148/78
[2022-11-29] MEDS: ATORVASTATIN 20 MG TAB PO SCH (20:07)
[2022-11-29] MEDS: ASPIRIN 81MG ENTERIC TABLET PO SCH (20:07)
[2022-11-29 20:58] VITALS: BP 134/78
[2022-11-30] MEDS: guaiFENesin SYRUP 200MG 10ML UDC PO PRN (01:43)
[2022-11-30] MEDS: HEPARIN SOD (PORCINE) 5000UNITS/ML 1ML VIAL/SYRINGE SC SCH (05:48)
[2022-11-30 05:56] LABS: HEMATOCRIT 36.4 % (42.0-52.0); HEMOGLOBIN 10.9 g/dl (13.5-17.5); MEAN CORPUSCULAR HEMOGLOBIN 27.7 pg (27.0-33.0); MEAN CORPUSCULAR HGB CONC 29.9 g/dl (32.0-36.5); MEAN CORPUSCULAR VOLUME 92.4 fl (80.0-96.0); PLATELET COUNT, AUTOMATED 327 10^3/uL (150-450); RED BLOOD COUNT 3.94 10^6/uL (4.30-6.10); WHITE BLOOD COUNT 17.9 10^3/uL (4.0-10.0)
[2022-11-30 06:26] LABS: ALBUMIN 2.1 G/DL (3.2-5.2); ALKALINE PHOSPHATASE 81 U/L (46-116); ALT/SGPT 18 U/L (7.0-40); AST/SGOT 22 U/L (<34); BILIRUBIN,TOTAL 0.3 MG/DL (0.3-1.2); BLOOD UREA NITROGEN 21 MG/DL (9-23); CALCIUM LEVEL 8.3 MG/DL (8.3-10.6); CARBON DIOXIDE LEVEL 30 MMOL/L (20-31); CHLORIDE LEVEL 105 MMOL/L (98-107); CREATININE FOR GFR 0.92 MG/DL (0.70-1.30); GLOMERULAR FILTRATION RATE > 60.0 (>42); GLUCOSE, FASTING 107 MG/DL (74-106); SODIUM LEVEL 138 MMOL/L (136-145); TOTAL PROTEIN 5.7 G/DL (5.7-8.2)
[2022-11-30 06:39] VITALS: BP 158/78
[2022-11-30] MEDS: SYMBICORT 160/4.5MCG INHALER 6GM INH SCH (07:39)
[2022-11-30] MEDS: TIOTROPIUM INHALER/CAPSULE (SPIRIVA) INH SCH (07:39)
[2022-11-30] MEDS: INSULIN LISPRO (NovoLOG) PER UNIT SC SCH (07:44)
[2022-11-30 07:54] VITALS: BP 152/76
[2022-11-30] MEDS: oxyCODONE 5MG TAB PO PRN (08:11)
[2022-11-30] MEDS ORDERED: AUGMENTIN 500MG TAB PO SCH (09:00)
[2022-11-30] MEDS: predniSONE 10MG TAB PO SCH (09:06)
[2022-11-30] MEDS: oxyBUTYnin *DITROPAN XL* 5 MG TABCR PO SCH (09:07)
[2022-11-30 09:08] VITALS: BP 152/76
[2022-11-30] MEDS: BENAZEPRIL 20 MG TAB PO SCH (09:08)
[2022-11-30] MEDS: PREGABALIN 100 MG CAP (LYRICA) PO SCH (09:09)
[2022-11-30] MEDS: OMEPRAZOLE 20MG CAP PO SCH (09:11)
[2022-11-30] MEDS: TAMSULOSIN 0.4 MG CAP PO SCH (09:11)
[2022-11-30] MEDS ORDERED: PRED20TA PO (09:51)
[2022-11-30] MEDS ORDERED: AMOX500T2 PO (09:51)
== END 2022-11-30 12:05 | disposition home or self-care (01) | DRG 871 ==
LOC: M ED 05:08 → EDBD 05:08 → M ED INP 08:16 → ENRESERV 10:38 → M ICU 11:20 → M MS5PR 11-28 12:00
PROVIDERS: ADMIT Internal Medicine Pulmonary Disease; ATTEND Family Medicine
DX: A41.59 Other Gram-negative sepsis (principal); J96.22 Acute and chronic respiratory failure with hypercapnia; J15.0 Pneumonia due to Klebsiella pneumoniae; G93.41 Metabolic encephalopathy; C91.10 Chronic lymphocytic leukemia of B-cell type not having achieved remission; J44.1 Chronic obstructive pulmonary disease with (acute) exacerbation; N17.9 Acute kidney failure, unspecified; J44.0 Chronic obstructive pulmonary disease with (acute) lower respiratory infection; F11.20 Opioid dependence, uncomplicated; I10 Essential (primary) hypertension; K74.60 Unspecified cirrhosis of liver; K21.9 Gastro-esophageal reflux disease without esophagitis; E78.5 Hyperlipidemia, unspecified; N40.0 Benign prostatic hyperplasia without lower urinary tract symptoms; G89.29 Other chronic pain; Z79.82 Long term (current) use of aspirin; Z79.899 Other long term (current) drug therapy; F17.200 Nicotine dependence, unspecified, uncomplicated; E87.5 Hyperkalemia

== ENCOUNTER → 2022-12-24 | Outpatient (REF) | payer MEDICARE ==
[~2022-12-24] MED LIST changes: +AMOX500T2 PO; +OXYC-517 PO; +PREG100C PO
[2022-12-24 14:04] LABS: BLOOD UREA NITROGEN 9 MG/DL (9-23); CALCIUM LEVEL 8.4 MG/DL (8.3-10.6); CARBON DIOXIDE LEVEL 29 MMOL/L (20-31); CHLORIDE LEVEL 102 MMOL/L (98-107); CREATININE FOR GFR 0.94 MG/DL (0.70-1.30); GLOMERULAR FILTRATION RATE > 60.0 (>42); GLUCOSE, FASTING 106 MG/DL (74-106); POTASSIUM SERUM 4.9 MMOL/L (3.5-5.1); SODIUM LEVEL 138 MMOL/L (136-145)
== END ==
LOC: M SFHCADAM 10:01
PROVIDERS: ATTEND Physician Assistant Medical
DX: R59.0 Localized enlarged lymph nodes (principal); W57.XXXA Bitten or stung by nonvenomous insect and other nonvenomous arthropods, initial encounter

== ENCOUNTER → 2022-12-25 | Outpatient (CLI) | payer MEDICARE ==
[~2022-12-25] MED LIST changes: +ISOVUE-370 76% 100ML VIAL As Ordered ONE
== END ==
LOC: M RAD 13:52
PROVIDERS: ATTEND Physician Assistant Medical
DX: R59.0 Localized enlarged lymph nodes (principal)
CPT/HCPCS: 71260; Q9967

== ENCOUNTER → 2023-03-19 | Outpatient (REF) | payer MEDICARE ==
[~2023-03-19] MED LIST changes: -DOXY100C81 PO; +DOXY100C82 PO; -ISOVUE-370 76% 100ML VIAL As Ordered ONE
[2023-03-19 13:32] LABS: BASO # 0.1 10^3/uL (0.0-0.2); BASO % 0.5 % (0.0-1.0); EOS # 0.4 10^3/uL (0.0-0.5); EOS % 2.7 % (0.0-3.0); HEMATOCRIT 38.4 % (42.0-52.0); HEMOGLOBIN 11.7 g/dl (13.5-17.5); LYMPH # 4.6 10^3/uL (1.5-5.0); LYMPH % 34.4 % (24.0-44.0); MEAN CORPUSCULAR HEMOGLOBIN 30.2 pg (27.0-33.0); MEAN CORPUSCULAR HGB CONC 30.5 g/dl (32.0-36.5); MONO # 1.4 10^3/uL (0.0-0.8); MONO % 10.6 % (2.0-8.0); NEUTROPHILS # 6.9 10^3/uL (1.5-8.5); NEUTROPHILS % 51.5 % (36.0-66.0); PLATELET COUNT, AUTOMATED 261 10^3/uL (150-450); RED BLOOD COUNT 3.88 10^6/uL (4.30-6.10); WHITE BLOOD COUNT 13.3 10^3/uL (4.0-10.0)
[2023-03-19 13:40] LABS: ALBUMIN 2.7 G/DL (3.2-5.2); BILIRUBIN,TOTAL 0.3 MG/DL (0.3-1.2); CALCIUM LEVEL 8.6 MG/DL (8.3-10.6); CHOLESTEROL RISK RATIO 2.39 (<5); CREATININE FOR GFR 1.38 MG/DL (0.70-1.30); GLOMERULAR FILTRATION RATE 54.1 (>42); HDL CHOLESTEROL 34.6 MG/DL (>40); LDL CHOLESTEROL 35.4 MG/DL (<100); MAGNESIUM LEVEL 1.5 MG/DL (1.8-2.4); NON-HDL-C 48.4 MG/DL; PERCENT SATURATION 7.7 % (19.7-50.0); POTASSIUM SERUM 5.6 MMOL/L (3.5-5.1); TOTAL PROTEIN 5.9 G/DL (5.7-8.2)
[2023-03-19 14:06] LABS: HEMOGLOBIN A1c 5.8 % (4.0-6.0)
== END ==
LOC: M SFHCADAM 08:14
PROVIDERS: ATTEND Physician Assistant Medical
DX: K74.60 Unspecified cirrhosis of liver (principal); E11.9 Type 2 diabetes mellitus without complications; I10 Essential (primary) hypertension; F17.210 Nicotine dependence, cigarettes, uncomplicated; E55.9 Vitamin D deficiency, unspecified; E46 Unspecified protein-calorie malnutrition; M51.37 Other intervertebral disc degeneration, lumbosacral region

== ENCOUNTER → 2023-03-26 | Outpatient (REF) | payer MEDICARE ==
[2023-03-26 12:41] LABS: CALCIUM LEVEL 8.1 MG/DL (8.3-10.6); CREATININE FOR GFR 1.38 MG/DL (0.70-1.30); GLOMERULAR FILTRATION RATE 54.1 (>42); POTASSIUM SERUM 4.4 MMOL/L (3.5-5.1)
== END ==
LOC: M SFHCADAM 10:08
PROVIDERS: ATTEND Physician Assistant Medical
DX: E87.5 Hyperkalemia (principal)

== ENCOUNTER → 2023-03-26 | Outpatient (CLI) | payer MEDICARE ==
[~2023-03-26] MED LIST changes: +TUMS500C PO
== END ==
LOC: M ADAMS 10:12
PROVIDERS: ATTEND Physician Assistant Medical
DX: J96.11 Chronic respiratory failure with hypoxia (principal)

== ENCOUNTER 2023-04-03 00:47 | Emergency (ER) | payer MEDICARE ==
[~2023-04-03] VITALS: Ht 177.8 cm; Wt 73.0 kg
[~2023-04-03 00:47] MED LIST changes: -TUMS500C PO
[2023-04-03 01:25] LABS: BASO % 0.2 % (0.0-1.0); HEMATOCRIT 33.8 % (42.0-52.0); HEMOGLOBIN 11.4 g/dl (13.5-17.5); LYMPH # 0.9 10^3/uL (1.5-5.0); LYMPH % 3.7 % (24.0-44.0); MEAN CORPUSCULAR HEMOGLOBIN 29.9 pg (27.0-33.0); MEAN CORPUSCULAR HGB CONC 33.7 g/dl (32.0-36.5); MEAN CORPUSCULAR VOLUME 88.7 fl (80.0-96.0); MONO # 0.3 10^3/uL (0.0-0.8); MONO % 1.1 % (2.0-8.0); NEUTROPHILS # 22.3 10^3/uL (1.5-8.5); NEUTROPHILS % 93.6 % (36.0-66.0); PLATELET COUNT, AUTOMATED 227 10^3/uL (150-450); RED BLOOD COUNT 3.81 10^6/uL (4.30-6.10); WHITE BLOOD COUNT 23.8 10^3/uL (4.0-10.0)
[2023-04-03] MEDS ORDERED: NS IV ONE (01:45)
[2023-04-03] MEDS ORDERED: methylPREDNISolone 125MG 2ML VIAL IV ONE (01:50)
[2023-04-03 01:55] LABS: ALBUMIN 2.1 G/DL (3.2-5.2); BILIRUBIN,DIRECT 2.3 MG/DL (<0.4); BILIRUBIN,TOTAL 2.6 MG/DL (0.3-1.2); CALCIUM LEVEL 7.3 MG/DL (8.3-10.6); CK-MB VALUE MASS 5.9 NG/ML (<3.6); CREATININE FOR GFR 1.35 MG/DL (0.70-1.30); GLOMERULAR FILTRATION RATE 55.5 (>42); POTASSIUM SERUM 3.2 MMOL/L (3.5-5.1); TOTAL PROTEIN 5.8 G/DL (5.7-8.2)
[2023-04-03 01:57] LABS: THYROID STIMULATING HORMONE 0.154 uIU/ML (0.55-4.78)
[2023-04-03] MEDS ORDERED: ALBUTEROL SULFATE 2.5MG/0.5ML INH NEB SOLN INH ONE (02:00)
[2023-04-03] MEDS ORDERED: IPRATROPIUM 0.5MG/ALBUTEROL 2.5MG INH SOL UD 3ML (DUONEB) NEB ONE (02:00)
[2023-04-03 02:07] LABS: MB/CK RELATIVE INDEX 0.34 (< OR =4)
[2023-04-03 02:28] LABS: ABG BASE EXCESS 0.1 (-2.0-2.0); ABG HCO3 24.7 MMOL/L (22.0-26.0); ABG O2 SATURATION 97.7 % (95.0-99.0); ABG PARTIAL PRESSURE O2 103.9 mmHg (75.0-100.0); ABG STANDARD HCO3 24.6 MMOL/L. (22.0-26.0); ABG pH (ARTERIAL) 7.409 UNITS (7.350-7.450)
[2023-04-03] MEDS ORDERED: cefTRIAXone SOD 2 GM in D5W MINI-BAG PLUS 50 ML IV ONE (03:00)
[2023-04-03 04:21] LABS: FREE T4 1.25 NG/DL (0.89-1.76)
[2023-04-03] MEDS ORDERED: ISOVUE-370 76% 100ML VIAL As Ordered ONE (06:16)
[2023-04-03] MEDS ORDERED: TUMS500C PO (06:27)
[2023-04-03] MEDS ORDERED: HOME MED LIST COMPLETE! XX SCH (06:30)
[2023-04-03] MEDS ORDERED: PIPERACILLIN/TAZOBACTAM SOD 3.375 GM in D5W MINI-BAG PLUS 50 ML IV ONE ×2 (07:00→13:00)
[2023-04-03] MEDS ORDERED: MIDAZOLAM INJ 2MG/2ML VIAL IV STA (10:02)
[2023-04-03] MEDS ORDERED: LORazepam 2 MG/ML 1ML VIAL IV STA (10:02)
[2023-04-03 11:22] LABS: BASO # 0.2 10^3/uL (0.0-0.2); BASO % 0.3 % (0.0-1.0); HEMATOCRIT 33.6 % (42.0-52.0); HEMOGLOBIN 10.9 g/dl (13.5-17.5); LYMPH # 1.5 10^3/uL (1.5-5.0); MEAN CORPUSCULAR HEMOGLOBIN 29.1 pg (27.0-33.0); MEAN CORPUSCULAR HGB CONC 32.4 g/dl (32.0-36.5); MEAN CORPUSCULAR VOLUME 89.8 fl (80.0-96.0); MONO # 0.8 10^3/uL (0.0-0.8); MONO % 1.7 % (2.0-8.0); NEUTROPHILS # 44.8 10^3/uL (1.5-8.5); NEUTROPHILS % 93.3 % (36.0-66.0); PLATELET COUNT, AUTOMATED 219 10^3/uL (150-450); RED BLOOD COUNT 3.74 10^6/uL (4.30-6.10)
[2023-04-03 11:47] LABS: ALBUMIN 1.9 G/DL (3.2-5.2); BILIRUBIN,TOTAL 2.7 MG/DL (0.3-1.2); CALCIUM LEVEL 7.5 MG/DL (8.3-10.6); CREATININE FOR GFR 1.27 MG/DL (0.70-1.30); GLOMERULAR FILTRATION RATE 59.5 (>42); POTASSIUM SERUM 3.7 MMOL/L (3.5-5.1); TOTAL PROTEIN 5.5 G/DL (5.7-8.2)
[2023-04-03] MEDS ORDERED: NS 1,000 ML IV SCH (11:55)
[2023-04-03 14:23] VITALS: BP 138/86; TEMP 98.3; O2SAT 98
== END 2023-04-03 14:30 | disposition short-term general hospital (02) ==
LOC: M ED 00:47
DX: A41.9 Sepsis, unspecified organism (principal); R55 Syncope and collapse; R00.0 Tachycardia, unspecified; I48.91 Unspecified atrial fibrillation; E11.9 Type 2 diabetes mellitus without complications; I10 Essential (primary) hypertension; E78.5 Hyperlipidemia, unspecified; N40.0 Benign prostatic hyperplasia without lower urinary tract symptoms; K21.9 Gastro-esophageal reflux disease without esophagitis; J44.9 Chronic obstructive pulmonary disease, unspecified; F17.200 Nicotine dependence, unspecified, uncomplicated; Z79.52 Long term (current) use of systemic steroids; Z79.4 Long term (current) use of insulin; Z79.82 Long term (current) use of aspirin; Z79.02 Long term (current) use of antithrombotics/antiplatelets; Z79.899 Other long term (current) drug therapy
CPT/HCPCS: 36600; 70450; 71045; 71275; 72125; 74177; 74181; 76705; 80053; 81001; 82248; 82550; 82553; 82803; 83605; 83690; 84439; 84443; 84484; 85025; 87040; 87077; 87186; 87486; 87581; 87633; 87798; 93005; 94640; 96365; 96366; 96375; 99285; J0696; J2060; J2543; J2930; Q9967

== ENCOUNTER 2023-04-12 14:03 | Emergency (ER) | payer MEDICARE ==
[~2023-04-12] VITALS: Ht 180.3 cm; Wt 70.8 kg
[~2023-04-12 14:03] MED LIST changes: +TUMS500C PO
[2023-04-12 19:46] VITALS: BP 172/80; TEMP 96.5; O2SAT 98
== END 2023-04-12 19:50 | disposition home or self-care (01) ==
LOC: M ED 14:03
DX: R33.9 Retention of urine, unspecified (principal); E11.9 Type 2 diabetes mellitus without complications; I10 Essential (primary) hypertension; J44.9 Chronic obstructive pulmonary disease, unspecified; E78.5 Hyperlipidemia, unspecified; F17.200 Nicotine dependence, unspecified, uncomplicated; Z86.79 Personal history of other diseases of the circulatory system; Z87.19 Personal history of other diseases of the digestive system; Z79.52 Long term (current) use of systemic steroids; Z79.4 Long term (current) use of insulin; Z79.899 Other long term (current) drug therapy

== ENCOUNTER → 2023-04-22 | Outpatient (REF) | payer MEDICARE ==
[~2023-04-22] MED LIST changes: -PREG100C PO; +PREG100C2 PO
[2023-04-22 14:46] LABS: BASO # 0.1 10^3/uL (0.0-0.2); BASO % 0.7 % (0.0-1.0); EOS # 0.3 10^3/uL (0.0-0.5); EOS % 3.1 % (0.0-3.0); HEMATOCRIT 34.8 % (42.0-52.0); HEMOGLOBIN 11.1 g/dl (13.5-17.5); LYMPH % 29.4 % (24.0-44.0); MEAN CORPUSCULAR HGB CONC 31.9 g/dl (32.0-36.5); MEAN CORPUSCULAR VOLUME 97.2 fl (80.0-96.0); MONO % 9.6 % (2.0-8.0); NEUTROPHILS # 5.7 10^3/uL (1.5-8.5); NEUTROPHILS % 56.6 % (36.0-66.0); PLATELET COUNT, AUTOMATED 474 10^3/uL (150-450); RED BLOOD COUNT 3.58 10^6/uL (4.30-6.10); WHITE BLOOD COUNT 10.1 10^3/uL (4.0-10.0)
[2023-04-22 15:10] LABS: ALBUMIN 2.3 G/DL (3.2-5.2); ALKALINE PHOSPHATASE 255 U/L (46-116); ALT/SGPT 17 U/L (7.0-40); AST/SGOT 16 U/L (<34); BILIRUBIN,TOTAL 0.3 MG/DL (0.3-1.2); BLOOD UREA NITROGEN 20 MG/DL (9-23); CALCIUM LEVEL 8.4 MG/DL (8.3-10.6); CARBON DIOXIDE LEVEL 29 MMOL/L (20-31); CHLORIDE LEVEL 102 MMOL/L (98-107); CREATININE FOR GFR 0.99 MG/DL (0.70-1.30); GLOMERULAR FILTRATION RATE > 60.0 (>42); GLUCOSE, FASTING 125 MG/DL (74-106); SODIUM LEVEL 138 MMOL/L (136-145); TOTAL PROTEIN 6.3 G/DL (5.7-8.2)
== END ==
LOC: M SFHCADAM 11:29
PROVIDERS: ATTEND Physician Assistant Medical
DX: K83.09 Other cholangitis (principal); J96.12 Chronic respiratory failure with hypercapnia; E55.9 Vitamin D deficiency, unspecified; K74.60 Unspecified cirrhosis of liver

== ENCOUNTER → 2023-10-07 | Outpatient (REF) | payer MEDICARE ==
[~2023-10-07] MED LIST changes: +CEFD1CAP9 PO; -CEFD300C41 PO; -OXYB5TAB10 PO; +OXYB5TAB14 PO
[2023-10-07 13:24] LABS: BASO # 0.1 10^3/uL (0.0-0.2); BASO % 0.5 % (0.0-1.0); EOS # 0.4 10^3/uL (0.0-0.5); EOS % 3.3 % (0.0-3.0); HEMATOCRIT 39.4 % (42.0-52.0); HEMOGLOBIN 11.6 g/dl (13.5-17.5); LYMPH # 5.5 10^3/uL (1.5-5.0); LYMPH % 42.2 % (24.0-44.0); MEAN CORPUSCULAR HEMOGLOBIN 28.4 pg (27.0-33.0); MEAN CORPUSCULAR HGB CONC 29.4 g/dl (32.0-36.5); MEAN CORPUSCULAR VOLUME 96.6 fl (80.0-96.0); MONO # 1.2 10^3/uL (0.0-0.8); MONO % 9.3 % (2.0-8.0); NEUTROPHILS # 5.8 10^3/uL (1.5-8.5); NEUTROPHILS % 44.4 % (36.0-66.0); PLATELET COUNT, AUTOMATED 295 10^3/uL (150-450); RED BLOOD COUNT 4.08 10^6/uL (4.30-6.10)
[2023-10-07 13:27] LABS: HEMOGLOBIN A1c 5.6 % (4.0-6.0)
[2023-10-07 13:52] LABS: FERRITIN 6.8 NG/ML (10.5-307.3); FOLATE 13.2 NG/ML (>5.4); FREE T4 0.89 NG/DL (0.89-1.76); THYROID STIMULATING HORMONE 3.925 uIU/ML (0.55-4.78); TOTAL 25(OH) VITAMIN D 17.3 NG/ML (20.0-100.0)
[2023-10-07 14:01] LABS: ALBUMIN 2.9 G/DL (3.2-5.2); BILIRUBIN,TOTAL 0.2 MG/DL (0.3-1.2); CALCIUM LEVEL 8.6 MG/DL (8.3-10.6); CREATININE FOR GFR 1.28 MG/DL (0.70-1.30); LDL CHOLESTEROL 55.8 MG/DL (<100); PERCENT SATURATION 8.8 % (19.7-50.0); POTASSIUM SERUM 5.8 MMOL/L (3.5-5.1); TOTAL PROTEIN 6.4 G/DL (5.7-8.2)
== END ==
LOC: M SFHCADAM 09:30
PROVIDERS: ATTEND Physician Assistant Medical
DX: I10 Essential (primary) hypertension (principal); K74.60 Unspecified cirrhosis of liver; E11.9 Type 2 diabetes mellitus without complications; D63.8 Anemia in other chronic diseases classified elsewhere

== ENCOUNTER → 2023-10-15 | Outpatient (REF) | payer MEDICARE ==
[2023-10-15 15:40] LABS: CALCIUM LEVEL 8.3 MG/DL (8.3-10.6); CREATININE FOR GFR 1.32 MG/DL (0.70-1.30); GLOMERULAR FILTRATION RATE 56.9 (>42); POTASSIUM SERUM 4.7 MMOL/L (3.5-5.1)
[2023-10-15 15:41] LABS: CREATININE, URINE 99.4 MG/DL
== END ==
LOC: M SFHCADAM 11:51
PROVIDERS: ATTEND Physician Assistant Medical
DX: E87.5 Hyperkalemia (principal); I10 Essential (primary) hypertension; E11.9 Type 2 diabetes mellitus without complications; D63.8 Anemia in other chronic diseases classified elsewhere; K74.60 Unspecified cirrhosis of liver

== ENCOUNTER → 2024-01-08 | Outpatient (REF) | payer MEDICARE ==
[~2024-01-08] MED LIST changes: +DOXY-323 PO; +DOXY-440 PO; -DOXY-443 PO; -DOXY-444 PO
[2024-01-08 14:52] LABS: BASO # 0.1 10^3/uL (0.0-0.2); BASO % 0.6 % (0.0-1.0); EOS # 0.2 10^3/uL (0.0-0.5); EOS % 1.6 % (0.0-3.0); HEMATOCRIT 42.1 % (42.0-52.0); HEMOGLOBIN 12.9 g/dl (13.5-17.5); LYMPH # 4.4 10^3/uL (1.5-5.0); LYMPH % 32.9 % (24.0-44.0); MEAN CORPUSCULAR HGB CONC 30.6 g/dl (32.0-36.5); MEAN CORPUSCULAR VOLUME 94.6 fl (80.0-96.0); MONO # 1.1 10^3/uL (0.0-0.8); MONO % 8.1 % (2.0-8.0); NEUTROPHILS # 7.6 10^3/uL (1.5-8.5); NEUTROPHILS % 56.5 % (36.0-66.0); PLATELET COUNT, AUTOMATED 201 10^3/uL (150-450); RED BLOOD COUNT 4.45 10^6/uL (4.30-6.10); WHITE BLOOD COUNT 13.4 10^3/uL (4.0-10.0)
[2024-01-08 14:54] LABS: ALKALINE PHOSPHATASE 84 U/L (46-116); ALT/SGPT 16 U/L (7.0-40); AST/SGOT 15 U/L (<34); BILIRUBIN,TOTAL 0.6 MG/DL (0.3-1.2); BLOOD UREA NITROGEN 10 MG/DL (9-23); CARBON DIOXIDE LEVEL 32 MMOL/L (20-31); CHLORIDE LEVEL 99 MMOL/L (98-107); CHOLESTEROL LEVEL 105 MG/DL (<200); CHOLESTEROL RISK RATIO 2.69 (<5); CREATININE FOR GFR 0.91 MG/DL (0.70-1.30); GLOMERULAR FILTRATION RATE > 60.0 (>42); GLUCOSE, FASTING 109 MG/DL (74-106); LDL CHOLESTEROL 46.8 MG/DL (<100); PROSTATIC SPECIFIC AG MONITOR 0.55 NG/ML (< 4.00); SODIUM LEVEL 133 MMOL/L (136-145); TOTAL PROTEIN 6.7 G/DL (5.7-8.2); TRIGLYCERIDES LEVEL 96 MG/DL (<150)
[2024-01-08 14:56] LABS: TOTAL 25(OH) VITAMIN D 14.2 NG/ML (20.0-100.0)
[2024-01-08 15:30] LABS: HEMOGLOBIN A1c 5.7 % (4.0-6.0)
== END ==
LOC: M SFHCADAM 09:15
PROVIDERS: ATTEND Physician Assistant Medical
DX: K74.60 Unspecified cirrhosis of liver (principal); I10 Essential (primary) hypertension; E11.9 Type 2 diabetes mellitus without complications; N13.8 Other obstructive and reflux uropathy; N40.1 Benign prostatic hyperplasia with lower urinary tract symptoms

== ENCOUNTER → 2024-02-25 | Outpatient (CLI) | payer MEDICARE ==
[2024-02-25 14:20] LABS: ABG BASE EXCESS 2.1 (-2.0-2.0); ABG HCO3 27.4 MMOL/L (22.0-26.0); ABG O2 SATURATION 89.8 % (95.0-99.0); ABG PARTIAL PRESSURE CO2 45.1 mmHg (35.0-45.0); ABG PARTIAL PRESSURE O2 55.1 mmHg (75.0-100.0); ABG STANDARD HCO3 26.2 MMOL/L. (22.0-26.0); ABG TOTAL CO2 28.8 MMOL/L (23.0-31.0); ABG pH (ARTERIAL) 7.401 UNITS (7.350-7.450)
== END ==
LOC: M CARPUL 13:49
PROVIDERS: ATTEND Internal Medicine Pulmonary Disease
DX: J44.9 Chronic obstructive pulmonary disease, unspecified (principal)

== ENCOUNTER → 2024-04-17 | Outpatient (CLI) | payer MEDICARE | LOC: M RAD 10:48 | PROVIDERS: ATTEND Internal Medicine Pulmonary Disease | DX: R91.8 Other nonspecific abnormal finding of lung field (principal); I25.84 Coronary atherosclerosis due to calcified coronary lesion ==

== ENCOUNTER 2024-10-13 09:09 | Inpatient (IN) | payer MEDICARE ==
[~2024-10-13] VITALS: Ht 180.3 cm; Wt 72.8 kg
[~2024-10-13 09:09] MED LIST changes: -DOXY-323 PO; +DOXY-441 PO
[2024-10-13] MEDS ORDERED: ISOVUE-370 76% 100ML VIAL As Ordered ONE (09:59)
[2024-10-13] MEDS: LIDOCAINE 2% 5ML JELLY UROJET TOP ONE (11:40)
[2024-10-13 12:26] LABS: BASO # 0.1 10^3/uL (0.0-0.2); BASO % 0.5 % (0.0-1.0); EOS # 0.1 10^3/uL (0.0-0.5); EOS % 0.5 % (0.0-3.0); HEMATOCRIT 40.3 % (42.0-52.0); HEMOGLOBIN 12.5 g/dl (13.5-17.5); LYMPH # 3.3 10^3/uL (1.5-5.0); LYMPH % 28.7 % (24.0-44.0); MEAN CORPUSCULAR HEMOGLOBIN 29.8 pg (27.0-33.0); MONO # 0.9 10^3/uL (0.0-0.8); MONO % 8.1 % (2.0-8.0); NEUTROPHILS # 7.1 10^3/uL (1.5-8.5); NEUTROPHILS % 61.8 % (36.0-66.0); PLATELET COUNT, AUTOMATED 337 10^3/uL (150-450); WHITE BLOOD COUNT 11.4 10^3/uL (4.0-10.0)
[2024-10-13 12:44] LABS: INR 0.91; PARTIAL THROMBOPLASTIN TIME 26.4 SECONDS (24.8-34.2); PROTHROMBIN TIME 12.6 SECONDS (12.5-14.5)
[2024-10-13 12:50] LABS: ALKALINE PHOSPHATASE 75 U/L (40-129); ALT/SGPT 14 U/L (7.0-40); AST/SGOT 19 U/L (<34); BILIRUBIN,DIRECT 0.3 MG/DL (<0.4); BILIRUBIN,TOTAL 0.6 MG/DL (0.3-1.2); BLOOD UREA NITROGEN 20 MG/DL (9-23); CARBON DIOXIDE LEVEL 31 MMOL/L (20-31); CHLORIDE LEVEL 101 MMOL/L (98-107); CREATININE FOR GFR 0.91 MG/DL (0.70-1.30); GLOMERULAR FILTRATION RATE > 60.0 (>42); GLUCOSE, FASTING 99 MG/DL (74-106); POTASSIUM SERUM 4.6 MMOL/L (3.5-5.1); SODIUM LEVEL 140 MMOL/L (136-145); TOTAL PROTEIN 6.7 G/DL (5.7-8.2)
[2024-10-13 13:00] LABS: KETONE, URINE AUTO RFX NEGATIVE (NEGATIVE); LEUKOCYTE ESTERASE UR AUTO RFX NEGATIVE (NEGATIVE); NITRITE, URINE AUTO RFX NEGATIVE (NEGATIVE); RBC, URINE AUTO RFX 1 /HPF (0-3); SQUAM EPITHELIAL CELL UR AURFX 0 /HPF (0-6); WBC, URINE AUTO RFX 1 /HPF (0-3)
[2024-10-13 13:35] LABS: ETHYL ALCOHOL (ETHANOL) 0.006 % (0.000-0.010)
[2024-10-13 13:37] LABS: SALICYLATE LEVEL < 3.0 MG/DL (<30)
[2024-10-13 14:44] LABS: THYROID STIMULATING HORMONE 0.142 uIU/ML (0.55-4.78)
[2024-10-13 15:38] LABS: VENOUS BASE EXCESS 5.9 (-2.0-2.0); VENOUS HCO3 31.4 MMOL/L (23.0-27.0); VENOUS O2 SATURATION 88.2 % (60.0-80.0); VENOUS PARTIAL PRESSURE CO2 48.9 mmHg (38.0-50.0); VENOUS PARTIAL PRESSURE O2 54.4 mmHg (30.0-50.0); VENOUS PH 7.425 UNITS (7.330-7.430); VENOUS STANDARD HCO3 29.6 MMOL/L; VENOUS TOTAL CO2 32.9 MMOL/L (24.0-28.0)
[2024-10-13 16:15] LABS: FREE T4 1.19 NG/DL (0.89-1.76)
[2024-10-13 16:22] LABS: AMPHETAMINES LEVEL URINE NEGATIVE (NEGATIVE)
[2024-10-13 16:23] LABS: BARBITURATES URINE NEGATIVE (NEGATIVE); BENZODIAZEPINES URINE NEGATIVE (NEGATIVE); CANNABINOIDS URINE NEGATIVE (NEGATIVE); COCAINE METABOLITE URINE NEGATIVE (NEGATIVE); METHADONE URINE NEGATIVE (NEGATIVE); PHENCYCLIDINE URINE NEGATIVE (NEGATIVE)
[2024-10-13 16:27] LABS: OPIATES URINE POSITIVE (NEGATIVE)
[2024-10-13] MEDS: BENAZEPRIL 5MG TAB PO ONE (17:03)
[2024-10-13] MEDS ORDERED: MED REC CURRENTLY UNOBTAINABLE XX SCH (17:30)
[2024-10-13] MEDS ORDERED: ACETAMINOPHEN 325 MG TAB PO PRN (17:50)
[2024-10-13] MEDS ORDERED: cefTRIAXone SOD 1 GM in DEXTROSE 5% (D5W) ADV/MINI-BAG 50 ML IV SCH (17:55)
[2024-10-13] MEDS ORDERED: DEXTROSE 50% 50ML SYRINGE IV PRN (18:40)
[2024-10-13] MEDS ORDERED: GLUCOSE 4 GM CHEW PO PRN (18:40)
[2024-10-13] MEDS ORDERED: GLUCAGON INJ 1MG VIAL SC PRN (18:40)
[2024-10-13 20:24] VITALS: BP 164/89; TEMP 98.6; O2SAT 90
[2024-10-13] MEDS: IPRATROPIUM 0.5MG/ALBUTEROL 2.5MG INH SOL UD 3ML (DUONEB) NEB SCH (20:49)
[2024-10-13] MEDS: SYMBICORT 160/4.5MCG INHALER 6GM INH SCH (20:49)
[2024-10-13] MEDS: LABETALOL 100MG TAB PO SCH (22:21)
[2024-10-13] MEDS: PANTOPRAZOLE 40MG TAB (PROTONIX) PO SCH (22:21)
[2024-10-13] MEDS: CEFEPIME HCL 2 GM in DEXTROSE 5% (D5W) ADV/MINI-BAG 50 ML IV SCH (22:36)
[2024-10-13] MEDS: methylPREDNISolone 125MG 2ML VIAL IV SCH (22:57)
[2024-10-14] VITALS (8 sets, daily range): BP systolic 134–164; BP diastolic 66–89; TEMP 97.2–98.4; O2SAT 85–93
[2024-10-14] MEDS: TIOTROPIUM INHALER/CAPSULE (SPIRIVA) INH SCH (07:57)
[2024-10-14 09:08] LABS: HEMATOCRIT 39.2 % (42.0-52.0); HEMOGLOBIN 12.5 g/dl (13.5-17.5); MEAN CORPUSCULAR HEMOGLOBIN 29.6 pg (27.0-33.0); MEAN CORPUSCULAR HGB CONC 31.9 g/dl (32.0-36.5); MEAN CORPUSCULAR VOLUME 92.9 fl (80.0-96.0); PLATELET COUNT, AUTOMATED 348 10^3/uL (150-450); RED BLOOD COUNT 4.22 10^6/uL (4.30-6.10); WHITE BLOOD COUNT 10.4 10^3/uL (4.0-10.0)
[2024-10-14] MEDS: ASPIRIN 81MG CHEW TABLET PO SCH (09:10)
[2024-10-14] MEDS: ATORVASTATIN 20 MG TAB PO SCH (09:10)
[2024-10-14] MEDS: HEPARIN SOD (PORCINE) 5000UNITS/ML 1ML VIAL/SYRINGE SC SCH (09:10)
[2024-10-14] MEDS: INSULIN LISPRO (NovoLOG) PER UNIT SC SCH (09:10)
[2024-10-14 09:43] LABS: BLOOD UREA NITROGEN 19 MG/DL (9-23); CALCIUM LEVEL 8.5 MG/DL (8.3-10.6); CARBON DIOXIDE LEVEL 29 MMOL/L (20-31); CHLORIDE LEVEL 102 MMOL/L (98-107); CREATININE FOR GFR 0.97 MG/DL (0.70-1.30); GLOMERULAR FILTRATION RATE > 60.0 (>42); GLUCOSE, FASTING 148 MG/DL (74-106); POTASSIUM SERUM 4.5 MMOL/L (3.5-5.1); SODIUM LEVEL 141 MMOL/L (136-145)
[2024-10-14 09:49] LABS: PROCALCITONIN 0.15 ng/ml
[2024-10-14] MEDS: LevoFLOXacin 750 MG TABLET PO SCH (19:47)
[2024-10-15 03:48] VITALS: BP 150/77; TEMP 98.1; O2SAT 90
[2024-10-15 05:53] VITALS: BP 152/78
[2024-10-15 06:18] LABS: HEMATOCRIT 35.8 % (42.0-52.0); HEMOGLOBIN 11.4 g/dl (13.5-17.5); MEAN CORPUSCULAR HEMOGLOBIN 29.3 pg (27.0-33.0); MEAN CORPUSCULAR HGB CONC 31.8 g/dl (32.0-36.5); PLATELET COUNT, AUTOMATED 314 10^3/uL (150-450); RED BLOOD COUNT 3.89 10^6/uL (4.30-6.10); WHITE BLOOD COUNT 17.7 10^3/uL (4.0-10.0)
[2024-10-15 06:49] LABS: BLOOD UREA NITROGEN 29 MG/DL (9-23); CALCIUM LEVEL 8.3 MG/DL (8.3-10.6); CARBON DIOXIDE LEVEL 27 MMOL/L (20-31); CHLORIDE LEVEL 104 MMOL/L (98-107); CREATININE FOR GFR 1.12 MG/DL (0.70-1.30); GLOMERULAR FILTRATION RATE > 60.0 (>42); GLUCOSE, FASTING 165 MG/DL (74-106); POTASSIUM SERUM 4.1 MMOL/L (3.5-5.1); SODIUM LEVEL 141 MMOL/L (136-145)
[2024-10-15 08:00] VITALS: BP 140/69; TEMP 98.1; O2SAT 89
[2024-10-15 12:00] VITALS: BP 139/70; TEMP 98.6; O2SAT 92
[2024-10-15] MEDS ORDERED: PRED10TA2 PO (14:58)
[2024-10-15] MEDS ORDERED: LEVO75TAB PO (14:58)
== END 2024-10-15 16:14 | disposition home or self-care (01) | DRG 70 ==
LOC: EDBD 09:09 → M ED 09:09 → M ED INP 18:34 → M MSPAV 20:08
PROVIDERS: ADMIT Student in an Organized Health Care Education/Training Program; ATTEND Student in an Organized Health Care Education/Training Program
DX: G93.41 Metabolic encephalopathy (principal); J18.9 Pneumonia, unspecified organism; C91.10 Chronic lymphocytic leukemia of B-cell type not having achieved remission; J44.1 Chronic obstructive pulmonary disease with (acute) exacerbation; J44.0 Chronic obstructive pulmonary disease with (acute) lower respiratory infection; K74.60 Unspecified cirrhosis of liver; E11.9 Type 2 diabetes mellitus without complications; I10 Essential (primary) hypertension; D64.9 Anemia, unspecified; E78.5 Hyperlipidemia, unspecified; K21.9 Gastro-esophageal reflux disease without esophagitis; N40.1 Benign prostatic hyperplasia with lower urinary tract symptoms; F17.200 Nicotine dependence, unspecified, uncomplicated; B18.2 Chronic viral hepatitis C; Z79.899 Other long term (current) drug therapy; Z79.82 Long term (current) use of aspirin

== ENCOUNTER → 2025-05-20 | Outpatient (REF) | payer MEDICARE ==
[~2025-05-20] MED LIST changes: +DOXY-442 PO; -DOXY100C82 PO; -IBUP-1022 PO; -IBUP1TAB6 PO; +IBUP600T42 PO; +LEVO75TAB PO; +SFHIBU600 PO
[2025-05-20 17:32] LABS: BASO # 0.1 10^3/uL (0.0-0.2); BASO % 0.6 % (0.0-1.0); EOS # 0.4 10^3/uL (0.0-0.5); EOS % 2.5 % (0.0-3.0); LYMPH # 3.8 10^3/uL (1.5-5.0); LYMPH % 26.7 % (24.0-44.0); MONO # 1.0 10^3/uL (0.0-0.8); MONO % 7.1 % (2.0-8.0); NEUTROPHILS # 8.9 10^3/uL (1.5-8.5); NEUTROPHILS % 62.7 % (36.0-66.0); PLATELET COUNT, AUTOMATED 256 10^3/uL (150-450)
[2025-05-20 17:43] LABS: MALB URINE SIEMENS < 3.0 MG/L
[2025-05-20 17:44] LABS: CREATININE, URINE 34.4 MG/DL
[2025-05-20 17:45] LABS: FREE T4 1.04 NG/DL (0.89-1.76)
[2025-05-20 17:46] LABS: IRON (FE) 36.0 UG/DL (65-175); TOTAL 25(OH) VITAMIN D 67.2 NG/ML (20.0-100.0)
[2025-05-20 17:47] LABS: ALT/SGPT 15.0 U/L (7.0-40); AST/SGOT 18.0 U/L (<34); CALCIUM LEVEL 8.9 MG/DL (8.3-10.6); CARBON DIOXIDE LEVEL 31.0 MMOL/L (20-31); CHLORIDE LEVEL 101.0 MMOL/L (98-107); CHOLESTEROL LEVEL 104.0 MG/DL (<200); CHOLESTEROL RISK RATIO 2.4 (<5); CREATININE FOR GFR 1.05 MG/DL (0.70-1.30); GLOMERULAR FILTRATION RATE 75.0 (>42); LDL CHOLESTEROL 45.1 MG/DL (<100); NON-HDL-C 60.7 MG/DL; POTASSIUM SERUM 5.2 MMOL/L (3.5-5.1); SODIUM LEVEL 139.0 MMOL/L (136-145); TRIGLYCERIDES LEVEL 78.0 MG/DL (<150); VITAMIN B12 LEVEL 431.0 PG/ML (211-911)
[2025-05-20 18:20] LABS: ESTIMATED AVERAGE GLUCOSE 111.0 MG/DL (60-110)
== END ==
LOC: M SFHCADAM 13:31
PROVIDERS: ATTEND Physician Assistant Medical
DX: E11.9 Type 2 diabetes mellitus without complications (principal); G93.40 Encephalopathy, unspecified; K22.70 Barrett's esophagus without dysplasia; J96.12 Chronic respiratory failure with hypercapnia; I10 Essential (primary) hypertension